=== PATIENT | male | born 1970 | race Two or more races ===

== ENCOUNTER 2025-05-28 08:01 | Inpatient (IN) | payer OTHER, SELFPAY ==
[2025-05-26 14:19] VITALS: BP 156/96
[2025-05-26 18:17] VITALS: BMI 31.5
[2025-05-26 18:20] VITALS: BP 179/111
[2025-05-26 19:00] LABS: Hematocrit 46.3 % (39.0-52.0); Hemoglobin 16.0 g/dL (13.0-18.0); Mean Corp Hgb Conc. 34.6 g/dL (33.0-37.0); Mean Corpuscular Volume 80.7 fL (80.0-94.0); Nucleated Red Blood Cells % 0 % (-); Platelet Count 301 10^3/uL (130-400); Red Cell Dist. Width 13.3 % (11.5-14.5)
[2025-05-26 19:15] LABS: ALT (SGPT) 37 U/L (0-50); AST (SGOT) 32 U/L (17-59); Albumin 4.8 g/dl (3.5-5.0); Alkaline Phosphatase 101 U/L (38-126); Blood Urea Nitrogen 11 mg/dl (9-20); Calcium 9.6 mg/dl (8.4-10.2); Carbon Dioxide 24 mmol/L (22-30); Chloride 106 mmol/L (98-107); Estimated Creatinine Clearance > 125 ml/min; Glucose 90 mg/dl (70-99); Potassium 3.6 mmol/L (3.5-5.1); Sodium 141 mmol/L (135-145); Total Protein 7.3 g/dl (6.3-8.2); eGFR > 60.00
--- NOTE | 2025-05-26 20:03 | ED.GENMED ---
History of Present Illness
General
Chief Complaint: Weakness
Source: patient and family
Exam Limitations: none
Time Seen by Provider: 05/26/25 18:06
Nursing documentation reviewed up to this point in time: agreed with
History of Present Illness
History of Present Illness:
55-year-old male presenting to the emergency department today with concerns of significant weakness diffusely maximal to the lower extremities. Apparently has had some degree of weakness to his lower extremities for many years. He follow-up with a
primary care doctor about this and he was told that he has muscle atrophy. He did have a back injury as a child and had some degree of weakness that was ongoing. He claims that over the past few years this has been worsening but specifically over
the past few days has gotten to the point where he cannot engage in activities of daily living. He was unable to get in and out of a car today. He has been using a cane for multiple years. He denies any known specific diagnosis is otherwise. He
does have a history of back surgeries. He has clonus and weakness in the arms as well as legs. Denies any recent fevers nausea vomiting chest pain shortness of breath any changes in bowel movements or bladder function.
Past History
Past History
ED Past Medical History: None
ED Past Surgical History: None
Social History
Tobacco: Non-smoker
Review of Systems
Review of Systems
Allergies reviewed?: Yes
All Other Systems: ROS reviewed and negative except as documented in HPI and ROS
Phy Exam
Physical Exam
Physical Exam:
GENERAL: Alert , in no apparent distress
EYE: pupils equal and reactive
NECK: Supple, no significant adenopathy.
ENT: o/p clr, mmm.
CARDIAC: Regular rate and rhythm .
LUNGS: Clear breath sounds bilaterally, no acute respiratory distress, no wheezes/rales/rhonchi
ABDOMEN: Soft, without focal tenderness, no r/g, no cvat
NEUROLOGICAL: Alert and oriented, patient is unable to move the lower extremities bilaterally to any significant extent. Unable to move against gravity. Does not have patellar tendon reflexes that are appreciable on my exam. Does have sensation
but claims that it is decreased bilaterally. 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
SKIN: Warm and dry, skin intact.
MUSCULOSKELETAL: No edema, well perfused.
PSYCH: Normal and appropriate interaction.
Course
Orders/Labs/Results
Orders:
Orders
05/26/25 18:31
CT Head W/o Iv Contrast Urgent
Comment:
Reason For Exam: diffuse weakness
05/26/25 18:50
CBC/With Diff [Complete Blood Count/With Diff] Urgent
CMP [Comprehensive Metabolic Panel] Urgent
ESR [Erythrocyte Sed Rate] Urgent
05/26/25 20:05
CRP [C-Reactive Protein] Urgent
Urinalysis Reflex To Culture Urgent
Date Specimen was Collected: 05/26/25
Time Specimen was Collected: 19:53
Urine Microscopic Reflex Cult Urgent
Abnormal Lab Results
05/26/25 05/26/25
18:50 20:05
Absolute Neuts (auto) 7.7 H 10^3/uL
(1.4-6.5)
Absolute Monos (auto) 0.7 H 10^3/uL
(0.1-0.6)
Neutrophils % 79.9 H %
(42.2-75.2)
Lymphocytes % 12.7 L %
(20.5-51.1)
Creatinine 0.4 L mg/dL
(0.7-1.3)
Total Bilirubin 3.0 H mg/dl
(0.2-1.3)
Urine Ketones 3+ A
(Negative)
Ur Occult Blood Reflex 1+ A
(Negative)
Urine RBC 3-6 A /HPF
(0-2)
Urine Bacteria (Reflex) Few A
(Negative)
Urine Albumin (Reflex) 1+ A
(Neg - Trace)
05/26/25 18:50
05/26/25 18:50
Vital Signs
Initial and Last Documented VS:
Initial Vital Signs
Temp Pulse Resp BP Pulse Ox
98.8 F 108 16 156/96 98
05/26/25 14:19 05/26/25 14:19 05/26/25 14:19 05/26/25 14:19 05/26/25 14:19
Last Documented Vital Signs
Temp Pulse Resp BP Pulse Ox
98.8 F 68 15 153/109 94
05/26/25 14:19 05/27/25 00:11 05/27/25 00:11 05/27/25 00:12 05/27/25 00:11
MDM/Problems Addressed
MDM/Problems Addressed:
55-year-old male presenting to the emergency department today with concerns of generalized weakness fatigue maximal to his legs worsening over many years but specifically severe over the past few days. He has no specific explanation for this does
not follow-up with any outpatient doctors for this. This finally got so bad that he cannot perform normal activities at home. No specific explanation labs urinalysis or head CT. Plan to admit for PT assessment management consult and potential
neuroeval
*Pulse Oximetry
SaO2: 100
Oxygen Mode of Delivery: Room air
Patient hypoxic: no (94)
*Critical Care Note
Total Time (30-74mins, 75-104mins- exclusive of procedures): Not Applicable
ED Attending Note
-
Portions of this chart may have been created with voice recognition software.� Occasional wrong word or��sound alike� substitutions may have occurred due to the inherent limitations of voice recognition software.
Discharge Plan
Departure
Patient Disposition: Admit
Date of Disposition: 05/27/25
Time of Disposition: 00:15
Admit to: Med/Surg
Admit to doctor: Angelica
Presentation/result/management discussed w/ accepting MD/DO: Hospitalist
Patient with high blood pressure during this ER visit?: No
Condition: Good
Covid-19: Not Applicable
Discharge Problem:
Generalized weakness
Prescriptions:
No Action
clindamycin HCl 300 MG capsule
300 mg PO TID Qty: 21 0RF
Referrals:
Foster Valencia MD [Family Provider, Internal Medicine]
Interventions
Interventions:
*Risk Screen - Suicide Last Done: 05/26/25 14:19
*General Assessment Last Done: 05/26/25 18:13
*Neglect/Abuse Screening Last Done: 05/26/25 14:19
*ED- Fall Risk Assessment Last Done: 05/26/25 18:13
*ED COVID-19 Vaccine History Last Done: 05/26/25 18:13
ED- Cardiac Assessment Last Done: 05/26/25 18:13
ED- Neurological Assessment Last Done: 05/26/25 18:13
ED- Pulmonary Assessment Last Done: 05/26/25 18:13
Discharge Date and Time
Print Language: CZECH
[2025-05-26 20:15] LABS: Urine Character Clear (Clear)
[2025-05-26 20:23] LABS: Urine Squamous Cell 0-2 /LPF (Few)
[2025-05-26 20:40] LABS: C-Reactive Protein < 5.00 mg/L (0.0-10.00)
[2025-05-27] VITALS (11 sets, daily range): BP systolic 128–169; BP diastolic 82–109; BMI 28.6
--- NOTE | 2025-05-27 01:29 | HPS.HSE ---
Family Physician
-
Family Physician: Foster Valencia MD
Chief Complaint
-
Weakness
History of Present Illness
This is a 55-year-old male who reports a past medical history of spinal stenosis of the lumbar spine requiring fusion of L4-5 and discectomy at age 19 with residual weakness ever since presenting to the emergency department with progressive weakness
over the last several months without any specified time of change.
Patient reported that about 6 years ago he has had chronic worsening weakness and was evaluated by physicians. He had lab studies and they did not find any abnormality. He was started on physical therapy. Was told that he had significant muscle
atrophy. However patient was unable to continue with physical therapy during COVID. He also attempted home physical therapy but insurance will not cover.
Patient stated that over the last few weeks he has been planning on starting therapy in the fall but his weakness has worsened to the point of coming to the emergency department. He reports that he is now unable to ambulate will despite use of a
walker. He has to crawl to get himself between bedside and commode. He also has difficulty using his bilateral upper extremities for support. Patient denies having any pain. He denies any neck pain or back pain. He denies any paresthesias or
numbness. He denies any recent injuries. He has no fevers or chills. He denies any nausea vomiting or diarrhea. He denies having any headache. There has been no vision changes. He denies any urinary symptoms specifically denies incontinence of
the bowel or bladder. He has not followed with any physician for many years.
In the emergency department he was afebrile, blood pressure was 150/100 with a pulse of 68 satting 98% on room air.
CBC was unremarkable. Electrolytes BUN and creatinine were all in the normal range. His LFTs were normal. Inflammatory markers were negative. Her urinalysis was negative. CT of the head shows no acute intracranial abnormality.
Medical History
Past Medical History
Past Medical History: Reports Other (Chronic generalized weakness, lumbar stenosis status post L4-5 fusion and discectomy at age 19)
Past Surgical History: Reports Orthopedic
Social History
Tobacco: Non-smoker
Alcohol: Occasional
Drug: None
Personal: Single
Living: Alone
Employment: Employed
Family History
Family History: Not pertinent
Allergies / Home Medications
Allergies reflects when Allergies were last updated in [facility].
Home Medications with original date entered in [facility]
Allergy/Medication List:
Allergies
Allergy/AdvReac Type Severity Reaction Status Date / Time
amoxicillin Allergy Anaphylaxis Verified 05/26/25 14:18
Penicillins Allergy Anaphylaxis Verified 05/26/25 14:18
povidone-iodine (From Allergy Rash Verified 05/26/25 14:18
Betadine)
Home Medications
clindamycin HCl 300 mg capsule 300 mg PO TID #21 caps 04/20/17
Review of Systems
-
Constitutional: Reports No Symptoms
EENT: Reports No Symptoms
Respiratory: Reports No Symptoms
Cardiac: Reports No Symptoms
Abdomen/GI: Reports No Symptoms
: Reports No Symptoms
Musculoskeletal: Reports No Symptoms
Skin: Reports No Symptoms
Neurological: Reports Weakness
Endocrine: Reports No Symptoms
Hematologic/Lymphatic: Reports No Symptoms
Psych: Reports No Symptoms
Physical Exam
Vital Signs
Vital Signs
Temp Pulse Resp BP Pulse Ox
98.8 F 68 15 153/109 94
05/26/25 14:19 05/27/25 00:11 05/27/25 00:11 05/27/25 00:12 05/27/25 00:11
Physical Exam
General: Well Developed, Well Nourished and No Apparent Distress
HEENT: NormoCephalic, Moist mucous membranes and Atraumatic
Respiratory: Clear
Cardiac: S1/S2 and Regular Rhythm; No Murmur or Rub
GI: Soft, Non Tender, Non Distended and Normal Bowel Sounds; No Organomegaly
Rectal: Deferred by Provider
Musculoskeletal: No Clubbing, No Cyanosis and No Edema
Skin: No Rash
Neuro: AO x 3, Cranial Nerves Intact and Other (3 out of 5 weakness in bilateral lower extremities from the hip to the ankles and toes. 3 out of 5 to 4 out of 5 weakness in the upper extremities bilaterally. Negative straight leg raise)
Hematologic/Lymphatic: No Lymphadenopathy
Laboratory Results
-
05/26/25 18:50
05/26/25 18:50
Laboratory Results
Total Bilirubin 3.0 mg/dl (0.2-1.3) H 05/26/25 18:50
AST 32 U/L (17-59) 05/26/25 18:50
ALT 37 U/L (0-50) 05/26/25 18:50
Alkaline Phosphatase 101 U/L (38-126) 05/26/25 18:50
Data Reviewed
-
CT Scan: Report Reviewed by me
Lab Data: Labs Reviewed by me
Impression/Plan
-
IMPRESSION:
55-year-old with longstanding history of generalized weakness secondary to L4-5 fusion at age 19 presenting to the emergency department with worsening weakness without any findings of an acute infectious process, no focal deficits consistent with
stroke and a negative CT, labs shows no toxic metabolic encephalopathy send patient has no new medications or intoxications.'s examination is negative for an acute spinous process with negative stress left leg and no neck pain or tenderness. He has
no alarm signs such as bladder or bowel incontinence and no saddle anesthesia. He is weakness seems to be quite profound and out of proportion to his ability to manage at home.
PLAN:
Generalized weakness -history of L4-5 fusion with chronic lower extremity weakness and also has had chronic upper extremity weakness that was thought to be secondary to muscle atrophy now presenting with inability to ambulate and manage at home. No
focal findings on history exam labs or imaging. No vision changes or CN anomaly suggestive of MG/LE.
-Admit to MedSurg observation
-Will get MRI of the brain and C-spine
-Inflammatory markers are negative, will check CPK but unlikely any myopathy
-No indication for any new pain control agent
-Start PT evaluation
-Case management for discharge planning
DVT prophylaxis�Lovenox subcu
CODE STATUS�full code
--- NOTE | 2025-05-27 03:30 | PTCARENOTE ---
Received patient from ED. Patient AAOx3, transferred directly from stretcher to the bed. Patient assessed. Patient's legs very weak. Patient verbalized an understanding to ring for all transfers. Patient oriented to the unit. Bed alarm placed.
[2025-05-27 06:28] LABS: Blood Urea Nitrogen 8 mg/dl (9-20); Calcium 9.3 mg/dl (8.4-10.2); Carbon Dioxide 22 mmol/L (22-30); Chloride 106 mmol/L (98-107); Estimated Creatinine Clearance > 125 ml/min; Glucose 85 mg/dl (70-99); Potassium 3.2 mmol/L (3.5-5.1); Sodium 140 mmol/L (135-145); eGFR > 60.00
[2025-05-27] MEDS: 0.45%NACL 1000 IV ×2 (09:29→22:53)
[2025-05-27] MEDS: KCL 40 MEQ PO (09:33)
--- NOTE | 2025-05-27 12:00 | W.PN.HOSP.TC ---
Today's Communication/Plan
-
Assessment / Plan
Assessment / Plan
General: No Apparent Distress, Comfortable and Conversant
HEENT: NormoCephalic, Moist mucous membranes, Atraumatic
Respiratory: Clear and Non Labored Respirations
Cardiac: S1/S2 and Regular Rhythm; No Rub or Gallop
GI: Soft, Non Tender, Non Distended and Normal Bowel Sounds
Musculoskeletal: No Edema, no deformity, decreased muscle bulk throughout upper and lower extremities
Skin: Warm and dry
: NO Urena
Neuro: Awake, Alert, Nonfocal/grossly intact, upper extremity paresthesias, generalized weakness in his extremities lower extremities worse than upper extremities
Psych: Calm and Intact Judgment/Insight
Mr. Collins is a 55-year-old male with a medical history of lumbar spinal stenosis (due to vertebral disc herniations, status post spinal fusion at age 19) who presented with progressive weakness in his upper and lower extremities over the past few
months which is now limiting his ability to ambulate. He had previously been able to ambulate with the assistance of a cane or walker. However, recently he has had to move about his home by crawling and now his arms have become so weak he is
unable even to do that which is why he has presented for medical evaluation. He does not follow-up with any physicians on a regular basis.
Generalized weakness:
- Appears acute on chronic as he had some residual lower extremity weakness following his spinal fusion at age 19, however has worsened over the last few months and is now affecting his arms as well
- No demyelinating disease seen on brain and C-spine MRI, does show C5-6 uncovertebral/facet disease contributing to minimal spinal canal and moderate neuroforaminal stenosis
- Does have mildly elevated CK
- Appreciate neurology input
- To be evaluated by PT/OT
- Only mild electrolyte abnormalities with serum potassium of 3.2 which is being repleted
Hypokalemia:
- Mild, replete
- Monitor
Elevated CK:
- Mild to moderately elevated at 477
- Does not meet criteria for rhabdomyolysis although this may be a smoldering case due to neuromuscular pathology
- No renal dysfunction
- Continue IV fluids
- ESR and CRP negative
- Further neurology evaluation for possible neuromuscular pathology
- Repeat CK with morning labs
Hyperbilirubinemia:
- No abdominal symptoms
- Appears to be an isolated hyperbilirubinemia
- Transaminases and alk phos within normal limits
- Will repeat LFTs in the morning with a direct bilirubin
Hypertension:
- Not on antihypertensive medications at home although does not follow-up regularly with physicians
- Will start him on low-dose losartan especially considering proteinuria
- Monitor, adjust regimen as needed
DVT prophylaxis: Lovenox
CODE STATUS: Full code
Total time spent on today's encounter was 52 minutes
Anticipated Discharge: 24 - 48 hours
Subjective/Interval History
-
Date of Service: May 27, 2025
Patient was seen and examined at bedside this morning. Still feeling generalized weakness in his arms and legs.
Objective Data
-
Labs:
Laboratory Results
05/27/25
05:09
Sodium 140
Potassium 3.2 L
Chloride 106
Carbon Dioxide 22
BUN 8 L
Creatinine 0.4 L
Glucose 85
Calcium 9.3
Vital Signs:
Vital Signs
Temp Pulse Resp BP Pulse Ox
98.2 F 92 16 165/98 100
05/27/25 07:05 05/27/25 09:44 05/27/25 07:05 05/27/25 09:44 05/27/25 10:15
Review of Systems
-
History Source: Patient
All other systems: Reviewed and negative
Constitutional: Reports Weakness
Physical Exam
-
General: No Apparent Distress
[2025-05-27] MEDS: COZAAR 25 MG PO (12:44)
--- NOTE | 2025-05-27 16:39 | CM ---
Met with patient at bedside
Pharmacy verified: [facility] @ [address] [place] [address]
Lives alone; split level home; 73 yr old mother is visiting for now; 0 steps to enter home; unable to do the stairs; make shift one floor living space on the lower level of the house
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
Transportation home to be determined; arrived via ambulance
No SNF or Home Health utilization history
CM Consult for Home Health/VN; agency options identified; preference is [facility]; referral sent via [facility]
Plan: Discharge to home when medically stable w/ Home Health services
--- NOTE | 2025-05-27 16:44 | CON.NEURO ---
Neuro Assessment/Plan
Assessment
brain MRI imgs rev'd, normal
MRI c-spine report rev'd mild degenerative changes that do not explain his quadriparesis
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
check EMG, TT sent to Dr Casas to see if its possible
spoke with patient/family re suspected dx, EMG, and if CIDP then IVIG
Consultation
Order
Date of Consultation: 05/27/25
Requesting Provider:
Reason for Consult:
Subjective/Objective
Subjective Data
Date of Service: May 27, 2025
from h&p:
This is a 55-year-old male who reports a past medical history of spinal stenosis of the lumbar spine requiring fusion of L4-5 and discectomy at age 19 with residual weakness ever since presenting to the emergency department with progressive weakness
over the last several months without any specified time of change.
Patient reported that about 6 years ago he has had chronic worsening weakness and was evaluated by physicians. He had lab studies and they did not find any abnormality. He was started on physical therapy. Was told that he had significant muscle
atrophy. However patient was unable to continue with physical therapy during COVID. He also attempted home physical therapy but insurance will not cover.
Patient stated that over the last few weeks he has been planning on starting therapy in the fall but his weakness has worsened to the point of coming to the emergency department. He reports that he is now unable to ambulate will despite use of a
walker. He has to crawl to get himself between bedside and commode. He also has difficulty using his bilateral upper extremities for support. Patient denies having any pain. He denies any neck pain or back pain. He denies any paresthesias or
numbness. He denies any recent injuries. He has no fevers or chills. He denies any nausea vomiting or diarrhea. He denies having any headache. There has been no vision changes. He denies any urinary symptoms specifically denies incontinence of
the bowel or bladder. He has not followed with any physician for many years.
patient tells me at age 19 herniated disc/sports injury with left>right leg weakness, had 2x discectomy no hardware made a full recovery. did well until ~6 years ago then developed weakness left then right leg but was able to function. past few
months rapidly progress weakness, and 1.5 weeks unable to function.
+tingling hands/feet, +pain from pinched nerve by left shoulder
Last EMG age 19 prior to spine surgery
fhx: mom has 3x autoimmune diseases
Objective Data
Vital Signs
Temp Pulse Resp BP Pulse Ox
37.6 C 87 16 143/97 97
05/27/25 15:15 05/27/25 15:15 05/27/25 15:15 05/27/25 15:15 05/27/25 15:15
Lab Results
05/26/25 18:50
05/27/25 05:09
Sodium 140 mmol/L (135-145) 05/27/25 05:09
Potassium 3.2 mmol/L (3.5-5.1) L 05/27/25 05:09
BUN 8 mg/dl (9-20) L 05/27/25 05:09
Glucose 85 mg/dl (70-99) 05/27/25 05:09
Calcium 9.3 mg/dl (8.4-10.2) 05/27/25 05:09
Patient Allergies
amoxicillin Allergy (Verified 05/26/25 14:18)
Anaphylaxis
Penicillins Allergy (Verified 05/26/25 14:18)
Anaphylaxis
povidone-iodine (From Betadine) Allergy (Verified 05/26/25 14:18)
Rash
Physical Exam
-
AAOx3, speech clear, language intact
VFF, EOMI, face symmetric
bilateral arms some antigravity, bilateral legs move in plane of bed
diffusely decreased pinprick, moderate vibratory loss left > right leg, and mild vibratory loss
areflexic x4
Medications
-
Active Medications
Generic Name Dose Route Start Last Admin
Trade Name Freq PRN Reason Stop Dose Admin
Acetaminophen 650 mg 05/27/25 03:09
Acetaminophen 325 Mg Tablet PO 06/24/25 03:08
Q4HPRN PRN
mild pain/MARQUES/temp> 100.4F
Bisacodyl 10 mg 05/27/25 03:09
Bisacodyl 10 Mg Rectal Suppository RECTAL 06/24/25 03:08
[id number] PRN
constipation
Enoxaparin Sodium 40 mg 05/27/25 18:00
Enoxaparin Sodium 40 Mg/0.4 Ml Syringe SC 06/24/25 17:59
QPM LAVELLE
Sodium Chloride 1,000 mls @ 80 mls/hr 05/27/25 09:00 05/27/25 09:29
0.45%Nacl IV 1,000 mls
.[id number] LAVELLE Administration
Losartan Potassium 25 mg 05/27/25 13:00 05/27/25 12:44
Losartan 25 Mg Tablet PO 06/24/25 12:59 25 mg
DAILY LAVELLE Administration
Ondansetron HCl 4 mg 05/27/25 03:09
Ondansetron 4 Mg/2 Ml Vial IV 06/24/25 03:08
Q6HPRN PRN
nausea and vomiting
Polyethylene Glycol 17 grams 05/27/25 03:09
Polyethylene Glycol Powder 17 Grams Packet PO 06/24/25 03:08
DAILYPRN PRN
constipation
Senna/Docusate Sodium 1 tablet 05/27/25 03:09
Docusate W/Senna (Kelsie-Colace) Tablet PO 06/24/25 03:08
BIDPRN PRN
constipation
Home Medications
�Medication �Instructions �Recorded
clindamycin HCl 300 mg capsule 300 mg PO TID #21 caps 04/20/17
--- NOTE | 2025-05-27 16:47 | CM ---
Addendum entered by Sugey Rosales 05/27/25 16:55:
Both CM consults were completed; no home health referrals were sent
Notified Attending via [facility] [employer] and requested PM&R consult order to determine if patient meets Acute Rehab criteria
Original Note:
Met with patient at bedside
Ph[facility] verified[facility] [address] [place] [address]
Lives alone; split level home; 73 yr old mother is visiting for now; 0 steps to enter home; unable to do the stairs; make shift one floor living space on the lower level of the house
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
Transportation home to be determined; arrived via ambulance
No SNF or Home Health utilization h
Discharge plan to be determined; PT recommends Acute Rehab vs. SNF; patient is agreeable with either
[2025-05-27] MEDS: LOVENOX 40 MG SC (17:06)
[2025-05-28 07:02] VITALS: BP 136/84
[2025-05-28 08:04] LABS: Hematocrit 42.4 % (39.0-52.0); Hemoglobin 14.2 g/dL (13.0-18.0); Mean Corp Hgb Conc. 33.5 g/dL (33.0-37.0); Mean Corpuscular Volume 83.3 fL (80.0-94.0); Nucleated Red Blood Cells % 0 % (-); Platelet Count 241 10^3/uL (130-400); Red Cell Dist. Width 13.3 % (11.5-14.5)
[2025-05-28] MEDS: COZAAR 25 MG PO (08:18)
[2025-05-28 08:42] LABS: ALT (SGPT) 27 U/L (0-50); AST (SGOT) 21 U/L (17-59); Albumin 3.8 g/dl (3.5-5.0); Alkaline Phosphatase 72 U/L (38-126); Blood Urea Nitrogen 7 mg/dl (9-20); Calcium 9.2 mg/dl (8.4-10.2); Carbon Dioxide 25 mmol/L (22-30); Chloride 107 mmol/L (98-107); Estimated Creatinine Clearance > 125 ml/min; Glucose 106 mg/dl (70-99); Magnesium 2.0 mg/dl (1.6-2.3); Potassium 4.2 mmol/L (3.5-5.1); Sodium 138 mmol/L (135-145); Total Protein 6.1 g/dl (6.3-8.2); eGFR > 60.00
[2025-05-28 09:49] LABS: C-Reactive Protein < 5.00 mg/L (0.0-10.00)
--- NOTE | 2025-05-28 10:13 | W.PN.NEURO.1 ---
Addendum entered and electronically signed by Prince Crespo MD 05/28/25 16:46:
Studies reviewed.
I have personally examined the patient. I reviewed and agree with the [employer] REPAIRER's Note.
My addenda:
Awake, alert, interactive. No acute distress.
Speech intact.
Follows 2-step requests w/o difficulty. No tremor.
Extra-ocular movements grossly intact.
Facial movements full and symmetric. Hearing intact to normal conversational volume.
Shoulder shrug equal bilaterally, unable to extend bilateral upper extremities fully. Unable to elevate legs off of bed
Neck: full ROM.
Chest: no dyspnea
Heart: no JVD
Ext: (-) Clubbing, (-) Cyanosis, (-) Edema
IMPRESSIONS/RECOMMENDATIONS:
Progressive onset of weakness beginning in bilateral lower extremities and progressing to involve bilateral upper extremities with mildly elevated CPK in the 300s�400s, elevated bilirubin and hyporeflexia. Symptoms are not variable during the day
or with activity. Imaging of the brain and cervical spine have been unremarkable. Differential diagnosis includes CIDP, myotonic dystrophy, metabolic disorder, and myasthenia gravis although this is unlikely
Check upper and lower extremity EMG study to determine if there is a motor and sensory component to symptoms as well as needle portion to determine if there is a muscular abnormality
Supportive care by physical therapy
Check blood work potential abnormalities
Consider lumbar puncture
No real benefit to imaging of the thoracic or lumbar spines
D/W patient
All questions answered.
Will continue to follow patient.
Original Note:
Today's Communication / Plan
-
-check EMG as planned
-check LP
-check blood work for metabolic disturbances
-PT/OT evaluations
-DVT prophylaxis
Neuro Assessment/Plan
Assessment
55 year old male with a medical history of lumbar spinal stenosis (due to vertebral disc herniations, status post spinal fusion at age 19) who presented with progressive weakness in his upper and lower extremities over the past few months which is
now limiting his ability to ambulate.
brain MRI imgs rev'd, normal
MRI c-spine report rev'd mild degenerative changes that do not explain his quadriparesis
Plan
Impression: progressive weakness of upper and lower extremities now limiting ambulation most likely due to neuromuscular disease as brain MRI and cervical MRI do not explain symptoms
-check EMG as planned
-check LP
-check blood work for metabolic disturbances
-PT/OT evaluations
-DVT prophylaxis
Subjective/Objective
Subjective Data
Date of Service: May 28, 2025
Right handed male, had 2 herniated discs and having sensation changes and weakness to b/l legs at the age of 19 which required surgery. Recently, progressive b/l leg weakness ongoing for a couple of years. Has done PT and did not see any
improvement. Has never seen a neurologist, as never obtained nerve testing. States left LLE worse than RLE. Upper extremities have been stable until a few months ago and now having more weakness. No issues with vision, no issues with speech or
swallowing. Denies issues with bowel/bladder.
Objective Data
Vital Signs
Temp Pulse Resp BP Pulse Ox
97.7 F 64 16 136/84 100
05/28/25 07:02 05/28/25 07:02 05/28/25 07:02 05/28/25 07:02 05/28/25 07:02
Lab Results
05/28/25 06:57
05/28/25 06:57
Sodium 138 mmol/L (135-145) 05/28/25 06:57
Potassium 4.2 mmol/L (3.5-5.1) D 05/28/25 06:57
BUN 7 mg/dl (9-20) L 05/28/25 06:57
Glucose 106 mg/dl (70-99) H 05/28/25 06:57
Calcium 9.2 mg/dl (8.4-10.2) 05/28/25 06:57
Phosphorus 3.8 mg/dl (2.5-4.5) 05/28/25 06:57
Vitamin B12 Cancelled 05/28/25 08:31
Patient Allergies
amoxicillin Allergy (Verified 05/26/25 14:18)
Anaphylaxis
Penicillins Allergy (Verified 05/26/25 14:18)
Anaphylaxis
povidone-iodine (From Betadine) Allergy (Verified 05/26/25 14:18)
Rash
Review of Systems
-
History Source: Patient
Constitutional: Weakness
EENT: No Symptoms Reported
Respiratory: No Symptoms
Cardiac: No Symptoms
Abdomen/GI: No Symptoms
Genitourinary: No Symptoms
Musculoskeletal: Muscle Weakness
Skin: No Symptoms
Neuro: Weakness
Physical Exam
-
General: No Apparent Distress and Comfortable
HEENT: Normocephalic, Atraumatic and Anicteric
Neck: Limited Range of Motion
Respiratory: No Dyspnea
Cardiac: No JVD
GI: Non-distended
Skin: Unremarkable
Extremities: No Clubbing, No Cyanosis and Edema +1 (b/l LEs)
Psych: Unremarkable
Extended Neurological Exam
Mood & Affect: Mood Unremarkable
Attention Span & Concentration: Awake, Interactive and No Difficulty with 2 Step Request
Memory: Unremarkable
Tremor: Hand Tremor Absent and Head Tremor Absent
Involuntary Movement: None
Speech: Quality Unremarkable, Quantity Unremarkable and Rate of Production Unremarkable
Cranial Nerves III, IV, : Extraocular Movement: Extraocular Movement Full in all Directions
Cranial Nerve VII: Facial Symmetry: Normal Facial Symmetry
Cranial Nerve VIII: Hearing: Unremarkable Hearing to Normal Conversational Volume
Muscle Strength, Overall: Reduced Bilaterally (LLE 2/5 RLE 2/5, b/l foot drop)
Pronator Drift: No Drift in Upper Extremities
Deep Tendon Reflexes: Absent Throughout (brachial radialis and b/l LEs)
Coordination: [id number] Testing Unremarkable and Reaches for Objects without Difficulty
Data Reviewed
-
CT Head: Report Reviewed and Image Reviewed
MRI Head: Report Reviewed and Image Reviewed
MRI Cervical Spine: Report Reviewed and Image Reviewed
Labs: Report Reviewed
EMG: Ordered
Reviewed with: Physician and Patient
Old Records: Summarized
[2025-05-28 10:55] LABS: Folate 10.9 ng/ml (2.76-20); Vitamin B12 264 pg/ml (239-931)
[2025-05-28] MEDS: 0.45%NACL 1000 IV (11:22)
--- NOTE | 2025-05-28 11:54 | W.PN.HOSP.TC ---
Today's Communication/Plan
-
EMG
Continue PT OT
Assessment / Plan
Assessment / Plan
Mr. Collins is a 55-year-old male with a medical history of lumbar spinal stenosis (due to vertebral disc herniations, status post spinal fusion at age 19) who presented with progressive weakness in his upper and lower extremities over the past few
months which is now limiting his ability to ambulate. He had previously been able to ambulate with the assistance of a cane or walker. However, recently he has had to move about his home by crawling and now his arms have become so weak he is
unable even to do that which is why he has presented for medical evaluation. He does not follow-up with any physicians on a regular basis.
Generalized weakness secondary to muscle weakness and atrophy
Clinical concern for neuromuscular disease
- Appears acute on chronic as he had some residual lower extremity weakness following his spinal fusion at age 19, however has worsened over the last few months and is now affecting his arms as well
- No demyelinating disease seen on brain and C-spine MRI, does show C5-6 uncovertebral/facet disease contributing to minimal spinal canal and moderate neuroforaminal stenosis
- Does have mildly elevated CK
- Appreciate neurology input-for EMG. Consider lumbar puncture.
- To be evaluated by PT/OT
- Only mild electrolyte abnormalities with serum potassium of 3.2 which is being repleted
Elevated CK:
- Mild to moderately elevated at 477
- Does not meet criteria for rhabdomyolysis although this may be a smoldering case due to neuromuscular pathology
- No renal dysfunction
- ESR and CRP negative
- Further neurology evaluation for possible neuromuscular pathology
Hyperbilirubinemia:
- Elevated and direct suspicious for Gilbert's
- No abdominal symptoms
- Appears to be an isolated hyperbilirubinemia
- Transaminases and alk phos within normal limits
Hypertension:
- Not on antihypertensive medications at home although does not follow-up regularly with physicians
- Will start him on low-dose losartan especially considering proteinuria
- Monitor, adjust regimen as needed
DVT prophylaxis: Lovenox
CODE STATUS: Full code
Anticipated Discharge: > 48 hours
Subjective/Interval History
-
Date of Service: May 28, 2025
Voices no new symptoms. Continued weakness in the extremities. Denies any bowel bladder disturbances. Denies any swallowing difficulties.
Objective Data
-
Labs:
Laboratory Results
05/28/25
06:57
WBC 6.4
Hgb 14.2
Hct 42.4
Plt Count 241
Sodium 138
Potassium 4.2 D
Chloride 107
Carbon Dioxide 25
BUN 7 L
Creatinine 0.4 L
Glucose 106 H
Calcium 9.2
Total Bilirubin 2.9 H
AST 21
ALT 27
Alkaline Phosphatase 72
Vital Signs:
Vital Signs
Temp Pulse Resp BP Pulse Ox
97.7 F 64 16 136/84 100
05/28/25 07:02 05/28/25 07:02 05/28/25 07:02 05/28/25 07:02 05/28/25 07:02
I&O
05/27/25 05/28/25 05/29/25
06:59 06:59 06:59
Intake Total 2087 / 2087
Output Total 1725 / 1725 500 / 500
Balance 363 / 363 -500 / -500
Physical Exam
-
General: Comfortable
Respiratory: Non Labored Respirations; Negative Accessory Resp Muscle Use
Neuro: AO x 3; Negative No Motor Deficits (BL LE 2/5 ; BL UE 4/5; atrophied lumbar muscles noted)
Data Reviewed
-
Labs: Labs Reviewed by me
[2025-05-28 15:29] VITALS: BP 146/91
--- NOTE | 2025-05-28 15:35 | CM ---
CM following re: discharge planning.
Reviewed pt's chart, met with pt and pt's mother at bedside.
PT and OT evaluations noted - acute rehab vs SNF recommended. Both pt and his mother are aware, expressed their agreement. [facility]hab requested. CM explained admission criteria for an acute rehab level of carte.
SNF level of care as an alternative discussed with the pt and his mother and they requested [facility]. A referral to [facility] made.
D/C plan: [facility] or [facility].
CM will follow to assist pt with discharge plan updates as hospitalization progresses
[2025-05-28] MEDS: LOVENOX 40 MG SC (18:21)
--- NOTE | 2025-05-28 18:55 | W.PN.UPDATE ---
Update Note
Progress Note Update
EMG/NCS of the left upper and left lower limbs was completed in the patient's hospital room.
Needle EMG abnormalities are present consistent with inflammatory or toxic/necrotic myopathy. Low amplitude, short duration polyphasic motor unit potentials with early recruitment are present throughout the left lower limb and in the left upper limb
but sparing the hand intrinsic musculature. Needle EMG abnormalities in the left leg show partial muscle fibrosis. Increased insertional activity and abnormal spontaneous activity reflecting acute muscle denervation is present in the proximal left
upper limb.
The abnormalities can be seen in polymyositis as well as inclusion body myositis although there are no hand intrinsic muscle abnormalities to suggest inclusion body myositis.
Full dictated report and tabular data sheets to follow.
[2025-05-28 23:00] VITALS: BP 143/86
[2025-05-29 07:05] VITALS: BP 136/87
[2025-05-29 07:17] LABS: Blood Urea Nitrogen 10 mg/dl (9-20); Calcium 9.5 mg/dl (8.4-10.2); Carbon Dioxide 24 mmol/L (22-30); Chloride 108 mmol/L (98-107); Estimated Creatinine Clearance > 125 ml/min; Glucose 112 mg/dl (70-99); Potassium 3.9 mmol/L (3.5-5.1); Sodium 139 mmol/L (135-145); eGFR > 60.00
[2025-05-29] MEDS: COZAAR 25 MG PO (07:35)
[2025-05-29] MEDS: VITAMIN B-12 1000 MCG PO (08:57)
--- NOTE | 2025-05-29 09:21 | W.PN.NEURO.1 ---
Addendum entered and electronically signed by Prince Crespo MD 05/29/25 16:20:
Studies reviewed.
I have personally examined the patient. I reviewed and agree with the [employer] RESPONDER's Note.
My addenda:
Awake, alert, interactive. No acute distress.
Speech intact. No tremor.
Extra-ocular movements grossly intact.
Facial movements full and symmetric. Hearing intact to normal conversational volume.
Normal UE movements bilaterally.
Neck: full ROM.
Chest: no dyspnea
Heart: no JVD
Ext: (-) Clubbing, (-) Cyanosis, (-) Edema
IMPRESSIONS/RECOMMENDATIONS:
Abrupt onset of worsening of bilateral upper and bilateral lower extremity weakness. EMG study was suggestive of polymyositis despite unremarkable ESR and CRP findings and minimally elevated CPK findings
Based on this finding and absence of neuropathic changes, patient will require further evaluation by subspecialists. Differential diagnosis includes hereditary myopathy despite absence of clear familial association and inflammatory causes.
Patient will need outpatient evaluation at [facility] at [facility]
Continue rehabilitation evaluations and treatment
There is no evidence that the patient would benefit from steroid infusions at this time
There is no evidence at this time the patient would benefit from lumbar puncture
Patient may require muscle biopsy which should be performed at a subspecialty center
Patient likely will need genetic testing to better determine if that is the cause for the patient's symptoms
Continue to replace newly discovered low vitamin B12 level
D/W patient
All questions answered.
Will continue to follow as needed.
Original Note:
Today's Communication / Plan
-
-check blood work for autoimmune diseases
-consider transfer to [facility] for further evaluation at [facility]
-vitamin B12 264, continue B12 supplementation
-check echo
Neuro Assessment/Plan
Assessment
55 year old male with a medical history of lumbar spinal stenosis (due to vertebral disc herniations, status post spinal fusion at age 19) who presented with progressive weakness in his upper and lower extremities over the past few months which is
now limiting his ability to ambulate.
brain MRI imgs rev'd, normal
MRI c-spine report rev'd mild degenerative changes that do not explain his quadriparesis
EMG showing Inflammatory or toxic/necrotic myopathy.
The abnormalities could be seen in polymyositis. Inclusion body myositis could also cause the abnormalities, however, there is sparing of the hand intrinsic musculature which would typically be involved in inclusion body myositis.
Labs: Vitamin B12 264, CRP<5, CK 477
Plan
Impression: progressive weakness of upper and lower extremities now limiting ambulation most likely due to myositis indicated by EMG
-check blood work for autoimmune diseases
-consider transfer to [facility] clinic for further evaluation at [facility]
-vitamin B12 264, continue B12 supplementation
-check echo
All questions encouraged and answered, plan of care discussed with Dr. Crespo and patient
Subjective/Objective
Subjective Data
Date of Service: May 29, 2025
No acute overnight events. No new neurologic complaints today.
Objective Data
Vital Signs
Temp Pulse Resp BP Pulse Ox
97.8 F 61 16 136/87 100
05/29/25 07:05 05/29/25 07:05 05/29/25 07:05 05/29/25 07:05 05/29/25 07:05
Lab Results
05/28/25 06:57
05/29/25 06:33
Sodium 139 mmol/L (135-145) 05/29/25 06:33
Potassium 3.9 mmol/L (3.5-5.1) 05/29/25 06:33
BUN 10 mg/dl (9-20) 05/29/25 06:33
Glucose 112 mg/dl (70-99) H 05/29/25 06:33
Calcium 9.5 mg/dl (8.4-10.2) 05/29/25 06:33
Phosphorus 3.8 mg/dl (2.5-4.5) 05/28/25 06:57
Vitamin B12 Cancelled 05/28/25 08:31
Patient Allergies
amoxicillin Allergy (Verified 05/26/25 14:18)
Anaphylaxis
Penicillins Allergy (Verified 05/26/25 14:18)
Anaphylaxis
povidone-iodine (From Betadine) Allergy (Verified 05/26/25 14:18)
Rash
Physical Exam
-
General: No Apparent Distress and Comfortable
HEENT: Normocephalic, Atraumatic and Anicteric
Neck: Full Range of Motion
Respiratory: No Dyspnea
Cardiac: No JVD
GI: Non-distended
Skin: Unremarkable
Extremities: No Clubbing, No Cyanosis and Edema +1 (b/l LEs)
Psych: Unremarkable
Extended Neurological Exam
Mood & Affect: Mood Unremarkable
Attention Span & Concentration: Awake, Alert, Interactive and No Difficulty with 2 Step Request
Memory: Unremarkable
Tremor: Hand Tremor Absent and Head Tremor Absent
Involuntary Movement: None
Speech: Quality Unremarkable, Quantity Unremarkable and Rate of Production Unremarkable
Cranial Nerve VII: Facial Symmetry: Normal Facial Symmetry
Cranial Nerve VIII: Hearing: Unremarkable Hearing to Normal Conversational Volume
Muscle Strength, Overall: Reduced Bilaterally (LLE 2/5 RLE 2/5, b/l foot drop)
Pronator Drift: No Drift in Upper Extremities
Coordination: Reaches for Objects without Difficulty
Data Reviewed
-
CT Head: Report Reviewed and Image Reviewed
MRI Head: Report Reviewed and Image Reviewed
MRI Cervical Spine: Report Reviewed and Image Reviewed
Labs: Report Reviewed
EMG: Report Reviewed
Reviewed with: Physician and Patient
Old Records: Summarized
--- NOTE | 2025-05-29 11:57 | W.PN.HOSP.TC ---
Today's Communication/Plan
-
Consult hematology
Assessment / Plan
Assessment / Plan
Mr. Colilns is a 55-year-old male with a medical history of lumbar spinal stenosis (due to vertebral disc herniations, status post spinal fusion at age 19) who presented with progressive weakness in his upper and lower extremities over the past few
months which is now limiting his ability to ambulate. He had previously been able to ambulate with the assistance of a cane or walker. However, recently he has had to move about his home by crawling and now his arms have become so weak he is
unable even to do that which is why he has presented for medical evaluation. He does not follow-up with any physicians on a regular basis.
Generalized weakness secondary to muscle weakness and atrophy
Clinical concern for neuromuscular disease
- Appears acute on chronic as he had some residual lower extremity weakness following his spinal fusion at age 19, however has worsened over the last few months and is now affecting his arms as well
- No demyelinating disease seen on brain and C-spine MRI, does show C5-6 uncovertebral/facet disease contributing to minimal spinal canal and moderate neuroforaminal stenosis
- Does have mildly elevated CK
- EMG
Inflammatory or toxic/necrotic myopathy.
The abnormalities could be seen in polymyositis. Inclusion body myositis could also cause the abnormalities, however, there is sparing of the hand intrinsic musculature which would typically be involved in inclusion body myositis.
- Consult rheumatology and if no rheumatology services available will transfer to [facility]
- To be evaluated by PT/OT
- Appreciate neurology input
Elevated CK: Suspect secondary to some form of myositis
- Mild to moderately elevated at 477
- Does not meet criteria for rhabdomyolysis although this may be a smoldering case due to neuromuscular pathology
- No renal dysfunction
- ESR and CRP negative
Hyperbilirubinemia:
- Elevated and direct suspicious for Gilbert's
- No abdominal symptoms
- Appears to be an isolated hyperbilirubinemia
- Transaminases and alk phos within normal limits
Hypertension:
- Not on antihypertensive medications at home although does not follow-up regularly with physicians
- Will start him on low-dose losartan especially considering proteinuria
- Monitor, adjust regimen as needed
DVT prophylaxis: Lovenox
CODE STATUS: Full code
Discussed with neurology
Discussed with mom at bedside
Total time spent on today's encounter was 52 minutes which included time spent in counseling the patient/family regarding diagnosis and treatment plan as listed above, goals of care, and symptom management. Case was discussed with nursing staff,
specialists, and care coordinators/case management. All labs and imaging personally reviewed by me. Remainder the time spent in detailed review of previous records, lab data, imaging, and other medical provider documentation.
Anticipated Discharge: > 48 hours
Subjective/Interval History
-
Date of Service: May 29, 2025
No new symptoms
Continued muscle weakness
Tolerating diet without dysphagia
No urinary or bowel disturbances
Objective Data
-
Labs:
Laboratory Results
05/29/25
06:33
Sodium 139
Potassium 3.9
Chloride 108 H
Carbon Dioxide 24
BUN 10
Creatinine 0.3 L
Glucose 112 H
Calcium 9.5
Vital Signs:
Vital Signs
Temp Pulse Resp BP Pulse Ox
97.8 F 61 16 136/87 100
05/29/25 07:05 05/29/25 07:05 05/29/25 07:05 05/29/25 07:05 05/29/25 07:05
I&O
05/28/25 05/29/25 05/30/25
06:59 06:59 06:59
Intake Total 8 / 2088 1680 / 1680
Output Total 1725 / 1725 975 / 975
Balance 363 / 363 705 / 705
Physical Exam
-
General: Comfortable
Respiratory: Non Labored Respirations; Negative Accessory Resp Muscle Use
Cardiac: Regular Rhythm and S1/S2
GI: Soft
Neuro: AO x 3; Negative No Motor Deficits (Strength in limbs as yesterday)
Psych: Calm
Data Reviewed
-
Labs: Labs Reviewed by me
[2025-05-29 15:30] VITALS: BP 154/101
[2025-05-29] MEDS: LOVENOX 40 MG SC (18:05)
[2025-05-29 23:10] VITALS: BP 168/95
[2025-05-30 02:30] LABS: ANA, IgG Reflex to HEp-2 None Detected (None Detected)
[2025-05-30 07:27] VITALS: BP 139/99
[2025-05-30 07:54] LABS: Blood Urea Nitrogen 12 mg/dl (9-20); Calcium 8.9 mg/dl (8.4-10.2); Carbon Dioxide 25 mmol/L (22-30); Chloride 107 mmol/L (98-107); Estimated Creatinine Clearance > 125 ml/min; Glucose 106 mg/dl (70-99); Potassium 4.2 mmol/L (3.5-5.1); Sodium 139 mmol/L (135-145); eGFR > 60.00
[2025-05-30] MEDS: COZAAR 25 MG PO (09:18)
[2025-05-30] MEDS: VITAMIN B-12 1000 MCG PO (09:18)
--- NOTE | 2025-05-30 10:07 | W.PN.HOSP.TC ---
Today's Communication/Plan
-
Transfer to [place] when bed available
Assessment / Plan
Assessment / Plan
Mr. Collins is a 55-year-old male with a medical history of lumbar spinal stenosis (due to vertebral disc herniations, status post spinal fusion at age 19) who presented with progressive weakness in his upper and lower extremities over the past few
months which is now limiting his ability to ambulate. He had previously been able to ambulate with the assistance of a cane or walker. However, recently he has had to move about his home by crawling and now his arms have become so weak he is
unable even to do that which is why he has presented for medical evaluation. He does not follow-up with any physicians on a regular basis.
Generalized weakness secondary to muscle weakness and atrophy
- Appears acute on chronic as he had some residual lower extremity weakness following his spinal fusion at age 19, however has worsened over the last few months and is now affecting his arms as well
- No demyelinating disease seen on brain and C-spine MRI, does show C5-6 uncovertebral/facet disease contributing to minimal spinal canal and moderate neuroforaminal stenosis. Appreciate neurology input
- Does have mildly elevated CK
- EMG
Inflammatory or toxic/necrotic myopathy.
The abnormalities could be seen in polymyositis. Inclusion body myositis could also cause the abnormalities, however, there is sparing of the hand intrinsic musculature which would typically be involved in inclusion body myositis.
- Discussed with on-call rheumatology who said they do not come into the hospital anymore.
-Case was discussed with medicine and rheumatology at [facility] who accepted the patient. They requested that a surgical biopsy be performed while waiting for the bed and possible send the biopsy specimen to [place]. General surgery is happy
to do the biopsy. Spoke with our pathology director who is going to get in touch with [facility] regarding the logistics of sending the specimen there. if the specimen cannot be transported I would favor patient getting biopsy down at [place]
to avoid unnecessary second biopsy.
-Continue PT/OT
Elevated CK: Suspect secondary to some form of myositis
- Mild to moderately elevated at 477
- Does not meet criteria for rhabdomyolysis although this may be a smoldering case due to neuromuscular pathology
- No renal dysfunction
- ESR and CRP negative
Hyperbilirubinemia:
- Elevated and direct suspicious for Gilbert's
- No abdominal symptoms
- Appears to be an isolated hyperbilirubinemia
- Transaminases and alk phos within normal limits
Hypertension:
- Not on antihypertensive medications at home although does not follow-up regularly with physicians
- started on low-dose losartan especially considering proteinuria
- Monitor, adjust regimen as needed
DVT prophylaxis: Lovenox
CODE STATUS: Full code
Anticipated Discharge: Today
Subjective/Interval History
-
Date of Service: May 30, 2025
No new complaints. Continued muscle weakness. Tolerating diet.
Objective Data
-
Labs:
Laboratory Results
05/30/25
06:36
Sodium 139
Potassium 4.2
Chloride 107
Carbon Dioxide 25
BUN 12
Creatinine 0.4 L
Glucose 106 H
Calcium 8.9
Vital Signs:
Vital Signs
Temp Pulse Resp BP Pulse Ox
97.9 F 78 18 139/99 100
05/30/25 07:27 05/30/25 09:18 05/30/25 07:27 05/30/25 09:18 05/30/25 07:27
I&O
05/29/25 05/30/25 05/31/25
06:59 06:59 06:59
Intake Total 1680 / 1680 1440 / 1440
Output Total 975 / 975 1175 / 1175
Balance 705 / 705 265 / 265
Physical Exam
-
General: No Apparent Distress
Respiratory: Non Labored Respirations; Negative Accessory Resp Muscle Use
Cardiac: Regular Rhythm and S1/S2
Neuro: AO x 3
Psych: Calm; Negative Confused
Data Reviewed
-
Labs: Labs Reviewed by me
[2025-05-30 14:32] VITALS: BP 152/92; PULSE 66; O2SAT 98
--- NOTE | 2025-05-30 14:41 | CM ---
CM following re: discharge planning.
Reviewed pt's chart, met with pt.
Per MD pt will be transferred to [facility] when bd available.
D/C plan: transfer to [facility].
[2025-05-30 15:55] VITALS: BP 142/84
--- NOTE | 2025-05-30 16:33 | CON.MD ---
Addendum entered and electronically signed by Matty Lema MD 05/30/25 16:33:
Eyes: Conjunctiva/Lids: normal Pupils: Right eye pupil equal and reactive. Left eye with cloudiness, pupil round.�
Original Note:
Documented by User: Suellen Houser MD, Resident 05/30/25 11:07
Consultation - Medical
-
Referring Provider:��
Chief Complaint:��Weakness, chronic muscle loss
�
History of Present Illness:��55-year-old male with a medical history of lumbar spinal stenosis (due to vertebral disc herniations, status post spinal fusion at age 19) who presented with progressive weakness in his upper and lower extremities over
the past few months which is now limiting his ability to ambulate. He had previously been able to ambulate with the assistance of a cane or walker. However, recently he has had to move about his home by crawling and now his arms have become so
weak he is unable even to do that which is why he has presented for medical evaluation.
�
Past Medical History:�Spinal stenosis due to vertebral disc herniations
Procedure History:�Spinal fusion
Family History:��Not pertinent
�
Social History:�
Functional Level Premorbidly: Independent with all activities�
Functional Level Currently:��
PT: Significant weakness in bilateral lower extremities and bilateral upper extremities. Max assist x 2 for bed mobility and transfers.
� Recommends acute versus SNF pending progress
Patient desires intense physical therapy of 3 hours a day or more. He wants to return to his independent baseline, including returning to his job and be able to take care of his 12-year-old daughter.
Tobacco: Denies�
Alcohol: Denies�
Drug use: Denies�
�
Lives with:��Alone
24-hour assistance available:�Mother came from [facility] to help him recently
Number of floors:�Multilevel. He stays in the bottom level, having adapted his home to his weakness
Potential First floor set up:�Yes
Driving:�Yes
Occupation:��
��
�
Allergies:��
�
Allergy/AdvReac Type Severity Reaction Status Date / Time
amoxicillin Allergy Anaphylaxis Verified 05/26/25 14:18
Penicillins Allergy Anaphylaxis Verified 05/26/25 14:18
povidone-iodine (From Allergy Rash Verified 05/26/25 14:18
Betadine)
Review of Systems:�
Constitutional: Restless from sitting in bed all day at the hospital; is used to do his around his house
Eye: (x) Normal _�
Ear/Nose/Throat: (x) Normal _�
Respiratory: (x) Normal _�
Cardiovascular: (x) Normal _�
Gastrointestinal: (x) Normal _�
Genitourinary: (x) Normal _�
Musculoskeletal: (x) Normal _�
Integumentary: (x) Normal _�
Neurologic: (x) Normal _�
Psychiatric: (x) Normal _�
Endocrine: (x) Normal _�
Hematologic/Lymphatic: (x) Normal _�
Allergic/Immunologic: (x) Normal _�
�
Medications:�
�
Generic Name Dose Route Start Last Admin
Trade Name Freq PRN Reason Stop Dose Admin
Acetaminophen 650 mg 05/27/25 03:09
Acetaminophen 325 Mg Tablet PO 06/24/25 03:08
Q4HPRN PRN
mild pain/MARQUES/temp> 100.4F
Bisacodyl 10 mg 05/27/25 03:09
Bisacodyl 10 Mg Rectal Suppository RECTAL 06/24/25 03:08
[id number] PRN
constipation
Cyanocobalamin 1,000 mcg 05/30/25 08:00
Cyanocobalamin (Vitamin B-12) 500 Mcg Tablet PO 06/26/25 07:59
DAILY LAVELLE
Enoxaparin Sodium 40 mg 05/27/25 18:00 05/28/25 18:21
Enoxaparin Sodium 40 Mg/0.4 Ml Syringe SC 06/24/25 17:59 40 mg
QPM LAVELLE Administration
Losartan Potassium 25 mg 05/27/25 13:00 05/29/25 07:35
Losartan 25 Mg Tablet PO 06/24/25 12:59 25 mg
DAILY LAVELLE Administration
Ondansetron HCl 4 mg 05/27/25 03:09
Ondansetron 4 Mg/2 Ml Vial IV 06/24/25 03:08
Q6HPRN PRN
nausea and vomiting
Polyethylene Glycol 17 grams 05/27/25 03:09
Polyethylene Glycol Powder 17 Grams Packet PO 06/24/25 03:08
DAILYPRN PRN
constipation
Senna/Docusate Sodium 1 tablet 05/27/25 03:09
Docusate W/Senna (Kelsie-Colace) Tablet PO 06/24/25 03:08
BIDPRN PRN
constipation
Sodium Chloride 0 flush 05/29/25 09:00
Sodium Chloride 0.9% (Flush) Syringe IV 06/26/25 08:59
PER PROTOCOL LAVELLE
Vitals:�
�
Temp Pulse Resp BP Pulse Ox
97.8 F 61 16 136/87 100
05/29/25 07:05 05/29/25 07:05 05/29/25 07:05 05/29/25 07:05 05/29/25 07:05
Height 5 ft 7 in
Actual Weight 82.735 kg
Body Mass Index (BMI) 28.6
Physical Exam:�
General Appearance/Observation: Well-developed, well-nourished individual in no apparent distress.�
Pain/Comfort Assessment: Denies��
Mood/Affect: Appropriate�
�
Integumentary/Operative Site:�
�� Pressure Ulcer Evaluation: absent over heels.�
�� Other Type of Wound: absent�
�
Eyes: Conjunctiva/Lids: normal Pupils: pupils equal round and reactive to light and Accommodation�
Ears/Nose/Throat: oral mucosa moist,� throat clear. Lips/Teeth/Gums: normal�
Neck: No muscle spasm or tenderness�
Cardiovascular: Heart: regular, no murmur�
Pulses: dorsalis pedis 2+ bilaterally�
Respiratory: Respiratory Effort/Chest Expansion: normal Auscultation: Clear to auscultation bilaterally�
Gastrointestinal: abdomen not tender, no distension, normal abdominal bowel sounds�
Nasogastric tube _ Gastrostomy tube _ Jejunostomy tube _ Ostomy�
Genitourinary: No Urena�
Rectal Exam: Deferred�
Extremities: Edema: b/l pedal edema 1+ Cyanosis: None Trophic changes: Right knee anteriorly has white and erythematous scales. Patient states he will sometimes be on his knees to get around at home, to accommodate his lower extremity
weakness/weakness when walking. He denies a history of psoriasis.�
�
�
Neurology Exam:�
Orientation: Alert, Oriented to self, Time, Place�
Memory: Intact immediately and at 3 minutes�
Higher cortical function�
Repetition: Intact�
Comprehension: Intact�
Two step command: Intact�
Naming: Intact�
�
Cranial Nerves:�
�� CNII: Pupillary light reflex: Intact��� Visual Field: Intact�
�� CN III, IV, : Extraocular muscles: Intact��
�� CN V: Facial Sensation at Forehead: Intact, Maxilla: Intact, Mandible: Intact �
�� CN VII: Facial movement: Symmetric�
�� CN VIII: Hearing: Normal�
�� CN IX/X: Speech & swallow: Normal, Position of Uvula: Midline�
�� CN XI: Shoulder shrug: Symmetric�
�� CN XII: Tongue protrusion: Midline�
�
Sensory:�
�� Light touch: Intact in bilateral upper and lower extremities�
�� Proprioception:�Intact in bilateral upper and lower extremities�
�
Reflexes:�
�� Biceps: 2+ bilaterally�
�� Brachioradialis: 2+ bilaterally�
�� Triceps: 2+ bilaterally�
�� Patellar: 2+ bilaterally�
�� Achilles: 2+ bilaterally�
�� Babinski: Down going bilaterally�
�� Clonus: None�
�� Serena: Negative bilaterally�
Cerebellar: Dysmetria/Ataxia: None�
�
Musculoskeletal:�
�
Motor: (Manual muscle scale 0-5)�
Muscle� SA� EF� WE� EE� FF� FA� HF� KE� DF� EHL� PF�
Right��� 3-� 4-� 5� 4-� 5� 5� 1� 1� 1� 1� 2�
Left� 3-� 4� 5� 4� 5� 5� 1� 1� 1� 1� 2�
�
Tone: hypotonic most in lower extremities. Muscle wasting in all extremities: calves, thighs, upper arms, forearms
Range of Motion: Passively within normal limits in all extremities�
�
Lab Results�
��
05/28/25 06:57
05/29/25 06:33
WBC 6.4 10^3/uL (4.8-10.8) 05/28/25 06:57
Hgb 14.2 g/dL (13.0-18.0) 05/28/25 06:57
Hct 42.4 % (39.0-52.0) 05/28/25 06:57
MCV 83.3 fL (80.0-94.0) 05/28/25 06:57
Plt Count 241 10^3/uL (130-400) 05/28/25 06:57
ESR Cancelled 05/28/25 08:31
Sodium 139 mmol/L (135-145) 05/29/25 06:33
Potassium 3.9 mmol/L (3.5-5.1) 05/29/25 06:33
Chloride 108 mmol/L (98-107) H 05/29/25 06:33
Carbon Dioxide 24 mmol/L (22-30) 05/29/25 06:33
BUN 10 mg/dl (9-20) 05/29/25 06:33
Creatinine 0.3 mg/dL (0.7-1.3) L 05/29/25 06:33
eGFR > 60.00 05/29/25 06:33
Glucose 112 mg/dl (70-99) H 05/29/25 06:33
Calcium 9.5 mg/dl (8.4-10.2) 05/29/25 06:33
Phosphorus 3.8 mg/dl (2.5-4.5) 05/28/25 06:57
Magnesium 2.0 mg/dl (1.6-2.3) 05/28/25 06:57
Total Bilirubin 2.9 mg/dl (0.2-1.3) H 05/28/25 06:57
Direct Bilirubin 0.2 mg/dl (0.0-0.4) 05/28/25 06:57
AST 21 U/L (17-59) 05/28/25 06:57
ALT 27 U/L (0-50) 05/28/25 06:57
Alkaline Phosphatase 72 U/L (38-126) 05/28/25 06:57
C-Reactive Protein Cancelled 05/28/25 08:31
Total Protein 6.1 g/dl (6.3-8.2) L 05/28/25 06:57
Albumin 3.8 g/dl (3.5-5.0) 05/28/25 06:57
Diagnostic Results: as per HPI�
�
Assessment�
José Miguel Collins is a 55-year-old male with a PMH notable for lumbar stenosis status post spinal fusion as 19 years old who presents with an exacerbation of chronic weakness. Weakness started about 5 to 6 years ago, he has started physical therapy
but COVID-19 interrupted his program. Over the last several years, he has accommodated at home such as by crawling. He came to the ED because he could not get out of his car, which was unusual for him. After EMG/NCS, considering polymyositis
versus inclusion body myositis.
He is highly motivated to do physical therapy to return to his independent baseline and wants to do 3+ hours of therapy per day. He does stretches and exercises with equipment he brought from home when he is not working with PT.
Plan��
PM&R PT/OT to increase independence with ADLs, improve balance, coordination, endurance, strength, mobility, community reintegration, decreased burden of care on others and family education.�
Weakness: pending investigation of etiology (muscle biopsy anticipated)
- Would benefit from physical therapy / training on positioning and energy conservation
Peripheral polyneuropathy: Patient with a stocking and glove polyneuropathy distribution pattern. There are many potential etiologies of this type of neuropathy. Suggest getting an EMG/nerve conduction study which can be done inpatient or if
necessary as an outpatient. This will help limit the differential diagnosis. Common etiologies include diabetes, alcohol use, B12, thyroid disorder, autoimmune concerns. It is reasonable to check a B12, TSH, and hemoglobin A1c to start.� Patient at
high risk of falling with subsequent significant neuropathy.�
�
HTN: continue losartan 25mg PO daily, monitor closely�
�
DM II: Accu-Cheks, insulin sliding scale, metformin, aspart, lantus.��
�����������
Bilateral lower extremity edema: Consider TEDS as able. Increased fluid will cause more force requirement to move lower extremities which requires more strength and increases fatigue.�
�
Skin: monitor for pressure sores/rashes/lesions.�
Pain: acetaminophen or oxycodone as needed.�
Bowel: Colace and Senna, PRN bisacodyl.�
Bladder: Time void, PVRs, PRN straight cath.�
GI Prophylaxis: Pantoprazole�
DVT Prophylaxis: Enoxaparin 40 mg SC qPM
Pulmonary: Incentive spirometry�
Safety: Continue to reinforce assistance with all transfers.�
Code Status:� Full code
Dispo (date/plan/equipment needs): Acute rehab.� Social history reviewed.�
�
Functional and Medical Goals: Modified Independent with ADL�s, ambulation, transfers�
�
SUMMARY�
Things that must be addressed in Hospital prior to discharge:�
Blood pressure must be less than 180 systolic and 100 diastolic for 24 hours before being stable for transfer to SNF/acute rehab.�
Please give blood pressure parameters.�
Please comment on ROM, bracing and weight bearing precautions.�
Please comment on dvt chemoprophylaxis restrictions.�
�
Summary of recommendations:�
- Discharge Destination: Acute rehab�to optimize positioning, energy conservation. Would benefit from appropriate home equipment to accomodate weakness
�
Will continue to follow patient.�
Thank you for allowing me to care for your patient. Please contact me with any questions or concerns.�
�
This note was dictated using a voice recognition system. Please excuse any typographical errors from front end assistant. If you believe there are any discrepancies, please notify our office.�
�

Documented by User: Matty Lema MD 05/30/25 13:49
Consultation - Medical
-
Chief Complaint:��Weakness, chronic muscle loss
�
History of Present Illness: 55-year-old right-handed male with PMH (lumbar spinal stenosis from vertebral disc herniations, status post spinal fusion at age 19) presented to [facility] on 05/26/25 with progressive weakness in his upper and
lower extremities over the past few months which is now limiting his ability to ambulate. He had previously been able to ambulate with the assistance of a cane or walker. However, recently he has had to move about his home by crawling and now his
arms have become so weak he is unable even to do. That which is why he has presented for medical evaluation. No recent illnesses prior to decline.
�
Past Medical History:�Spinal stenosis due to vertebral disc herniations
Procedure History:�Spinal fusion
Family History:�Mother has polymyalgia rheumatica and other autoimmune disease with
�
Social History:�
Functional Level Premorbidly: Independent with all activities�
Functional Level Currently:�OT evaluation pending.
PT: Significant weakness in bilateral lower extremities and bilateral upper extremities. Max assist x 2 for bed mobility and transfers.
� Recommends acute versus SNF pending progress
Patient desires intense physical therapy of 3 hours a day or more. He wants to return to his independent baseline, including returning to his job and be able to take care of his 12-year-old daughter.
Tobacco: Denies�
Alcohol: Denies�
Drug use: Denies�
�
Lives with:��Alone
24-hour assistance available:�Mother came from [facility] to help him recently
Number of floors:�Multilevel. He stays in the bottom level, having adapted his home to his weakness
Potential First floor set up:�Yes
Driving:�Yes
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
��
�
Allergies:��
�
Allergy/AdvReac Type Severity Reaction Status Date / Time
amoxicillin Allergy Anaphylaxis Verified 05/26/25 14:18
Penicillins Allergy Anaphylaxis Verified 05/26/25 14:18
povidone-iodine (From Allergy Rash Verified 05/26/25 14:18
Betadine)
Review of Systems:�
Constitutional: Restless from sitting in bed all day at the hospital; is used to do his around his house
Eye: (x) Normal _no vision concerns
Ear/Nose/Throat: (x) Normal _no dysphagia
Respiratory: (x) Normal _�
Cardiovascular: (x) Normal _�
Gastrointestinal: (x) Normal _no constipation or incontinence
Genitourinary: (x) Normal _no dysuria or incontinence
Musculoskeletal: (x) abNormal _generalized weakness as noted
Integumentary: (x) Normal _�
Neurologic: (x) Normal _no numbness and tingling except for if sitting in a position for too long then moves and symptoms resolve
Psychiatric: (x) Normal _�
Endocrine: (x) Normal _�
Hematologic/Lymphatic: (x) Normal _�
Allergic/Immunologic: (x) Normal _�
�
Medications:�
�
Generic Name Dose Route Start Last Admin
Trade Name Freq PRN Reason Stop Dose Admin
Acetaminophen 650 mg 05/27/25 03:09
Acetaminophen 325 Mg Tablet PO 06/24/25 03:08
Q4HPRN PRN
mild pain/MARQUES/temp> 100.4F
Bisacodyl 10 mg 05/27/25 03:09
Bisacodyl 10 Mg Rectal Suppository RECTAL 06/24/25 03:08
[id number] PRN
constipation
Cyanocobalamin 1,000 mcg 05/30/25 08:00
Cyanocobalamin (Vitamin B-12) 500 Mcg Tablet PO 06/26/25 07:59
DAILY LAVELLE
Enoxaparin Sodium 40 mg 05/27/25 18:00 05/28/25 18:21
Enoxaparin Sodium 40 Mg/0.4 Ml Syringe SC 06/24/25 17:59 40 mg
QPM LAVELLE Administration
Losartan Potassium 25 mg 05/27/25 13:00 05/29/25 07:35
Losartan 25 Mg Tablet PO 06/24/25 12:59 25 mg
DAILY LAVELLE Administration
Ondansetron HCl 4 mg 05/27/25 03:09
Ondansetron 4 Mg/2 Ml Vial IV 06/24/25 03:08
Q6HPRN PRN
nausea and vomiting
Polyethylene Glycol 17 grams 05/27/25 03:09
Polyethylene Glycol Powder 17 Grams Packet PO 06/24/25 03:08
DAILYPRN PRN
constipation
Senna/Docusate Sodium 1 tablet 05/27/25 03:09
Docusate W/Senna (Kelsie-Colace) Tablet PO 06/24/25 03:08
BIDPRN PRN
constipation
Sodium Chloride 0 flush 05/29/25 09:00
Sodium Chloride 0.9% (Flush) Syringe IV 06/26/25 08:59
PER PROTOCOL LAVELLE
Vitals:�
�
Temp Pulse Resp BP Pulse Ox
97.8 F 61 16 136/87 100
05/29/25 07:05 05/29/25 07:05 05/29/25 07:05 05/29/25 07:05 05/29/25 07:05
Height 5 ft 7 in
Actual Weight 82.735 kg
Body Mass Index (BMI) 28.6
Physical Exam:�
General Appearance/Observation: Well-developed, well-nourished male with generalized muscle atrophy in no apparent distress.�
Pain/Comfort Assessment: Denies��
Mood/Affect: Appropriate�
�
Integumentary/Operative Site:� Right knee anteriorly has white and erythematous scales. Mild irritation over the left knee. None over extensor surfaces of arms. Patient states he will sometimes be on his knees to get around at home, to
accommodate his lower extremity weakness/weakness when walking. He denies a history of psoriasis.�
�� Pressure Ulcer Evaluation: absent over heels.�
�
Eyes: Conjunctiva/Lids: normal Pupils: pupils equal round and reactive to light and Accommodation�
Ears/Nose/Throat: oral mucosa moist,� throat clear. Lips/Teeth/Gums: normal�
Neck: No muscle spasm or tenderness�
Cardiovascular: Heart: regular, no murmur�
Pulses: dorsalis pedis 2+ bilaterally�
Respiratory: Respiratory Effort/Chest Expansion: normal Auscultation: Clear to auscultation bilaterally�
Gastrointestinal: abdomen not tender, no distension, normal abdominal bowel sounds�
Genitourinary: No Urena�
Rectal Exam: Deferred�
Extremities: Edema: b/l pedal edema 1+ Cyanosis: None Trophic changes: Yes bilateral shins
�
�
Neurology Exam:�
Orientation: Alert, Oriented to self, Time, Place�
Memory: Intact for recent medical concerns
Comprehension: Intact�
Two step command: Intact�
�
Cranial Nerves:�
�� CNII: Pupillary light reflex: Intact��� Visual Field: Intact�
�� CN III, IV, : Extraocular muscles: Intact��
�� CN V: Facial Sensation at Forehead: Intact, Maxilla: Intact, Mandible: Intact �
�� CN VII: Facial movement: Symmetric�
�� CN VIII: Hearing: Normal�
�� CN IX/X: Speech & swallow: Normal, Position of Uvula: Midline�
�� CN XI: Shoulder shrug: Symmetric�
�� CN XII: Tongue protrusion: Midline�
�
Sensory:�
�� Light touch: Intact in bilateral upper and lower extremities�
�� Proprioception:�Intact in bilateral upper and lower extremities�
�
Reflexes:�
�� Biceps: 0 bilaterally�
�� Brachioradialis: 0 bilaterally�
�� Triceps: 0 bilaterally�
�� Patellar: 0 bilaterally�
�� Achilles: 0 bilaterally�
�� Babinski: Down going bilaterally�
�� Clonus: None�
�� Serena: Negative bilaterally�
Cerebellar: Dysmetria/Ataxia: None�
�
Musculoskeletal:�Motor: (Manual muscle scale 0-5)�
Muscle� SA� EF� WE� EE� FF� FA� HF� KE� DF� EHL� PF�
Right��� 1� 2� 4� 3+� 4� 4� 1� 1� 1� 1� 2�
Left� 1� 3+ 4� 4� 3+� 3� 1� 1� 1� 1� 2�
�
Tone: hypotonic most in lower extremities. Muscle wasting in all extremities: calves, thighs, upper arms, forearms
Range of Motion: Limited range of motion bilateral shoulders, ankle dorsiflexion
�
Lab Results�
��
05/28/25 06:57
05/29/25 06:33
WBC 6.4 10^3/uL (4.8-10.8) 05/28/25 06:57
Hgb 14.2 g/dL (13.0-18.0) 05/28/25 06:57
Hct 42.4 % (39.0-52.0) 05/28/25 06:57
MCV 83.3 fL (80.0-94.0) 05/28/25 06:57
Plt Count 241 10^3/uL (130-400) 05/28/25 06:57
ESR Cancelled 05/28/25 08:31
Sodium 139 mmol/L (135-145) 05/29/25 06:33
Potassium 3.9 mmol/L (3.5-5.1) 05/29/25 06:33
Chloride 108 mmol/L (98-107) H 05/29/25 06:33
Carbon Dioxide 24 mmol/L (22-30) 05/29/25 06:33
BUN 10 mg/dl (9-20) 05/29/25 06:33
Creatinine 0.3 mg/dL (0.7-1.3) L 05/29/25 06:33
eGFR > 60.00 05/29/25 06:33
Glucose 112 mg/dl (70-99) H 05/29/25 06:33
Calcium 9.5 mg/dl (8.4-10.2) 05/29/25 06:33
Phosphorus 3.8 mg/dl (2.5-4.5) 05/28/25 06:57
Magnesium 2.0 mg/dl (1.6-2.3) 05/28/25 06:57
Total Bilirubin 2.9 mg/dl (0.2-1.3) H 05/28/25 06:57
Direct Bilirubin 0.2 mg/dl (0.0-0.4) 05/28/25 06:57
AST 21 U/L (17-59) 05/28/25 06:57
ALT 27 U/L (0-50) 05/28/25 06:57
Alkaline Phosphatase 72 U/L (38-126) 05/28/25 06:57
C-Reactive Protein Cancelled 05/28/25 08:31
Total Protein 6.1 g/dl (6.3-8.2) L 05/28/25 06:57
Albumin 3.8 g/dl (3.5-5.0) 05/28/25 06:57
Diagnostic Results: as per HPI�
�
Assessment�
55 y/o right handed M PMH (lumbar stenosis S/P spinal fusion) with an exacerbation of chronic weakness with EMG/NCS concerning for polymyositis versus inclusion body myositis resulting in ADL and ambulatory dysfunction.
Plan��
PM&R PT/OT to increase independence with ADLs, improve balance, coordination, endurance, strength, mobility, community reintegration, decreased burden of care on others and family education.�
Weakness: EMG/nerve conduction study concerning for polymyositis versus inclusion body myositis (muscle biopsy anticipated)
- Would benefit from physical therapy / training to help with strengthening of muscles, safe techniques for mobility, proper equipment for safety, and energy conservation.
HTN: losartan 25 mg PO daily, monitor closely�
Bilateral lower extremity edema: Consider TEDS as able. Increased fluid will cause more force requirement to move lower extremities which requires more strength and increases fatigue.�
�
Skin: monitor for pressure sores/rashes/lesions.�
Pain: acetaminophen as needed.�
Bowel: PRN bisacodyl or MiraLAX.�
Bladder: Denies any urinary complaints. Could consider postvoid residual to ensure adequate emptying.
DVT Prophylaxis: Mechanical and enoxaparin 40 mg SC qPM
Pulmonary: Incentive spirometry�
Safety: Continue to reinforce assistance with all transfers.�
Code Status:� Full code
Dispo (date/plan/equipment needs): Acute rehab.� Social history reviewed.�
Functional and Medical Goals: Modified Independent with ADL�s, ambulation, transfers�
- Discharge Destination: Acute rehab to help with strengthening of muscles, safe techniques for mobility, proper equipment for safety, and energy conservation.
Attending Statement: I performed a history and examined the patient today.� I reviewed the care plan with therapy, nursing, and the resident.� I agree with the history and ROS above as modified.� The physical exam and plan documented reflects my
examination and plan.� A total of 60 minutes were spent with the patient preparing for the evaluation, obtaining history, performing examination and evaluation, counseling, data review, case management, care coordination, box order person, and EMR
documentation.�
� � � � �
Thank you for allowing me to care for your patient. Please contact me with any questions or concerns.�
Consultation
-
Date/Time Consultation Performed: 05/30/25
Requesting Provider: Dr. Gabriele Monge
Performing Provider: Dr. Suellen Houser, Dr. Matty Lema
Reason for Consultation: Weakness, difficulty walking
[2025-05-30] MEDS: LOVENOX 40 MG SC (17:08)
[2025-05-30 23:17] LABS: Albumin 3.58 g/dL (3.75-5.01); SPEP IFE Reflex Not Done; Total Protein-Electrophoresis 5.9 g/dL (6.3-8.2)
[2025-05-31 07:05] VITALS: BP 140/97
[2025-05-31] MEDS: VITAMIN B-12 1000 MCG PO (09:16)
[2025-05-31] MEDS: COZAAR 25 MG PO (09:16)
--- NOTE | 2025-05-31 10:41 | W.PN.HOSP.TC ---
Today's Communication/Plan
-
DC to [facility] when bed is available
Assessment / Plan
Assessment / Plan
Mr. Collins is a 55-year-old male with a medical history of lumbar spinal stenosis (due to vertebral disc herniations, status post spinal fusion at age 19) who presented with progressive weakness in his upper and lower extremities over the past few
months which is now limiting his ability to ambulate. He had previously been able to ambulate with the assistance of a cane or walker. However, recently he has had to move about his home by crawling and now his arms have become so weak he is
unable even to do that which is why he has presented for medical evaluation. He does not follow-up with any physicians on a regular basis.
Generalized weakness secondary to muscle weakness and atrophy
- Appears acute on chronic as he had some residual lower extremity weakness following his spinal fusion at age 19, however has worsened over the last few months and is now affecting his arms as well
- No demyelinating disease seen on brain and C-spine MRI, does show C5-6 uncovertebral/facet disease contributing to minimal spinal canal and moderate neuroforaminal stenosis. Appreciate neurology input
- Does have mildly elevated CK
- EMG
Inflammatory or toxic/necrotic myopathy.
The abnormalities could be seen in polymyositis. Inclusion body myositis could also cause the abnormalities, however, there is sparing of the hand intrinsic musculature which would typically be involved in inclusion body myositis.
- Discussed with on-call rheumatology who said they do not come into the hospital anymore.
-Case was discussed with medicine and rheumatology at [facility] on 05/29 and they accepted the patient. They requested that a surgical biopsy be performed while waiting for the bed and possible send the biopsy specimen to [place]. General
surgery is happy to do the biopsy. Spoke with our pathology director who is going to get in touch with [facility] regarding the logistics of sending the specimen there. if the specimen cannot be transported I would favor patient getting
biopsy down at [place] to avoid unnecessary second biopsy.
-Continue PT/OT
Elevated CK: Suspect secondary to some form of myositis
- Mild to moderately elevated at 477
- Does not meet criteria for rhabdomyolysis although this may be a smoldering case due to neuromuscular pathology
- No renal dysfunction
- ESR and CRP negative
Hyperbilirubinemia:
- Elevated and direct suspicious for Gilbert's
- No abdominal symptoms
- Appears to be an isolated hyperbilirubinemia
- Transaminases and alk phos within normal limits
Hypertension:
- Not on antihypertensive medications at home although does not follow-up regularly with physicians
- started on low-dose losartan especially considering proteinuria
- Monitor, adjust regimen as needed
DVT prophylaxis: Lovenox
CODE STATUS: Full code
Anticipated Discharge: Today
Subjective/Interval History
-
Date of Service: May 31, 2025
No changes since yesterday. No overnight events.
Objective Data
-
Vital Signs:
Vital Signs
Temp Pulse Resp BP Pulse Ox
98.1 F 64 16 140/97 100
05/31/25 07:05 05/31/25 09:16 05/31/25 07:05 05/31/25 09:16 05/31/25 07:05
I&O
05/30/25 05/31/25 06/01/25
06:59 06:59 06:59
Intake Total 1440 / 1440 1560 / 1560
Output Total 1175 / 1175 1875 / 1875
Balance 265 / 265 -315 / -315
Physical Exam
-
General: Comfortable
Respiratory: Non Labored Respirations; Negative Accessory Resp Muscle Use
Neuro: AO x 3
Psych: Calm; Negative Confused
--- NOTE | 2025-05-31 15:04 | CM ---
CM following re: discharge planning.
Reviewed pt's chart, met with pt.
Per MD pt will be transferred to [facility] when bed available.
D/C plan: transfer to [facility].
[2025-05-31 15:05] VITALS: BP 140/95
[2025-05-31] MEDS: LOVENOX 40 MG SC (18:12)
[2025-05-31 23:06] VITALS: BP 133/82
[2025-06-01 07:09] VITALS: BP 149/91
[2025-06-01] MEDS: VITAMIN B-12 1000 MCG PO (09:30)
[2025-06-01] MEDS: COZAAR 25 MG PO (09:31)
--- NOTE | 2025-06-01 10:31 | W.PN.HOSP.TC ---
Today's Communication/Plan
-
Await tranfer to [place]
Assessment / Plan
Assessment / Plan
Mr. Collins is a 55-year-old male with a medical history of lumbar spinal stenosis (due to vertebral disc herniations, status post spinal fusion at age 19) who presented with progressive weakness in his upper and lower extremities over the past few
months which is now limiting his ability to ambulate. He had previously been able to ambulate with the assistance of a cane or walker. However, recently he has had to move about his home by crawling and now his arms have become so weak he is
unable even to do that which is why he has presented for medical evaluation. He does not follow-up with any physicians on a regular basis.
Generalized weakness secondary to muscle weakness and atrophy
- Appears acute on chronic as he had some residual lower extremity weakness following his spinal fusion at age 19, however has worsened over the last few months and is now affecting his arms as well
- No demyelinating disease seen on brain and C-spine MRI, does show C5-6 uncovertebral/facet disease contributing to minimal spinal canal and moderate neuroforaminal stenosis. Appreciate neurology input
- Does have mildly elevated CK
- EMG
Inflammatory or toxic/necrotic myopathy.
The abnormalities could be seen in polymyositis. Inclusion body myositis could also cause the abnormalities, however, there is sparing of the hand intrinsic musculature which would typically be involved in inclusion body myositis.
- Discussed with on-call rheumatology who said they do not come into the hospital anymore.
-Case was discussed with medicine and rheumatology at [facility] on 05/29 and they accepted the patient. They requested that a surgical biopsy be performed while waiting for the bed and possible send the biopsy specimen to [place]. General
surgery is happy to do the biopsy. Spoke with our pathology director who is going to get in touch with [facility] regarding the logistics of sending the specimen there. if the specimen cannot be transported I would favor patient getting
biopsy down at [place] to avoid unnecessary second biopsy.
-Continue PT/OT
Elevated CK: Suspect secondary to some form of myositis
- Mild to moderately elevated at 477
- Does not meet criteria for rhabdomyolysis although this may be a smoldering case due to neuromuscular pathology
- No renal dysfunction
- ESR and CRP negative
Hyperbilirubinemia:
- Elevated and direct suspicious for Gilbert's
- No abdominal symptoms
- Appears to be an isolated hyperbilirubinemia
- Transaminases and alk phos within normal limits
Hypertension:
- Not on antihypertensive medications at home although does not follow-up regularly with physicians
- started on low-dose losartan especially considering proteinuria
- Monitor, adjust regimen as needed
DVT prophylaxis: Lovenox
CODE STATUS: Full code
Anticipated Discharge: Today
Subjective/Interval History
-
Date of Service: June 01, 2025
No new issues. Remains with muscle weakness and inability to stand and perform activities of daily living.
No fever or chills.
No swallowing difficulty.
Objective Data
-
Vital Signs:
Vital Signs
Temp Pulse Resp BP Pulse Ox
98.1 F 61 16 149/91 100
06/01/25 07:09 06/01/25 09:31 06/01/25 07:09 06/01/25 09:31 06/01/25 07:09
I&O
05/31/25 06/01/25 06/02/25
06:59 06:59 06:59
Intake Total 1560 / 1560 1860 / 1860
Output Total 1875 / 1875 2630 / 2630
Balance -315 / -315 -770 / -770
Physical Exam
-
General: Comfortable
Respiratory: Non Labored Respirations; Negative Accessory Resp Muscle Use
Cardiac: Regular Rhythm and S1/S2
Neuro: AO x 3
Psych: Calm; Negative Confused
--- NOTE | 2025-06-01 13:22 | CM ---
CM following re: discharge planning.
Reviewed pt's chart, met with pt.
Awaiting transfer to [facility] when bed available.
D/C plan: transfer to [facility].
[2025-06-01 15:36] VITALS: BP 143/93
[2025-06-01] MEDS: LOVENOX 40 MG SC (17:56)
[2025-06-01 23:10] VITALS: BP 147/87
[2025-06-02 07:05] VITALS: BP 138/90
[2025-06-02 08:07] VITALS: BP 138/90
[2025-06-02] MEDS: COZAAR 25 MG PO (08:34)
[2025-06-02] MEDS: VITAMIN B-12 1000 MCG PO (08:35)
--- NOTE | 2025-06-02 09:41 | W.PN.HOSP.TC ---
Today's Communication/Plan
-
DC to [facility] when bed is available
Assessment / Plan
Assessment / Plan
Mr. Collins is a 55-year-old male with a medical history of lumbar spinal stenosis (due to vertebral disc herniations, status post spinal fusion at age 19) who presented with progressive weakness in his upper and lower extremities over the past few
months which is now limiting his ability to ambulate. He had previously been able to ambulate with the assistance of a cane or walker. However, recently he has had to move about his home by crawling and now his arms have become so weak he is
unable even to do that which is why he has presented for medical evaluation. He does not follow-up with any physicians on a regular basis.
Generalized weakness secondary to muscle weakness and atrophy
- Appears acute on chronic as he had some residual lower extremity weakness following his spinal fusion at age 19, however has worsened over the last few months and is now affecting his arms as well
- No demyelinating disease seen on brain and C-spine MRI, does show C5-6 uncovertebral/facet disease contributing to minimal spinal canal and moderate neuroforaminal stenosis. Appreciate neurology input
- Does have mildly elevated CK
- EMG
Inflammatory or toxic/necrotic myopathy.
The abnormalities could be seen in polymyositis. Inclusion body myositis could also cause the abnormalities, however, there is sparing of the hand intrinsic musculature which would typically be involved in inclusion body myositis.
- Discussed with on-call rheumatology who said they do not come into the hospital anymore.
-Case was discussed with medicine and rheumatology at [facility] on 05/29 and they accepted the patient. They requested that a surgical biopsy be performed while waiting for the bed and possible send the biopsy specimen to [place]. General
surgery is happy to do the biopsy. Spoke with our pathology director who is going to get in touch with [facility] regarding the logistics of sending the specimen there. if the specimen cannot be transported I would favor patient getting
biopsy down at [place] to avoid unnecessary second biopsy.
-Continue PT/OT
Elevated CK: Suspect secondary to some form of myositis
- Mild to moderately elevated at 477
- Does not meet criteria for rhabdomyolysis although this may be a smoldering case due to neuromuscular pathology
- No renal dysfunction
- ESR and CRP negative
Hyperbilirubinemia:
- Elevated and direct suspicious for Gilbert's
- No abdominal symptoms
- Appears to be an isolated hyperbilirubinemia
- Transaminases and alk phos within normal limits
Hypertension:
- Not on antihypertensive medications at home although does not follow-up regularly with physicians
- started on low-dose losartan especially considering proteinuria
- Monitor, adjust regimen as needed
DVT prophylaxis: Lovenox
CODE STATUS: Full code
Discussed with the transfer center-he is on the board for transfer today
Anticipated Discharge: Today
Subjective/Interval History
-
Date of Service: June 02, 2025
No overnight events. No new issues. Remains with lumbar weakness as before. No fever or chills. Denies swallowing difficulty or shortness of breath.
Objective Data
-
Vital Signs:
Vital Signs
Temp Pulse Resp BP Pulse Ox
98.1 F 75 20 138/90 100
06/02/25 07:05 06/02/25 08:34 06/02/25 07:05 06/02/25 08:34 06/02/25 09:38
I&O
06/01/25 06/02/25 06/03/25
06:59 06:59 06:59
Intake Total 1860 / 1860 1320 / 1320
Output Total 2630 / 2630 1500 / 1500
Balance -770 / -770 -180 / -180
Physical Exam
-
General: Comfortable
Respiratory: Non Labored Respirations; Negative Accessory Resp Muscle Use
Cardiac: Negative Tachycardic
Neuro: AO x 3
Psych: Calm; Negative Confused
[2025-06-02 15:43] VITALS: BP 152/90
[2025-06-02] MEDS: LOVENOX 40 MG SC (17:43)
[2025-06-02 23:02] VITALS: BP 129/82
[2025-06-03 06:10] VITALS: BMI 28.7
[2025-06-03 07:05] VITALS: BP 136/85
[2025-06-03] MEDS: VITAMIN B-12 1000 MCG PO (08:03)
[2025-06-03] MEDS: COZAAR 25 MG PO (08:03)
--- NOTE | 2025-06-03 14:21 | W.PN.HOSP.TC ---
Today's Communication/Plan
-
DC to [facility] when bed available
Assessment / Plan
Assessment / Plan
Mr. Collins is a 55-year-old male with a medical history of lumbar spinal stenosis (due to vertebral disc herniations, status post spinal fusion at age 19) who presented with progressive weakness in his upper and lower extremities over the past few
months which is now limiting his ability to ambulate. He had previously been able to ambulate with the assistance of a cane or walker. However, recently he has had to move about his home by crawling and now his arms have become so weak he is
unable even to do that which is why he has presented for medical evaluation. He does not follow-up with any physicians on a regular basis.
Generalized weakness secondary to muscle weakness and atrophy
- Appears acute on chronic as he had some residual lower extremity weakness following his spinal fusion at age 19, however has worsened over the last few months and is now affecting his arms as well
- No demyelinating disease seen on brain and C-spine MRI, does show C5-6 uncovertebral/facet disease contributing to minimal spinal canal and moderate neuroforaminal stenosis. Appreciate neurology input
- Does have mildly elevated CK
- EMG
Inflammatory or toxic/necrotic myopathy.
The abnormalities could be seen in polymyositis. Inclusion body myositis could also cause the abnormalities, however, there is sparing of the hand intrinsic musculature which would typically be involved in inclusion body myositis.
- Discussed with on-call rheumatology who said they do not come into the hospital anymore.
-Case was discussed with medicine and rheumatology at [facility] on 05/29 and they accepted the patient. They requested that a surgical biopsy be performed while waiting for the bed and possible send the biopsy specimen to [place]. General
surgery is happy to do the biopsy. Spoke with our pathology director who is going to get in touch with [facility] regarding the logistics of sending the specimen there. if the specimen cannot be transported I would favor patient getting
biopsy down at [place] to avoid unnecessary second biopsy.
-Continue PT/OT
Elevated CK: Suspect secondary to some form of myositis
- Mild to moderately elevated at 477
- Does not meet criteria for rhabdomyolysis although this may be a smoldering case due to neuromuscular pathology
- No renal dysfunction
- ESR and CRP negative
Hyperbilirubinemia:
- Elevated and direct suspicious for Gilbert's
- No abdominal symptoms
- Appears to be an isolated hyperbilirubinemia
- Transaminases and alk phos within normal limits
Hypertension:
- Not on antihypertensive medications at home although does not follow-up regularly with physicians
- started on low-dose losartan especially considering proteinuria
- Monitor, adjust regimen as needed
DVT prophylaxis: Lovenox
CODE STATUS: Full code
Discussed with the transfer center again today - await bed availability
Anticipated Discharge: Within 24 hours
Subjective/Interval History
-
Date of Service: June 03, 2025
No new complaints
Remains weak with his muscles
Objective Data
-
Vital Signs:
Vital Signs
Temp Pulse Resp BP Pulse Ox
97.8 F 72 20 136/83 99
06/03/25 07:05 06/03/25 08:03 06/03/25 07:05 06/03/25 08:03 06/03/25 11:20
I&O
06/02/25 06/03/25 06/04/25
06:59 06:59 06:59
Intake Total 1320 / 1320 1560 / 1560
Output Total 1500 / 1500 1230 / 1230
Balance -180 / -180 330 / 330
Physical Exam
-
Respiratory: Non Labored Respirations; Negative Accessory Resp Muscle Use
Cardiac: Regular Rhythm and S1/S2; Negative Tachycardic
Neuro: AO x 3
[2025-06-03 15:05] VITALS: BP 138/100
[2025-06-03] MEDS: LOVENOX 40 MG SC (17:31)
[2025-06-03 23:15] VITALS: BP 140/88
[2025-06-04 07:50] VITALS: BP 139/88
[2025-06-04] MEDS: VITAMIN B-12 1000 MCG PO (08:05)
[2025-06-04] MEDS: COZAAR 25 MG PO (08:06)
--- NOTE | 2025-06-04 12:42 | CM ---
CM following re: discharge planning.
Reviewed pt's chart, met with pt.
Awaiting transfer to [facility] when bed available.
D/C plan: transfer to [facility].
--- NOTE | 2025-06-04 14:14 | W.PN.HOSP.TC ---
Today's Communication/Plan
-
Assessment / Plan
Assessment / Plan
General: No Apparent Distress, Comfortable and Conversant
HEENT: NormoCephalic, Moist mucous membranes, Atraumatic
Respiratory: Clear and Non Labored Respirations
Cardiac: S1/S2 and Regular Rhythm; No Rub or Gallop
GI: Soft, Non Tender, Non Distended and Normal Bowel Sounds
Musculoskeletal: No Edema, no deformity, decreased muscle bulk throughout upper and lower extremities
Skin: Warm and dry
: NO Urena
Neuro: Awake, Alert, Nonfocal/grossly intact, upper extremity paresthesias, generalized weakness in his extremities (lower extremities worse than upper extremities)
Psych: Calm and Intact Judgment/Insight
Mr. Collins is a 55-year-old male with a medical history of lumbar spinal stenosis (due to vertebral disc herniations, status post spinal fusion at age 19) who presented with progressive weakness in his upper and lower extremities over the past few
months which is now limiting his ability to ambulate. He had previously been able to ambulate with the assistance of a cane or walker. However, recently he has had to move about his home by crawling and now his arms have become so weak he is
unable even to do that which is why he has presented for medical evaluation. He does not follow-up with any physicians on a regular basis.
Generalized weakness secondary to muscle weakness and atrophy
- Appears acute on chronic as he had some residual lower extremity weakness following his spinal fusion at age 19, however has worsened over the last few months and is now affecting his arms as well
- No demyelinating disease seen on brain and C-spine MRI, does show C5-6 uncovertebral/facet disease contributing to minimal spinal canal and moderate neuroforaminal stenosis. Appreciate neurology input
- Does have mildly elevated CK, CRP and ESR within normal limits
- EMG showing inflammatory or toxic/necrotic myopathy, could be seen in polymyositis. Inclusion body myositis could also cause the abnormalities, however, there is sparing of the hand intrinsic musculature which would typically be involved in
inclusion body myositis.
- Discussed with on-call rheumatology who said they do not come into the hospital anymore.
-Case was discussed with medicine and rheumatology at [facility] on 05/29 and they accepted the patient. They requested that a surgical biopsy be performed while waiting for the bed and possible send the biopsy specimen to [place]. General
surgery is happy to do the biopsy. Spoke with our pathology director who is going to get in touch with [facility] regarding the logistics of sending the specimen there. if the specimen cannot be transported I would favor patient getting
biopsy down at [place] to avoid unnecessary second biopsy. Ongoing updates with [place] transfer center [phone]
-Continue PT/OT
Elevated CK: Suspect secondary to some form of myositis
- Mild to moderately elevated at 477
- Does not meet criteria for rhabdomyolysis although this may be a smoldering case due to neuromuscular pathology
- No renal dysfunction
- ESR and CRP negative
Hyperbilirubinemia:
- Elevated and direct suspicious for Gilbert's
- No abdominal symptoms
- Appears to be an isolated hyperbilirubinemia
- Transaminases and alk phos within normal limits
Hypertension:
- Not on antihypertensive medications at home although does not follow-up regularly with physicians
- started on low-dose losartan especially considering proteinuria
- Monitor, adjust regimen as needed
DVT prophylaxis: Lovenox
CODE STATUS: Full code
Discussed with the transfer center again today - await coordination with pathology regarding preparation of muscle biopsy specimens
Total time spent with patient care today was 54 minutes.
Anticipated Discharge: 24 - 48 hours
Subjective/Interval History
-
Date of Service: June 04, 2025
Patient was seen and examined at bedside this morning. Remains severely weak. Family decision about muscle biopsy for further evaluation of suspected polymyositis or inclusion body myositis.
Objective Data
-
Vital Signs:
Vital Signs
Temp Pulse Resp BP Pulse Ox
97.8 F 69 18 139/88 100
06/04/25 07:50 06/04/25 08:06 06/04/25 07:50 06/04/25 08:06 06/04/25 09:39
I&O
06/03/25 06/04/25 06/05/25
06:59 06:59 06:59
Intake Total 1560 / 1560 2160 / 2160
Output Total 1230 / 1230 2800 / 2800 525 / 525
Balance 330 / 330 -640 / -640 -525 / -525
Review of Systems
-
History Source: Patient
All other systems: Reviewed and negative
Constitutional: Reports Weakness
Physical Exam
-
General: No Apparent Distress
--- NOTE | 2025-06-04 14:54 | W.PN.UPDATE ---
Update Note
Progress Note Update
Spoke with Dr. Elise Duffy at [facility]. She spoke with Falca Montoya ([facility]) and the director of vital statistics of [facility]. The recommendations are to perform muscle biopsy at [place] with
pathology specimen sent to outside lab for evaluation. The results will be followed up and transfer can be reinitiated at that time if needed. At this point, plans for transfer will be canceled. The director of vital statistics recommended that the biopsy be
taken from a moderately atrophied muscle rather than a severely atrophied/end-stage muscle, preferably from a large muscle such as in the quads. Patient will be made n.p.o. after midnight for planned surgical muscle biopsy tomorrow 06/05.
[2025-06-04 15:54] VITALS: BP 149/90
--- NOTE | 2025-06-04 16:08 | CON.GS ---
Addendum entered and electronically signed by Mauricio Sabillon MD 06/05/25 08:35:
Patient seen and examined.
Patient is a 55 yo M with a PMH notable for lumbar spinal stenosis s/p L4-5 fusion with discectomy at the age of 19 following a sports injury with some residual lower extremity weakness. Since the pandemic (when he was unable to perform
PT) he has noticed a worsening in his lower extremity function. For the past few months he has noticed weakness involving in all 4 of his extremities including tingling of the hands and feet. He is currently undergoing rheumatologic and neurologic
workup. Request for lower extremity quadriceps muscle biopsy of the LEFT lower extremity.
Gen: NAD
Resp: comfortable on RA
Ext: cupping magaña noted over anterior LLE, atrophy and weakness of bilateral LE, strength 2/5, sensation to light touch diminished
Patient is a 55 yo M p/w acute on chronic extremity weakness. Request by Neurology and Rheumatology for muscle biopsy.
Plan for a muscle biopsy of the LEFT quadriceps muscle today in the OR. The procedure itself, as well as the risks, benefits, and alternatives was discussed. Specifically, we discussed the risks of bleeding, infection, injury to surrounding
structures, and need for further workup and procedures. Typical postprocedure recovery was discussed. All questions answered. Consent signed.
-- Surgical muscle biopsy of the LLE
-- NPO, IVF
-- Abx: Clindamycin
Original Note:
Consultation
-
Date/Time Consultation Performed: 06/04/25 1600
Reason for Consultation: muscle biopsy
Medical History
-
Chief Complaint: weakness
History of Present Illness:
Mr Collins is a 55 yo male who has a h/o lumbar spinal stenosis s/p fusion to L4, L5 with discectomy at the age of 19 after a sport's injury with some residual LE weakness. He has followed with PT in the past with chronic use of cane or walker. He
notes that since the pandemic when he was unable to do his PT, this worsened. He had begun doing his PT exercises at home but has never regained his strength and over the past years has progressively become more weak and atrophied. For the past few
months, his weakness has rapidly progressed and involved all 4 extremities with new onset of tingling in the hands and feet. He is currently undergoing rheumatologic and neurologic work up and surgery is consulted for muscle biopsy.
Past Medical History
Past Medical History: HTN
Past Surgical History: Orthopedic (L4-L5 discectomy and spinal fusion at age of 19)
Social History
Tobacco: Non-Smoker
Alcohol: Occasional
Family History
Family History: Reviewed & Not Pertinent
Allergies / Home Medications
Allergy/AdvReac Type Severity Reaction Status Date / Time
amoxicillin Allergy Anaphylaxis Verified 05/26/25 14:18
Penicillins Allergy Anaphylaxis Verified 05/26/25 14:18
povidone-iodine (From Allergy Rash Verified 05/26/25 14:18
Betadine)
�Medication �Instructions �Recorded �Confirmed �Type
clindamycin HCl 300 mg capsule 300 mg PO TID #21 caps 04/20/17 Rx
Review of Systems
-
History Source: Patient
All other systems: Negative unless noted
A 10 point review of systems was completed, and was negative except as per HPI.
Physical Exam
Vital Signs
Temp Pulse Resp BP Pulse Ox
98.2 F 87 18 149/90 97
06/04/25 15:54 06/04/25 15:54 06/04/25 15:54 06/04/25 15:54 06/04/25 15:54
06/03/25 06/04/25 06/05/25
06:59 06:59 06:59
Actual Weight 83.143 kg
Body Mass Index (BMI) 28.7
Lab Results
05/28/25 06:57
05/30/25 06:36
WBC 6.4 10^3/uL (4.8-10.8) 05/28/25 06:57
Hgb 14.2 g/dL (13.0-18.0) 05/28/25 06:57
Hct 42.4 % (39.0-52.0) 05/28/25 06:57
Plt Count 241 10^3/uL (130-400) 05/28/25 06:57
Abs Immat Gran (auto) 0.0 10^3/uL (0-0.05) 05/28/25 06:57
Neutrophils % 74.0 % (42.2-75.2) 05/28/25 06:57
Physical Exam
General: Comfortable
HEENT: Moist Mucous Membranes
Respiratory: Non Labored Respirations
GI: Soft and Non Tender
Musculoskeletal: Other (atrophy noted to BL UE and LE)
Skin: Warm and Dry
Neuro: Awake, Alert and AO x 3
Psych: Calm
Assessment / Plan
-
55 yo male h/o lumbar spinal stenosis s/p fusion to L4, L5 with discectomy at the age of 19 after a sport's injury with some residual LE weakness admitted for progressive weakness with muscle atrophy and pins/needles sensation. He is being worked up
in by neurology here at [facility] as well as the rheumatology service at [facility] remotely with definitive diagnosis yet to be made. Surgery is consulted for muscle biopsy. Last labs were on 05/30 and stable. AFVSS.
Plan:
NPO after MN for muscle biopsy
Labs in AM prior to OR
Pathology to be sent to [facility] for analysis after collection. Will d/w pathology for biopsy prep.
[2025-06-04] MEDS: LOVENOX 40 MG SC (17:04)
[2025-06-04 23:05] VITALS: BP 141/82
[2025-06-05] VITALS (9 sets, daily range): BP systolic 13–136; BP diastolic 71–91
[2025-06-05 07:23] LABS: APTT 28.0 Sec (23.4-35.0); INR 0.92; PT 12.7 Sec (11.4-14.6)
[2025-06-05 07:24] LABS: Hematocrit 47.4 % (39.0-52.0); Hemoglobin 15.3 g/dL (13.0-18.0); Mean Corp Hgb Conc. 32.3 g/dL (33.0-37.0); Mean Corpuscular Volume 85.9 fL (80.0-94.0); Platelet Count 303 10^3/uL (130-400); Red Cell Dist. Width 13.5 % (11.5-14.5)
[2025-06-05 07:35] LABS: Blood Urea Nitrogen 16 mg/dl (9-20); Calcium 9.3 mg/dl (8.4-10.2); Carbon Dioxide 26 mmol/L (22-30); Chloride 104 mmol/L (98-107); Estimated Creatinine Clearance > 125 ml/min; Glucose 114 mg/dl (70-99); Potassium 4.5 mmol/L (3.5-5.1); Sodium 138 mmol/L (135-145); eGFR > 60.00
[2025-06-05] MEDS: COZAAR 25 MG PO (08:25)
[2025-06-05] MEDS: VITAMIN B-12 1000 MCG PO (08:25)
--- NOTE | 2025-06-05 08:35 | W.SUR.PREOP ---
Pre-Operative Surgical Note
-
I have examined this patient prior to the performance of the scheduled procedure.
The patient's condition is unchanged from the time of the current History and
Physical and the patient is able to undergo the scheduled procedure.
--- NOTE | 2025-06-05 10:35 | W.PN.HOSP.TC ---
Today's Communication/Plan
-
Assessment / Plan
Assessment / Plan
General: No Apparent Distress, Comfortable and Conversant
HEENT: NormoCephalic, Moist mucous membranes, Atraumatic
Respiratory: Clear and Non Labored Respirations
Cardiac: S1/S2 and Regular Rhythm; No Rub or Gallop
GI: Soft, Non Tender, Non Distended and Normal Bowel Sounds
Musculoskeletal: No Edema, no deformity, decreased muscle bulk throughout upper and lower extremities
Skin: Warm and dry
: NO Urena
Neuro: Awake, Alert, Nonfocal/grossly intact, upper extremity paresthesias, generalized weakness in his extremities (lower extremities worse than upper extremities)
Psych: Calm and Intact Judgment/Insight
Mr. Collins is a 55-year-old male with a medical history of lumbar spinal stenosis (due to vertebral disc herniations, status post spinal fusion at age 19) who presented with progressive weakness in his upper and lower extremities over the past few
months which is now limiting his ability to ambulate. He had previously been able to ambulate with the assistance of a cane or walker. However, recently he has had to move about his home by crawling and now his arms have become so weak he is
unable even to do that which is why he has presented for medical evaluation. He does not follow-up with any physicians on a regular basis.
Generalized weakness secondary to muscle weakness and atrophy
- Appears acute on chronic as he had some residual lower extremity weakness following his spinal fusion at age 19, however has worsened over the last few months and is now affecting his arms as well
- No demyelinating disease seen on brain and C-spine MRI, does show C5-6 uncovertebral/facet disease contributing to minimal spinal canal and moderate neuroforaminal stenosis. Appreciate neurology input
- Does have mildly elevated CK, CRP and ESR within normal limits
- EMG showing inflammatory or toxic/necrotic myopathy, could be seen in polymyositis. Inclusion body myositis could also cause the abnormalities, however, there is sparing of the hand intrinsic musculature which would typically be involved in
inclusion body myositis.
- Discussed with on-call rheumatology who said they do not come into the hospital anymore.
- Case was discussed with medicine and rheumatology at [facility] on 05/29 and they accepted the patient. However after further discussion it is been decided that the best course of action is to obtain muscle biopsy at [facility]
and pathology results will be followed up by the wind field service manager at [facility] with treatment recommendations to follow. If needed patient can be transferred at that time. For now transfer has been canceled. [place] transfer center [phone]
-Continue PT/OT
Elevated CK: Suspect secondary to some form of myositis
- Mild to moderately elevated at 477 => 301
- Does not meet criteria for rhabdomyolysis although this may be a smoldering case due to neuromuscular pathology
- No renal dysfunction
- ESR and CRP negative
Hyperbilirubinemia:
- Elevated and direct suspicious for Gilbert's
- No abdominal symptoms
- Appears to be an isolated hyperbilirubinemia
- Transaminases and alk phos within normal limits
Hypertension:
- Not on antihypertensive medications at home although does not follow-up regularly with physicians
- started on low-dose losartan especially considering proteinuria
- Monitor, adjust regimen as needed
DVT prophylaxis: Lovenox
CODE STATUS: Full code
Total time spent with patient care today was 51 minutes.
Anticipated Discharge: > 48 hours
Subjective/Interval History
-
Date of Service: June 05, 2025
Patient was seen and examined at bedside this morning. His extremity weakness persist. He is scheduled for muscle biopsy today.
Objective Data
-
Labs:
Laboratory Results
06/05/25
06:09
WBC 8.5
Hgb 15.3
Hct 47.4
Plt Count 303
PT 12.7
INR 0.92
APTT 28.0
Sodium 138
Potassium 4.5
Chloride 104
Carbon Dioxide 26
BUN 16
Creatinine 0.4 L
Glucose 114 H
Calcium 9.3
Vital Signs:
Vital Signs
Temp Pulse Resp BP Pulse Ox
98.1 F 65 18 134/89 100
06/05/25 07:00 06/05/25 08:25 06/05/25 07:00 06/05/25 08:25 06/05/25 07:00
I&O
06/04/25 06/05/25 06/06/25
06:59 06:59 06:59
Intake Total 2160 / 2160 960 / 960
Output Total 2800 / 2800 1075 / 1075
Balance -640 / -640 -115 / -115
Review of Systems
-
History Source: Patient
All other systems: Reviewed and negative
Constitutional: Reports Weakness
Neuro: Reports Weakness
Physical Exam
-
General: No Apparent Distress
--- NOTE | 2025-06-05 14:21 | W.IMMPOSTOP ---
Surgical Immed Post Op Note
-
Primary Surgeon: Ridge
Assisting Surgeon: None
Pre-op Diagnosis: Muscle weakness
Post-op Diagnosis: Muscle weakness
Procedure Performed: Muscle biopsy of LEFT quadriceps muscle
Anesthesia Type: MAC/local
Specimen / Cultures:
1. LEFT quad muscle biopsy
Estimated Blood Loss: 7 cc
Complications: None
Operative Findings:
1. LEFT anterior quad muscle biopsy x2 submitted and prepared according to package/kit instructions
2. Hemostatic operative field, wound closed in multiple layers
--- NOTE | 2025-06-05 14:53 | CM ---
CM following re: discharge planning.
Reviewed pt's chart, met with pt.
Per MD, transfer to [facility] cancelled yesterday, Muscle biopsy of LEFT quadriceps muscle procedure performed today at , continue supportive care.
Updated PT and OT evaluations noted - acute rehab recommended. [facility] rn following. Pt will need PM&R consult closer to discharge to confirm qualification for acute level of rehab.
[facility] SNF referral made and director of product marketing following re: pt's progress.
D/c plan: [facility] or [facility].
CM will follow with discharge plan updates as hospitalization progresses
[2025-06-05] MEDS: LOVENOX 40 MG SC (17:07)
--- NOTE | 2025-06-05 17:11 | W.PN.UPDATE ---
Update Note
Progress Note Update
Muscle biopsy obtained from anterior left thigh by surgical team, which is appreciated. Pathology pending. Will now start trial of high-dose glucocorticoids.
[2025-06-05] MEDS: DELTASONE 50 MG PO (17:48)
[2025-06-06] MEDS: TUMS CHEWABLE TABLET 400 MG PO (02:04)
[2025-06-06 07:00] VITALS: BP 139/88
[2025-06-06] MEDS: DELTASONE 50 MG PO (09:30)
[2025-06-06] MEDS: VITAMIN B-12 1000 MCG PO (09:30)
[2025-06-06] MEDS: COZAAR 25 MG PO (09:30)
--- NOTE | 2025-06-06 10:07 | W.PN.SURGUPD ---
Surgical Update
Surgical Update
Patient seen and examined. No complaints. Dressing evaluated and clean dry and intact. Replace as needed with dry gauze and either tape or an Gerry wrap to hold in place. Can do this for the next 2 to 3 days. Following no drainage no need for
further replacement. Steri-Strips will flake off in 2 to 3 weeks. Stitches will dissolve. Activities as tolerated. Biopsy results to be reviewed and interpreted by his Dental Front Office Assistant or Neurologist. All questions answered. Call or return to
the office as needed. Please call with any questions or concerns.
[2025-06-06 11:00] VITALS: BP 137/82
--- NOTE | 2025-06-06 12:33 | W.PN.HOSP.TC ---
Today's Communication/Plan
-
Assessment / Plan
Assessment / Plan
General: No Apparent Distress, Comfortable and Conversant
HEENT: NormoCephalic, Moist mucous membranes, Atraumatic
Respiratory: Clear and Non Labored Respirations
Cardiac: S1/S2 and Regular Rhythm; No Rub or Gallop
GI: Soft, Non Tender, Non Distended and Normal Bowel Sounds
Musculoskeletal: No Edema, no deformity, decreased muscle bulk throughout upper and lower extremities
Skin: Warm and dry
: NO Urena
Neuro: Awake, Alert, Nonfocal/grossly intact, upper extremity paresthesias, generalized weakness in his extremities (lower extremities worse than upper extremities)
Psych: Calm and Intact Judgment/Insight
Mr. Collins is a 55-year-old male with a medical history of lumbar spinal stenosis (due to vertebral disc herniations, status post spinal fusion at age 19) who presented with progressive weakness in his upper and lower extremities over the past few
months which is now limiting his ability to ambulate. He had previously been able to ambulate with the assistance of a cane or walker. However, recently he has had to move about his home by crawling and now his arms have become so weak he is
unable even to do that which is why he has presented for medical evaluation. He does not follow-up with any physicians on a regular basis.
Generalized weakness secondary to muscle weakness and atrophy
- Appears acute on chronic as he had some residual lower extremity weakness following his spinal fusion at age 19, however has worsened over the last few months and is now affecting his arms as well
- No demyelinating disease seen on brain and C-spine MRI, does show C5-6 uncovertebral/facet disease contributing to minimal spinal canal and moderate neuroforaminal stenosis. Appreciate neurology input
- Does have mildly elevated CK, CRP and ESR within normal limits
- EMG showing inflammatory or toxic/necrotic myopathy, could be seen in polymyositis. Inclusion body myositis could also cause the abnormalities, however, there is sparing of the hand intrinsic musculature which would typically be involved in
inclusion body myositis.
- Discussed with on-call rheumatology who said they do not come into the hospital anymore.
- Case was discussed with medicine and rheumatology at [facility] on 05/29 and they accepted the patient. However after further discussion it is been decided that the best course of action is to obtain muscle biopsy at [facility]
and pathology results will be followed up by the louver door assembler at [facility] with treatment recommendations to follow. If needed patient can be transferred at that time. For now transfer has been canceled. [place] transfer center [phone]
- Muscle biopsy taken from left anterior thigh 06/05, pathology pending
- Started on high-dose steroids currently with prednisone 50 mg p.o. daily
- Pending rehab placement, medically stable for discharge
Elevated CK:
- Suspect secondary to some form of myositis
- Mild to moderately elevated at 477 => 301
- Does not meet criteria for rhabdomyolysis although this may be a smoldering case due to neuromuscular pathology
- No renal dysfunction
- ESR and CRP negative
Hyperbilirubinemia:
- Elevated and direct suspicious for Gilbert's
- No abdominal symptoms
- Appears to be an isolated hyperbilirubinemia
- Transaminases and alk phos within normal limits
Hypertension:
- Not on antihypertensive medications at home although does not follow-up regularly with physicians
- started on low-dose losartan especially considering proteinuria
- Monitor, adjust regimen as needed
DVT prophylaxis: Lovenox
CODE STATUS: Full code
Total time spent with patient care today was 46 minutes.
Anticipated Discharge: 24 - 48 hours
Subjective/Interval History
-
Date of Service: June 06, 2025
Patient was seen and examined at bedside this morning. Muscle biopsy obtained from anterior left thigh yesterday. Started on high-dose steroids.
Objective Data
-
Vital Signs:
Vital Signs
Temp Pulse Resp BP Pulse Ox
98.3 F 94 16 137/82 99
06/06/25 11:00 06/06/25 11:00 06/06/25 11:00 06/06/25 11:00 06/06/25 11:00
I&O
06/05/25 06/06/25 06/07/25
06:59 06:59 06:59
Intake Total 960 / 960 1800 / 1800
Output Total 1075 / 1075 1675 / 1675
Balance -115 / -115 125 / 125
Review of Systems
-
History Source: Patient
All other systems: Reviewed and negative
Constitutional: Reports Weakness
Physical Exam
-
General: No Apparent Distress
--- NOTE | 2025-06-06 14:33 | CM ---
CM following re: discharge planning.
Reviewed pt's chart, met with pt.
According to MD pt is medically stable to be discharged.
PT and OT continue recommending acute rehab level of care.
PM&R consult noted - acute rehab recommended.
CM spoke to [facility] acute rehabilitation assistant, updated clinical faxed to [facility]. Awaiting for determination.
D/C plan: [facility]. Awaiting for determination. Pt will need an auth
[2025-06-06 15:00] VITALS: BP 157/91; BP 160/86; PULSE 88; O2SAT 99
[2025-06-06 16:16] VITALS: BP 160/86; PULSE 88; O2SAT 99
[2025-06-06] MEDS: LOVENOX 40 MG SC (17:50)
--- NOTE | 2025-06-06 19:55 | W.PN.NEURO.1 ---
Today's Communication / Plan
-
inflammatory myopathy vs mitochondrial myopathy vs limb girdle muscular dystrophy
await histopathology
prednisone 50
Neuro Assessment/Plan
Assessment
55 year old male with a medical history of lumbar spinal stenosis (due to vertebral disc herniations, status post spinal fusion at age 19) who presented with insidious onset x many years, with progressive weakness in his upper and lower extremities
over the past few months which is now limiting his ability to ambulate.
brain MRI imgs rev'd, normal
MRI c-spine report rev'd mild degenerative changes that do not explain his quadriparesis
EMG showing Inflammatory or toxic/necrotic myopathy.
The abnormalities could be seen in polymyositis. Inclusion body myositis could also cause the abnormalities, however, there is sparing of the hand intrinsic musculature which would typically be involved in inclusion body myositis.
Labs: Vitamin B12 264, CRP<5, CK 477
Impression: progressive weakness of upper and lower extremities now limiting ambulation
EMG showing myopathy
After the EMG, it was planned for him to transfer to [facility] for an inpatient [facility] clinic evaluation, but after several days waiting for a bed, it was determined that they won't be able to take him and the muscle biopsy was performed here yesterday.
muscle biopsy obtained and sent to [facility]
spoke with patient that this is either an inflammatory myopathy such as polymyositis that will respond to steroids, a type of mitochondrial myopathy, or a limb-girdle muscular dystrophy (LGMD), what Dr Casas's EMG report called 'necrotic myopathy'
which has somehow acutely decompensated, which is not expected, because an older age of onset suggests a milder phenotype, and therefore slower progression.
if mitochondrial myopathy or LGMD, it will not respond to steroids. He is too old for Duchenne/Sandoval/Myoshi. .
importance of histopathology is that inflammatory myopathies typically affect actin and myosin, where as LGMD would affect the cell membrane or it's anchoring proteins, in which case he should not overdo therapy as over-exercise the weakened muscle
fibers are more likely to rupture during contraction.
If this is an LGMD, the genetics is important because some of the genes have experimental gene therapies, and certain genes come with cardiac arrhythmias and he could require cardiac monitoring or ICD
Plan
agree with prednisone 50 started yesterday.
Subjective/Objective
Subjective Data
Date of Service: June 06, 2025
had muscle bx yesterday sent to [facility], ~1 week for results.
started on prednisone by Dr Barraza
Objective Data
Vital Signs
Temp Pulse Resp BP Pulse Ox
36.8 C 103 16 157/91 97
06/06/25 15:00 06/06/25 15:00 06/06/25 15:00 06/06/25 15:00 06/06/25 15:00
Lab Results
06/05/25 06:09
06/05/25 06:09
PT 12.7 Sec (11.4-14.6) 06/05/25 06:09
INR 0.92 06/05/25 06:09
APTT 28.0 Sec (23.4-35.0) 06/05/25 06:09
Sodium 138 mmol/L (135-145) 06/05/25 06:09
Potassium 4.5 mmol/L (3.5-5.1) 06/05/25 06:09
BUN 16 mg/dl (9-20) 06/05/25 06:09
Glucose 114 mg/dl (70-99) H 06/05/25 06:09
Calcium 9.3 mg/dl (8.4-10.2) 06/05/25 06:09
Phosphorus 3.8 mg/dl (2.5-4.5) 05/28/25 06:57
Vitamin B12 Cancelled 05/28/25 08:31
Patient Allergies
amoxicillin Allergy (Verified 05/26/25 14:18)
Anaphylaxis
Penicillins Allergy (Verified 05/26/25 14:18)
Anaphylaxis
povidone-iodine (From Betadine) Allergy (Verified 05/26/25 14:18)
Rash
[2025-06-06 23:04] VITALS: BP 143/91
[2025-06-07 07:16] VITALS: BP 152/88
[2025-06-07] MEDS: COZAAR 25 MG PO (07:57)
[2025-06-07] MEDS: DELTASONE 50 MG PO (07:57)
[2025-06-07] MEDS: VITAMIN B-12 1000 MCG PO (07:57)
--- NOTE | 2025-06-07 11:31 | W.PN.HOSP.TC ---
Today's Communication/Plan
-
Assessment / Plan
Assessment / Plan
General: No Apparent Distress, Comfortable and Conversant
HEENT: NormoCephalic, Moist mucous membranes, Atraumatic
Respiratory: Clear and Non Labored Respirations
Cardiac: S1/S2 and Regular Rhythm; No Rub or Gallop
GI: Soft, Non Tender, Non Distended and Normal Bowel Sounds
Musculoskeletal: No Edema, no deformity, decreased muscle bulk throughout upper and lower extremities
Skin: Warm and dry, left anterior thigh muscle biopsy site clean dry intact
: NO Urena
Neuro: Awake, Alert, Nonfocal/grossly intact, upper extremity paresthesias, generalized weakness in his extremities (lower extremities worse than upper extremities)
Psych: Calm and Intact Judgment/Insight
Mr. Collins is a 55-year-old male with a medical history of lumbar spinal stenosis (due to vertebral disc herniations, status post spinal fusion at age 19) who presented with progressive weakness in his upper and lower extremities over the past few
months which is now limiting his ability to ambulate. He had previously been able to ambulate with the assistance of a cane or walker. However, recently he has had to move about his home by crawling and now his arms have become so weak he is
unable even to do that which is why he has presented for medical evaluation. He does not follow-up with any physicians on a regular basis.
Generalized weakness secondary to muscle weakness and atrophy
- Appears acute on chronic as he had some residual lower extremity weakness following his spinal fusion at age 19, however has worsened over the last few months and is now affecting his arms as well
- No demyelinating disease seen on brain and C-spine MRI, does show C5-6 uncovertebral/facet disease contributing to minimal spinal canal and moderate neuroforaminal stenosis.
- Does have mildly elevated CK, CRP and ESR within normal limits
- EMG showing inflammatory or toxic/necrotic myopathy, could be seen in polymyositis. Inclusion body myositis could also cause the abnormalities, however, there is sparing of the hand intrinsic musculature which would typically be involved in
inclusion body myositis.
- Discussed with on-call rheumatology who said they do not come into the hospital anymore.
- Case was discussed with medicine and rheumatology at [facility] on 05/29 and they accepted the patient. However after further discussion it is been decided that the best course of action is to obtain muscle biopsy at [facility]
and pathology results will be followed up by the deputy court clerk at [facility] with treatment recommendations to follow. If needed patient can be transferred at that time. For now transfer has been canceled. [place] transfer center [phone]
- Muscle biopsy taken from left anterior thigh 06/05, pathology pending
- Started on high-dose steroids currently with prednisone 50 mg p.o. daily
- Will benefit from acute rehab after biopsy results and further treatment plans
Elevated CK:
- Suspect secondary to some form of myositis
- Mild to moderately elevated at 477 => 301
- Does not meet criteria for rhabdomyolysis although this may be a smoldering case due to neuromuscular pathology
- No renal dysfunction
- ESR and CRP negative
Hyperbilirubinemia:
- Elevated and direct suspicious for Gilbert's
- No abdominal symptoms
- Appears to be an isolated hyperbilirubinemia
- Transaminases and alk phos within normal limits
Hypertension:
- Not on antihypertensive medications at home although does not follow-up regularly with physicians
- started on low-dose losartan especially considering proteinuria
- Monitor, adjust regimen as needed
DVT prophylaxis: Lovenox
CODE STATUS: Full code
Total time spent with patient care today was 42 minutes.
Anticipated Discharge: > 48 hours
Subjective/Interval History
-
Date of Service: June 07, 2025
Patient was seen and examined at bedside this morning. In good spirits. Awaiting muscle biopsy results.
Objective Data
-
Vital Signs:
Vital Signs
Temp Pulse Resp BP Pulse Ox
98.2 F 65 18 152/88 100
06/07/25 07:16 06/07/25 07:57 06/07/25 07:16 06/07/25 07:57 06/07/25 07:16
I&O
06/06/25 06/07/25 06/08/25
06:59 06:59 06:59
Intake Total 1800 / 1800 1290 / 1290
Output Total 1675 / 1675 1625 / 1625
Balance 125 / 125 -335 / -335
Review of Systems
-
History Source: Patient
All other systems: Reviewed and negative
Neuro: Reports Weakness
Physical Exam
-
General: No Apparent Distress
--- NOTE | 2025-06-07 12:46 | CM ---
CM following re: discharge planning.
Reviewed pt's chart, met with pt.
According to pt is medically stable to be discharged.
PT and OT continue recommending acute rehab level of care.
PM&R consult noted - acute rehab recommended.
[place] acute rehab manager following and determination will be made after after biopsy results and further treatment plans
D/C plan: [place] acute rehab. Awaiting for determination. Pt will need an auth
[2025-06-07 15:13] VITALS: BP 130/84
[2025-06-07 16:42] VITALS: BP 157/92; PULSE 85; O2SAT 98
[2025-06-07] MEDS: LOVENOX 40 MG SC (18:10)
[2025-06-07 23:10] VITALS: BP 143/85
[2025-06-08 07:00] VITALS: BP 143/91
[2025-06-08] MEDS: VITAMIN B-12 1000 MCG PO (07:41)
[2025-06-08] MEDS: COZAAR 25 MG PO (07:41)
[2025-06-08] MEDS: DELTASONE 50 MG PO (07:41)
--- NOTE | 2025-06-08 11:23 | CM ---
CM following re: discharge planning.
Reviewed pt's chart, met with pt.
PT and OT continue recommending acute rehab level of care.
PM&R consult noted - acute rehab recommended.
[place] acute management liaison following and determination will be made after after biopsy results and further treatment plans
D/C plan: [place] acute rehab. Awaiting for determination. Pt will need an auth
--- NOTE | 2025-06-08 11:42 | W.PN.HOSP.TC ---
Today's Communication/Plan
-
Assessment / Plan
Assessment / Plan
General: No Apparent Distress, Comfortable and Conversant
HEENT: NormoCephalic, Moist mucous membranes, Atraumatic
Respiratory: Clear and Non Labored Respirations
Cardiac: S1/S2 and Regular Rhythm; No Rub or Gallop
GI: Soft, Non Tender, Non Distended and Normal Bowel Sounds
Musculoskeletal: No Edema, no deformity, decreased muscle bulk throughout upper and lower extremities
Skin: Warm and dry, left anterior thigh muscle biopsy site clean dry intact
: NO Urena
Neuro: Awake, Alert, Nonfocal/grossly intact, upper extremity paresthesias, generalized weakness in his extremities (lower extremities worse than upper extremities)
Psych: Calm and Intact Judgment/Insight
Mr. Collins is a 55-year-old male with a medical history of lumbar spinal stenosis (due to vertebral disc herniations, status post spinal fusion at age 19) who presented with progressive weakness in his upper and lower extremities over the past few
months which is now limiting his ability to ambulate. He had previously been able to ambulate with the assistance of a cane or walker. However, recently he has had to move about his home by crawling and now his arms have become so weak he is
unable even to do that which is why he has presented for medical evaluation. He does not follow-up with any physicians on a regular basis.
Generalized weakness secondary to muscle weakness and atrophy
- Appears acute on chronic as he had some residual lower extremity weakness following his spinal fusion at age 19, however has worsened over the last few months and is now affecting his arms as well
- No demyelinating disease seen on brain and C-spine MRI, does show C5-6 uncovertebral/facet disease contributing to minimal spinal canal and moderate neuroforaminal stenosis.
- Does have mildly elevated CK, CRP and ESR within normal limits
- EMG showing inflammatory or toxic/necrotic myopathy, could be seen in polymyositis. Inclusion body myositis could also cause the abnormalities, however, there is sparing of the hand intrinsic musculature which would typically be involved in
inclusion body myositis.
- Discussed with on-call rheumatology who said they do not come into the hospital anymore.
- Case was discussed with medicine and rheumatology at [facility] on 05/29 and they accepted the patient. However after further discussion it is been decided that the best course of action is to obtain muscle biopsy at [facility]
and pathology results will be followed up by the streetcar conductor at [facility] with treatment recommendations to follow. If needed patient can be transferred at that time. For now transfer has been canceled. [place] transfer center [phone]
- Muscle biopsy taken from left anterior thigh 06/05, pathology pending
- Started on high-dose steroids 06/05 with prednisone 50 mg p.o. daily
- Will benefit from acute rehab after biopsy results and further treatment plans
Elevated CK:
- Suspect secondary to some form of myositis
- Mild to moderately elevated at 477 => 301
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
- No renal dysfunction
- ESR and CRP negative
Hyperbilirubinemia:
- Elevated and direct suspicious for Gilbert's
- No abdominal symptoms
- Appears to be an isolated hyperbilirubinemia
- Transaminases and alk phos within normal limits
Hypertension:
- Not on antihypertensive medications at home although does not follow-up regularly with physicians
- started on low-dose losartan especially considering proteinuria
- Monitor, adjust regimen as needed
DVT prophylaxis: Lovenox
CODE STATUS: Full code
Total time spent with patient care today was 40 minutes.
Anticipated Discharge: > 48 hours
Subjective/Interval History
-
Date of Service: June 08, 2025
Patient was seen and examined at bedside this morning. Feeling well. Still has muscle weakness. Tolerating steroid treatment. Awaiting muscle biopsy results.
Objective Data
-
Vital Signs:
Vital Signs
Temp Pulse Resp BP Pulse Ox
98.2 F 67 20 143/91 100
06/08/25 07:00 06/08/25 07:41 06/08/25 07:00 06/08/25 07:41 06/08/25 07:00
I&O
06/07/25 06/08/25 06/09/25
06:59 06:59 06:59
Intake Total 1290 / 1290 1320 / 1320
Output Total 1625 / 1625 2150 / 2150
Balance -335 / -335 -830 / -830
Review of Systems
-
History Source: Patient
All other systems: Reviewed and negative
Musculoskeletal: Reports Muscle Weakness
Physical Exam
-
General: No Apparent Distress
[2025-06-08 15:27] VITALS: BP 133/79
[2025-06-08 16:27] VITALS: BP 133/79
[2025-06-08] MEDS: LOVENOX 40 MG SC (18:24)
[2025-06-08 23:07] VITALS: BP 136/92
[2025-06-09 07:00] VITALS: BP 133/81
[2025-06-09] MEDS: DELTASONE 50 MG PO (08:09)
[2025-06-09] MEDS: COZAAR 25 MG PO (08:09)
[2025-06-09] MEDS: VITAMIN B-12 1000 MCG PO (08:09)
--- NOTE | 2025-06-09 10:56 | W.PN.HOSP.TC ---
Today's Communication/Plan
-
Assessment / Plan
Assessment / Plan
General: No Apparent Distress, Comfortable and Conversant
HEENT: NormoCephalic, Moist mucous membranes, Atraumatic
Respiratory: Clear and Non Labored Respirations
Cardiac: S1/S2 and Regular Rhythm; No Rub or Gallop
GI: Soft, Non Tender, Non Distended and Normal Bowel Sounds
Musculoskeletal: No Edema, no deformity, decreased muscle bulk throughout upper and lower extremities
Skin: Warm and dry, left anterior thigh muscle biopsy site clean dry intact
: NO Urena
Neuro: Awake, Alert, Nonfocal/grossly intact, improving upper extremity paresthesias, generalized weakness in his extremities (lower extremities worse than upper extremities)
Psych: Calm and Intact Judgment/Insight
Mr. Collins is a 55-year-old male with a medical history of lumbar spinal stenosis (due to vertebral disc herniations, status post spinal fusion at age 19) who presented with progressive weakness in his upper and lower extremities over the past few
months which is now limiting his ability to ambulate. He had previously been able to ambulate with the assistance of a cane or walker. However, recently he has had to move about his home by crawling and now his arms have become so weak he is
unable even to do that which is why he has presented for medical evaluation. He does not follow-up with any physicians on a regular basis.
Generalized weakness secondary to muscle weakness and atrophy
- Appears acute on chronic as he had some residual lower extremity weakness following his spinal fusion at age 19, however has worsened over the last few months and is now affecting his arms as well
- No demyelinating disease seen on brain and C-spine MRI, does show C5-6 uncovertebral/facet disease contributing to minimal spinal canal and moderate neuroforaminal stenosis.
- Does have mildly elevated CK, CRP and ESR within normal limits
- EMG showing inflammatory or toxic/necrotic myopathy, could be seen in polymyositis. Inclusion body myositis could also cause the abnormalities, however, there is sparing of the hand intrinsic musculature which would typically be involved in
inclusion body myositis.
- Case was discussed with medicine and rheumatology at [facility] on 05/29 and they accepted the patient. However after further discussion it is been decided that the best course of action is to obtain muscle biopsy at [facility]
and pathology results will be followed up by the economics department chair at [facility] with treatment recommendations to follow. If needed patient can be transferred at that time. For now transfer has been canceled. [place] transfer center [phone]
- Muscle biopsy taken from left anterior thigh 06/05, pathology pending
- Started on high-dose steroids 06/05 with prednisone 50 mg p.o. daily
- Will benefit from acute rehab after biopsy results and further treatment plans
Elevated CK:
- Suspect secondary to some form of myositis
- Mild to moderately elevated at 477 => 301
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
- No renal dysfunction
- ESR and CRP negative
Hyperbilirubinemia:
- Elevated and direct suspicious for Gilbert's
- No abdominal symptoms
- Appears to be an isolated hyperbilirubinemia
- Transaminases and alk phos within normal limits
Hypertension:
- Not on antihypertensive medications at home although does not follow-up regularly with physicians
- started on low-dose losartan especially considering proteinuria
- Monitor, adjust regimen as needed
DVT prophylaxis: Lovenox
CODE STATUS: Full code
Total time spent with patient care today was 42 minutes.
Anticipated Discharge: > 48 hours
Subjective/Interval History
-
Date of Service: June 09, 2025
Patient was seen and examined at bedside this morning. Says his paresthesias are improving after starting treatment with steroids.
Objective Data
-
Vital Signs:
Vital Signs
Temp Pulse Resp BP Pulse Ox
98.3 F 68 20 133/81 98
06/09/25 07:00 06/09/25 07:00 06/09/25 07:00 06/09/25 07:00 06/09/25 07:00
I&O
06/08/25 06/09/25 06/10/25
06:59 06:59 06:59
Intake Total 1320 / 1320 930 / 930
Output Total 2150 / 2150 1625 / 1625
Balance -830 / -830 -695 / -695
Review of Systems
-
History Source: Patient
All other systems: Reviewed and negative
Physical Exam
-
General: No Apparent Distress
[2025-06-09 15:00] VITALS: BP 124/83
[2025-06-09] MEDS: LOVENOX 40 MG SC (17:23)
[2025-06-09 23:33] VITALS: BP 144/79
[2025-06-10 06:28] LABS: Hematocrit 44.4 % (39.0-52.0); Hemoglobin 14.8 g/dL (13.0-18.0); Mean Corp Hgb Conc. 33.3 g/dL (33.0-37.0); Mean Corpuscular Volume 83.6 fL (80.0-94.0); Nucleated Red Blood Cells % 0 % (-); Platelet Count 300 10^3/uL (130-400); Red Cell Dist. Width 13.4 % (11.5-14.5)
[2025-06-10 06:44] LABS: ALT (SGPT) 55 U/L (0-50); AST (SGOT) 21 U/L (17-59); Albumin 3.8 g/dl (3.5-5.0); Alkaline Phosphatase 86 U/L (38-126); Blood Urea Nitrogen 21 mg/dl (9-20); Calcium 9.1 mg/dl (8.4-10.2); Carbon Dioxide 24 mmol/L (22-30); Chloride 105 mmol/L (98-107); Estimated Creatinine Clearance > 125 ml/min; Glucose 130 mg/dl (70-99); Potassium 4.5 mmol/L (3.5-5.1); Sodium 135 mmol/L (135-145); Total Protein 6.1 g/dl (6.3-8.2); eGFR > 60.00
[2025-06-10 07:13] VITALS: BP 127/79
[2025-06-10] MEDS: DELTASONE 50 MG PO (08:26)
[2025-06-10] MEDS: VITAMIN B-12 1000 MCG PO (08:26)
[2025-06-10] MEDS: COZAAR 25 MG PO (08:26)
--- NOTE | 2025-06-10 12:59 | W.PN.HOSP.TC ---
Today's Communication/Plan
-
Assessment / Plan
Assessment / Plan
General: No Apparent Distress, Comfortable and Conversant
HEENT: NormoCephalic, Moist mucous membranes, Atraumatic
Respiratory: Clear and Non Labored Respirations
Cardiac: S1/S2 and Regular Rhythm; No Rub or Gallop
GI: Soft, Non Tender, Non Distended and Normal Bowel Sounds
Musculoskeletal: No Edema, no deformity, decreased muscle bulk throughout upper and lower extremities
Skin: Warm and dry, left anterior thigh muscle biopsy site clean dry intact
: NO Urena
Neuro: Awake, Alert, Nonfocal/grossly intact, improving upper extremity paresthesias, generalized weakness in his extremities (lower extremities worse than upper extremities)
Psych: Calm and Intact Judgment/Insight
Mr. Collins is a 55-year-old male with a medical history of lumbar spinal stenosis (due to vertebral disc herniations, status post spinal fusion at age 19) who presented with progressive weakness in his upper and lower extremities over the past few
months which is now limiting his ability to ambulate. He had previously been able to ambulate with the assistance of a cane or walker. However, recently he has had to move about his home by crawling and now his arms have become so weak he is
unable even to do that which is why he has presented for medical evaluation. He does not follow-up with any physicians on a regular basis.
Generalized weakness secondary to muscle weakness and atrophy
- Appears acute on chronic as he had some residual lower extremity weakness following his spinal fusion at age 19, however has worsened over the last few months and is now affecting his arms as well
- No demyelinating disease seen on brain and C-spine MRI, does show C5-6 uncovertebral/facet disease contributing to minimal spinal canal and moderate neuroforaminal stenosis.
- Does have mildly elevated CK, CRP and ESR within normal limits
- EMG showing inflammatory or toxic/necrotic myopathy, could be seen in polymyositis. Inclusion body myositis could also cause the abnormalities, however, there is sparing of the hand intrinsic musculature which would typically be involved in
inclusion body myositis.
- Case was discussed with medicine and rheumatology at [facility] on 05/29 and they accepted the patient. However after further discussion it is been decided that the best course of action is to obtain muscle biopsy at [facility]
and pathology results will be followed up by the biological science technician at [facility] with treatment recommendations to follow. If needed patient can be transferred at that time. For now transfer has been canceled. [place] transfer center [phone]
- Muscle biopsy taken from left anterior thigh 06/05, pathology pending
- Started on high-dose steroids 06/05 with prednisone 50 mg p.o. daily
- Will benefit from acute rehab after biopsy results and further treatment plans
Elevated CK:
- Suspect secondary to some form of myositis
- Mild to moderately elevated at 477 => 301 => 115 (after 5 days of steroids)
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
- No renal dysfunction
- ESR and CRP negative
Hyperbilirubinemia:
- Elevated indirect suspicious for Gilbert's
- No abdominal symptoms
- Appears to be an isolated hyperbilirubinemia
- Transaminases and alk phos within normal limits
Hypertension:
- Not on antihypertensive medications at home although does not follow-up regularly with physicians
- started on low-dose losartan especially considering proteinuria
- Monitor, adjust regimen as needed
DVT prophylaxis: Lovenox
CODE STATUS: Full code
Total time spent with patient care today was 42 minutes.
Anticipated Discharge: > 48 hours
Subjective/Interval History
-
Date of Service: June 10, 2025
Patient was seen and examined at bedside this morning. Comfortable. Awaiting pathology from muscle biopsy.
Objective Data
-
Labs:
Laboratory Results
06/10/25
05:45
WBC 13.9 H
Hgb 14.8
Hct 44.4
Plt Count 300
Sodium 135
Potassium 4.5
Chloride 105
Carbon Dioxide 24
BUN 21 H
Creatinine 0.4 L
Glucose 130 H
Calcium 9.1
Total Bilirubin 1.2
AST 21
ALT 55 H
Alkaline Phosphatase 86
Vital Signs:
Vital Signs
Temp Pulse Resp BP Pulse Ox
97.8 F 66 18 127/79 100
06/10/25 07:13 06/10/25 07:13 06/10/25 07:13 06/10/25 07:13 06/10/25 08:00
I&O
06/09/25 06/10/25 06/11/25
06:59 06:59 06:59
Intake Total 930 / 930 1470 / 1470
Output Total 1625 / 1625 1670 / 1670 775 / 775
Balance -695 / -695 -200 / -200 -775 / -775
Review of Systems
-
History Source: Patient
All other systems: Reviewed and negative
Physical Exam
-
General: No Apparent Distress
[2025-06-10 15:02] VITALS: BP 112/73
[2025-06-10] MEDS: LOVENOX 40 MG SC (17:19)
[2025-06-10 23:01] VITALS: BP 119/87
[2025-06-11 07:04] VITALS: BP 138/86
[2025-06-11] MEDS: COZAAR 25 MG PO (08:26)
[2025-06-11] MEDS: VITAMIN B-12 1000 MCG PO (08:26)
[2025-06-11] MEDS: DELTASONE 50 MG PO (08:26)
--- NOTE | 2025-06-11 09:59 | W.PN.HOSP.TC ---
Today's Communication/Plan
-
Continue prednisone
Follow biopsy report
Check CPK.
Assessment / Plan
Assessment / Plan
Mr. Collins is a 55-year-old male with a medical history of lumbar spinal stenosis (due to vertebral disc herniations, status post spinal fusion at age 19) who presented with progressive weakness in his upper and lower extremities over the past few
months which is now limiting his ability to ambulate. He had previously been able to ambulate with the assistance of a cane or walker. However, recently he has had to move about his home by crawling and now his arms have become so weak he is
unable even to do that which is why he has presented for medical evaluation. He does not follow-up with any physicians on a regular basis.
Generalized weakness secondary to muscle weakness and atrophy
- Appears acute on chronic as he had some residual lower extremity weakness following his spinal fusion at age 19, however has worsened over the last few months and is now affecting his arms as well
- No demyelinating disease seen on brain and C-spine MRI, does show C5-6 uncovertebral/facet disease contributing to minimal spinal canal and moderate neuroforaminal stenosis.
- Does have mildly elevated CK, CRP and ESR within normal limits
- EMG showing inflammatory or toxic/necrotic myopathy, could be seen in polymyositis. Inclusion body myositis could also cause the abnormalities, however, there is sparing of the hand intrinsic musculature which would typically be involved in
inclusion body myositis.
- Case was discussed with medicine and rheumatology at [facility] on 05/29 and they accepted the patient. However after further discussion it is been decided that the best course of action is to obtain muscle biopsy at [facility]
and pathology results will be followed up by the dry mill worker at [facility] with treatment recommendations to follow. If needed patient can be transferred at that time. For now transfer has been canceled. [place] transfer center [phone]
- Muscle biopsy taken from left anterior thigh 06/05, pathology pending
- Started on high-dose steroids 06/05 with prednisone 50 mg p.o. daily - Improvement noted -check CPK
- Will benefit from acute rehab after biopsy results and further treatment plans
Elevated CK:
- Suspect secondary to some form of myositis
- Mild to moderately elevated at 477 => 301 => 115 (after 5 days of steroids)
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
- No renal dysfunction
- ESR and CRP negative
Hyperbilirubinemia:
- Elevated indirect suspicious for Gilbert's
- No abdominal symptoms
- Appears to be an isolated hyperbilirubinemia
- Transaminases and alk phos within normal limits
Hypertension:
- Not on antihypertensive medications at home although does not follow-up regularly with physicians
- started on low-dose losartan especially considering proteinuria
- Monitor, adjust regimen as needed
DVT prophylaxis: Lovenox
CODE STATUS: Full code
Anticipated Discharge: > 48 hours
Subjective/Interval History
-
Date of Service: June 11, 2025
Feeling improved with initiation of steroids.
Upper body including arm strength is better. Able to sit forward by himself. Also feeling strong in his feet with transfers and mobility.
Objective Data
-
Vital Signs:
Vital Signs
Temp Pulse Resp BP Pulse Ox
97.7 F 73 18 138/86 100
06/11/25 07:04 06/11/25 07:04 06/11/25 07:04 06/11/25 07:04 06/11/25 08:00
I&O
06/10/25 06/11/25 06/12/25
06:59 06:59 06:59
Intake Total 1470 / 1470 840 / 840
Output Total 1670 / 1670 2650 / 2650
Balance -200 / -200 -1810 / -1810
Physical Exam
-
Respiratory: Non Labored Respirations; Negative Accessory Resp Muscle Use
Cardiac: Regular Rhythm and S1/S2
Neuro: AO x 3
Psych: Calm
[2025-06-11 15:10] VITALS: BP 115/69
[2025-06-11] MEDS: LOVENOX 40 MG SC (18:12)
[2025-06-11 23:06] VITALS: BP 126/87
[2025-06-12 07:05] VITALS: BP 128/84
[2025-06-12] MEDS: DELTASONE 50 MG PO (08:39)
[2025-06-12] MEDS: COZAAR 25 MG PO (08:39)
[2025-06-12] MEDS: VITAMIN B-12 1000 MCG PO (08:39)
--- NOTE | 2025-06-12 10:21 | W.PN.HOSP.TC ---
Today's Communication/Plan
-
CW steroids per neuro
Await muscle BX report
CW PT
Assessment / Plan
Assessment / Plan
Mr. Collins is a 55-year-old male with a medical history of lumbar spinal stenosis (due to vertebral disc herniations, status post spinal fusion at age 19) who presented with progressive weakness in his upper and lower extremities over the past few
months which is now limiting his ability to ambulate. He had previously been able to ambulate with the assistance of a cane or walker. However, recently he has had to move about his home by crawling and now his arms have become so weak he is
unable even to do that which is why he has presented for medical evaluation. He does not follow-up with any physicians on a regular basis.
Generalized weakness secondary to muscle weakness and atrophy
- Appears acute on chronic as he had some residual lower extremity weakness following his spinal fusion at age 19, however has worsened over the last few months and is now affecting his arms as well
- No demyelinating disease seen on brain and C-spine MRI, does show C5-6 uncovertebral/facet disease contributing to minimal spinal canal and moderate neuroforaminal stenosis.
- Does have mildly elevated CK, CRP and ESR within normal limits
- EMG showing inflammatory or toxic/necrotic myopathy, could be seen in polymyositis. Inclusion body myositis could also cause the abnormalities, however, there is sparing of the hand intrinsic musculature which would typically be involved in
inclusion body myositis.
- Case was discussed with medicine and rheumatology at [facility] on 05/29 and they accepted the patient. However after further discussion it is been decided that the best course of action is to obtain muscle biopsy at [facility]
and pathology results will be followed up by the ambulatory services representative at [facility] with treatment recommendations to follow. If needed patient can be transferred at that time. For now transfer has been canceled. [place] transfer center [phone]
- Muscle biopsy taken from left anterior thigh 06/05, pathology pending
- Started on high-dose steroids 06/05 with prednisone 50 mg p.o. daily - Improvement noted - CPK -normalized
- Will benefit from acute rehab after biopsy results and further treatment plans
- Checked with Path lab today - Muscle bx specimen sent to [facility]
Elevated CK:
- Normalized CPK on steroids
- Suspect secondary to some form of myositis
- Mild to moderately elevated at 477 => 301 => 115 (after 5 days of steroids)
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
- No renal dysfunction
- ESR and CRP negative
Hyperbilirubinemia:
- Elevated indirect suspicious for Gilbert's
- No abdominal symptoms
- Appears to be an isolated hyperbilirubinemia
- Transaminases and alk phos within normal limits
Hypertension:
- Not on antihypertensive medications at home although does not follow-up regularly with physicians
- started on low-dose losartan especially considering proteinuria
- Monitor, adjust regimen as needed
DVT prophylaxis: Lovenox
CODE STATUS: Full code
Anticipated Discharge: > 48 hours
Subjective/Interval History
-
Date of Service: June 12, 2025
No new symptoms
Feeling slowly improved with regards to strength in muscle. Still not able to stand up .No been in chair yet.
Objective Data
-
Vital Signs:
Vital Signs
Temp Pulse Resp BP Pulse Ox
98.4 F 72 18 128/84 100
06/12/25 07:05 06/12/25 08:39 06/12/25 07:05 06/12/25 08:39 06/12/25 07:05
I&O
06/11/25 06/12/25 06/13/25
06:59 06:59 06:59
Intake Total 840 / 840 480 / 480
Output Total 2650 / 2650 1200 / 1200
Balance -1810 / -1810 -720 / -720
Physical Exam
-
General: Comfortable
Respiratory: Non Labored Respirations; Negative Accessory Resp Muscle Use
Cardiac: Regular Rhythm and S1/S2
Neuro: AO x 3
Psych: Calm; Negative Confused
Data Reviewed
-
Labs: Labs Reviewed by me
[2025-06-12 14:17] VITALS: BP 131/92; PULSE 100; O2SAT 100
[2025-06-12 14:21] VITALS: BP 131/92; PULSE 91; O2SAT 100
--- NOTE | 2025-06-12 14:29 | CM ---
CM following re: discharge planning.
Reviewed pt's chart, met with pt.
PT and OT continue recommending acute rehab level of care.
PM&R consult noted - acute rehab recommended.
[place] acute rehabilitation assistant following and determination will be made after after biopsy results and further treatment plans
D/C plan: [place] acute rehab. Awaiting for determination. Pt will need an auth
[2025-06-12 15:15] VITALS: BP 127/78
[2025-06-12] MEDS: LOVENOX 40 MG SC (18:26)
[2025-06-12 23:27] VITALS: BP 124/76
[2025-06-13 07:05] VITALS: BP 137/86
[2025-06-13] MEDS: VITAMIN B-12 1000 MCG PO (09:15)
[2025-06-13] MEDS: DELTASONE 50 MG PO (09:15)
[2025-06-13] MEDS: COZAAR 25 MG PO (09:15)
--- NOTE | 2025-06-13 09:51 | W.PN.NEURO.1 ---
Today's Communication / Plan
-
agree with prednisone 50 milligrams daily
Patient may undergo physical therapy immediately, there is no real risk to profound injury with performance of therapy at this time
Will need outpatient genetic testing
Neuro Assessment/Plan
Assessment
55 year old male with a medical history of lumbar spinal stenosis (due to vertebral disc herniations, status post spinal fusion at age 19) who presented with insidious onset x many years, with progressive weakness in his upper and lower extremities
over the past few months which is now limiting his ability to ambulate.
brain MRI normal
MRI c-spine report mild degenerative changes that do not explain his quadriparesis
EMG showing Inflammatory or toxic/necrotic myopathy.
The abnormalities could be seen in polymyositis.
Labs: Vitamin B12 264, CRP<5, CK 477
Impression: progressive weakness of upper and lower extremities now limiting ambulation
EMG showing myopathy
After the EMG, it was planned for him to transfer to [place] for an inpatient [facility] clinic evaluation, but after several days waiting for a bed, it was determined that they won't be able to take him and the muscle biopsy was performed here
muscle biopsy obtained and sent to [place]
DDX: Inflammatory myopathy that will respond to steroids, or a type of mitochondrial myopathy
Plan
agree with prednisone 50 milligrams daily
Patient may undergo physical therapy immediately, there is no real risk to profound injury with performance of therapy at this time
Will need outpatient genetic testing
Will follow as needed.
Subjective/Objective
Subjective Data
Date of Service: June 13, 2025
Objective Data
Vital Signs
Temp Pulse Resp BP Pulse Ox
36.8 C 68 16 137/86 96
06/13/25 07:05 06/13/25 09:15 06/13/25 07:05 06/13/25 09:15 06/13/25 07:05
Lab Results
06/10/25 05:45
06/10/25 05:45
PT 12.7 Sec (11.4-14.6) 06/05/25 06:09
INR 0.92 06/05/25 06:09
APTT 28.0 Sec (23.4-35.0) 06/05/25 06:09
Sodium 135 mmol/L (135-145) 06/10/25 05:45
Potassium 4.5 mmol/L (3.5-5.1) 06/10/25 05:45
BUN 21 mg/dl (9-20) H 06/10/25 05:45
Glucose 130 mg/dl (70-99) H 06/10/25 05:45
Calcium 9.1 mg/dl (8.4-10.2) 06/10/25 05:45
Phosphorus 3.8 mg/dl (2.5-4.5) 05/28/25 06:57
Vitamin B12 Cancelled 05/28/25 08:31
Patient Allergies
amoxicillin Allergy (Verified 05/26/25 14:18)
Anaphylaxis
Penicillins Allergy (Verified 05/26/25 14:18)
Anaphylaxis
povidone-iodine (From Betadine) Allergy (Verified 05/26/25 14:18)
Rash
Past History
Past History
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
ED Past Surgical History: None
Social History
Tobacco: Non-smoker
Family History
Family History: Other (Reviewed and noncontributory)
Medications
-
Medications:
Generic Name Dose Route Start Last Admin
Trade Name Freq PRN Reason Stop Dose Admin
Acetaminophen 650 mg 05/27/25 03:09
Acetaminophen 325 Mg Tablet PO 06/24/25 03:08
Q4HPRN PRN
mild pain/MARQUES/temp> 100.4F
Bisacodyl 10 mg 05/27/25 03:09
Bisacodyl 10 Mg Rectal Suppository RECTAL 06/24/25 03:08
[id number] PRN
constipation
Calcium Carbonate 400 mg 06/06/25 01:54 06/06/25 02:04
Calcium Antacid 200 Mg (Calcium Carbonate 500 Mg) Chew Tablet PO 07/04/25 01:53 400 mg
Q4HPRN PRN Administration
indigestion
Cyanocobalamin 1,000 mcg 05/30/25 08:00 06/13/25 09:15
Cyanocobalamin (Vitamin B-12) 500 Mcg Tablet PO 06/26/25 07:59 1,000 mcg
DAILY LAVELLE Administration
Enoxaparin Sodium 40 mg 05/27/25 18:00 06/12/25 18:26
Enoxaparin Sodium 40 Mg/0.4 Ml Syringe SC 06/24/25 17:59 40 mg
QPM LAVELLE Administration
Losartan Potassium 25 mg 05/27/25 13:00 06/13/25 09:15
Losartan 25 Mg Tablet PO 06/24/25 12:59 25 mg
DAILY LAVELLE Administration
Ondansetron HCl 4 mg 05/27/25 03:09
Ondansetron 4 Mg/2 Ml Vial IV 06/24/25 03:08
Q6HPRN PRN
nausea and vomiting
Polyethylene Glycol 17 grams 05/27/25 03:09
Polyethylene Glycol Powder 17 Grams Packet PO 06/24/25 03:08
DAILYPRN PRN
constipation
Prednisone 50 mg 06/05/25 18:00 06/13/25 09:15
Prednisone 50 Mg Tablet PO 07/03/25 17:59 50 mg
DAILY LAVELLE Administration
Senna/Docusate Sodium 1 tablet 05/27/25 03:09
Docusate W/Senna (Kelsie-Colace) Tablet PO 06/24/25 03:08
BIDPRN PRN
constipation
Sodium Chloride 0 flush 05/29/25 09:00
Sodium Chloride 0.9% (Flush) Syringe IV 06/26/25 08:59
PER PROTOCOL LAVELLE
--- NOTE | 2025-06-13 10:19 | W.PN.HOSP.TC ---
Today's Communication/Plan
-
Continue with prednisone
Await muscle biopsy report
Assessment / Plan
Assessment / Plan
Mr. Collins is a 55-year-old male with a medical history of lumbar spinal stenosis (due to vertebral disc herniations, status post spinal fusion at age 19) who presented with progressive weakness in his upper and lower extremities over the past few
months which is now limiting his ability to ambulate. He had previously been able to ambulate with the assistance of a cane or walker. However, recently he has had to move about his home by crawling and now his arms have become so weak he is
unable even to do that which is why he has presented for medical evaluation. He does not follow-up with any physicians on a regular basis.
Generalized weakness secondary to muscle weakness and atrophy
- Appears acute on chronic as he had some residual lower extremity weakness following his spinal fusion at age 19, however has worsened over the last few months and is now affecting his arms as well
- No demyelinating disease seen on brain and C-spine MRI, does show C5-6 uncovertebral/facet disease contributing to minimal spinal canal and moderate neuroforaminal stenosis.
- Does have mildly elevated CK, CRP and ESR within normal limits
- EMG showing inflammatory or toxic/necrotic myopathy, could be seen in polymyositis. Inclusion body myositis could also cause the abnormalities, however, there is sparing of the hand intrinsic musculature which would typically be involved in
inclusion body myositis.
- Case was discussed with medicine and rheumatology at [facility] on 05/29 and they accepted the patient. However after further discussion it is been decided that the best course of action is to obtain muscle biopsy at [facility]
and pathology results will be followed up by the color printer operator at [facility] with treatment recommendations to follow. If needed patient can be transferred at that time. For now transfer has been canceled. [place] transfer center [phone]
- Muscle biopsy taken from left anterior thigh 06/05, pathology pending
- Started on high-dose steroids 06/05 with prednisone 50 mg p.o. daily - Improvement noted - CPK -normalized. Continue current dose of prednisone.
- Will benefit from acute rehab after biopsy results and further treatment plans
- Muscle bx specimen sent to [facility]-report pending
Elevated CK:
- Normalized CPK on steroids
- Suspect secondary to some form of myositis
- Mild to moderately elevated at 477 => 301 => 115 (after 5 days of steroids)
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
- No renal dysfunction
- ESR and CRP negative
Hyperbilirubinemia:
- Elevated indirect suspicious for Gilbert's
- No abdominal symptoms
- Appears to be an isolated hyperbilirubinemia
- Transaminases and alk phos within normal limits
Hypertension:
- Not on antihypertensive medications at home although does not follow-up regularly with physicians
- started on low-dose losartan especially considering proteinuria
- Monitor, adjust regimen as needed
DVT prophylaxis: Lovenox
CODE STATUS: Full code
Anticipated Discharge: > 48 hours
Subjective/Interval History
-
Date of Service: June 13, 2025
No overnight events. No new complaints. Slow improvement in his weakness.
Objective Data
-
Vital Signs:
Vital Signs
Temp Pulse Resp BP Pulse Ox
98.2 F 68 16 137/86 96
06/13/25 07:05 06/13/25 09:15 06/13/25 07:05 06/13/25 09:15 06/13/25 07:05
I&O
06/12/25 06/13/25 06/14/25
06:59 06:59 06:59
Intake Total 480 / 480 1280 / 1280
Output Total 1200 / 1200 1650 / 1650
Balance -720 / -720 -370 / -370
Physical Exam
-
General: Comfortable
Respiratory: Non Labored Respirations; Negative Accessory Resp Muscle Use
Cardiac: Regular Rhythm and S1/S2
Neuro: AO x 3
Psych: Calm
--- NOTE | 2025-06-13 13:28 | CM ---
CM following re: discharge planning.
Reviewed pt's chart, met with pt.
PT and OT continue recommending acute rehab level of care.
PM&R consult noted - acute rehab recommended.
[place] acute rehabilitation case coordinator following and determination will be made after after biopsy results and further treatment plans. Report pending.
D/C plan: [facility]. Awaiting for determination. Pt will need an auth
[2025-06-13 15:00] VITALS: BP 134/74
[2025-06-13] MEDS: LOVENOX 40 MG SC (18:09)
[2025-06-13 23:20] VITALS: BP 117/79
[2025-06-14 06:25] VITALS: BMI 29.6
[2025-06-14 07:00] VITALS: BP 134/80
[2025-06-14] MEDS: DELTASONE 50 MG PO (08:57)
[2025-06-14] MEDS: COZAAR 25 MG PO (08:57)
[2025-06-14] MEDS: VITAMIN B-12 1000 MCG PO (08:57)
--- NOTE | 2025-06-14 11:32 | W.PN.HOSP.TC ---
Today's Communication/Plan
-
Follow muscle bx report
CW steroids
Assessment / Plan
Assessment / Plan
Mr. Collins is a 55-year-old male with a medical history of lumbar spinal stenosis (due to vertebral disc herniations, status post spinal fusion at age 19) who presented with progressive weakness in his upper and lower extremities over the past few
months which is now limiting his ability to ambulate. He had previously been able to ambulate with the assistance of a cane or walker. However, recently he has had to move about his home by crawling and now his arms have become so weak he is
unable even to do that which is why he has presented for medical evaluation. He does not follow-up with any physicians on a regular basis.
Generalized weakness secondary to muscle weakness and atrophy
- Appears acute on chronic as he had some residual lower extremity weakness following his spinal fusion at age 19, however has worsened over the last few months and is now affecting his arms as well
- No demyelinating disease seen on brain and C-spine MRI, does show C5-6 uncovertebral/facet disease contributing to minimal spinal canal and moderate neuroforaminal stenosis.
- Does have mildly elevated CK, CRP and ESR within normal limits
- EMG showing inflammatory or toxic/necrotic myopathy, could be seen in polymyositis. Inclusion body myositis could also cause the abnormalities, however, there is sparing of the hand intrinsic musculature which would typically be involved in
inclusion body myositis.
- Case was discussed with medicine and rheumatology at [facility] on 05/29 and they accepted the patient. However after further discussion it is been decided that the best course of action is to obtain muscle biopsy at [facility]
and pathology results will be followed up by the marketing project specialist at [facility] with treatment recommendations to follow. If needed patient can be transferred at that time. For now transfer has been canceled. [place] transfer center [phone]
- Muscle biopsy taken from left anterior thigh 06/05, pathology pending
- Started on high-dose steroids 06/05 with prednisone 50 mg p.o. daily - Improvement noted - CPK -normalized. Continue current dose of prednisone.
- Will benefit from acute rehab after biopsy results and further treatment plans
- Muscle bx specimen sent to [facility]-report still pending
Elevated CK:
- Normalized CPK on steroids
- Suspect secondary to some form of myositis
- Mild to moderately elevated at 477 => 301 => 115 (after 5 days of steroids)
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
- No renal dysfunction
- ESR and CRP negative
Hyperbilirubinemia:
- Elevated indirect suspicious for Gilbert's
- No abdominal symptoms
- Appears to be an isolated hyperbilirubinemia
- Transaminases and alk phos within normal limits
Hypertension:
- Not on antihypertensive medications at home although does not follow-up regularly with physicians
- started on low-dose losartan especially considering proteinuria
- Monitor, adjust regimen as needed
DVT prophylaxis: Lovenox
CODE STATUS: Full code
Anticipated Discharge: > 48 hours
Subjective/Interval History
-
Date of Service: June 14, 2025
No overnight events
Objective Data
-
Vital Signs:
Vital Signs
Temp Pulse Resp BP Pulse Ox
98.2 F 67 18 134/80 100
06/14/25 07:00 06/14/25 07:00 06/14/25 07:00 06/14/25 07:00 06/14/25 07:00
I&O
06/13/25 06/14/25 06/15/25
06:59 06:59 06:59
Intake Total 1280 / 1280 1800 / 1800
Output Total 1650 / 1650 1979 / 1979
Balance -370 / -370 -180 / -180
Physical Exam
-
Respiratory: Non Labored Respirations; Negative Accessory Resp Muscle Use
Cardiac: Regular Rhythm and S1/S2
Neuro: AO x 3
Psych: Calm; Negative Confused
--- NOTE | 2025-06-14 11:41 | CM ---
Following up on patient today.
RN stated that they are still waiting for biopsy report that was sent on 06/05/2025. Referral was made to [facility] weeks prior so once patient is close to discharge, will re-refer to [facility] at that point.
PLAN: Likely Acute Rehab when ready for discharge.
[2025-06-14 15:00] VITALS: BP 117/84
[2025-06-14 16:33] VITALS: BP 139/95; PULSE 112; O2SAT 99
[2025-06-14 16:41] VITALS: BP 139/95; PULSE 112; O2SAT 99
[2025-06-14] MEDS: LOVENOX 40 MG SC (18:10)
[2025-06-14 23:11] VITALS: BP 138/86
[2025-06-14 23:15] VITALS: BP 138/86
[2025-06-15 06:00] VITALS: BMI 29.7
[2025-06-15 07:00] VITALS: BP 140/89
[2025-06-15] MEDS: VITAMIN B-12 1000 MCG PO (08:39)
[2025-06-15] MEDS: COZAAR 25 MG PO (08:39)
[2025-06-15] MEDS: DELTASONE 50 MG PO (08:39)
--- NOTE | 2025-06-15 14:41 | W.PN.NEURO.1 ---
Today's Communication / Plan
-
agree with prednisone 50 milligrams daily until seen by subspecialist
Patient may undergo physical therapy immediately, there is no real risk to profound injury with performance of therapy at this time
Will need outpatient genetic testing for NT5C1A
Neuro Assessment/Plan
Assessment
55 year old male with a medical history of lumbar spinal stenosis (due to vertebral disc herniations, status post spinal fusion at age 19) who presented with insidious onset x many years, with progressive weakness in his upper and lower extremities
over the past few months which is now limiting his ability to ambulate.
brain MRI normal
MRI c-spine report mild degenerative changes that do not explain his quadriparesis
EMG showing Inflammatory or toxic/necrotic myopathy.
The abnormalities could be seen in polymyositis.
Labs: Vitamin B12 264, CRP<5, CK 477
Impression: progressive weakness of upper and lower extremities now limiting ambulation
EMG showing myopathy
After the EMG, it was planned for him to transfer to [place] for an inpatient [facility] clinic evaluation, but after several days waiting for a bed, it was determined that they won't be able to take him and the muscle biopsy was performed here
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
Plan
agree with prednisone 50 milligrams daily until seen by subspecialist
Patient may undergo physical therapy immediately, there is no real risk to profound injury with performance of therapy at this time
Will need outpatient genetic testing for NT5C1A
Will follow as needed.
Subjective/Objective
Subjective Data
Date of Service: June 15, 2025
Objective Data
Vital Signs
Temp Pulse Resp BP Pulse Ox
36.9 C 70 20 140/89 100
06/15/25 07:00 06/15/25 07:00 06/15/25 07:00 06/15/25 07:00 06/15/25 07:00
Lab Results
08/31/25 05:45
06/10/25 05:45
PT 12.7 Sec (11.4-14.6) 06/05/25 06:09
INR 0.92 06/05/25 06:09
APTT 28.0 Sec (23.4-35.0) 06/05/25 06:09
Sodium 135 mmol/L (135-145) 06/10/25 05:45
Potassium 4.5 mmol/L (3.5-5.1) 06/10/25 05:45
BUN 21 mg/dl (9-20) H 06/10/25 05:45
Glucose 130 mg/dl (70-99) H 06/10/25 05:45
Calcium 9.1 mg/dl (8.4-10.2) 06/10/25 05:45
Phosphorus 3.8 mg/dl (2.5-4.5) 05/28/25 06:57
Vitamin B12 Cancelled 05/28/25 08:31
Patient Allergies
amoxicillin Allergy (Verified 05/26/25 14:18)
Anaphylaxis
Penicillins Allergy (Verified 05/26/25 14:18)
Anaphylaxis
povidone-iodine (From Betadine) Allergy (Verified 05/26/25 14:18)
Rash
Past History
Past History
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
ED Past Surgical History: None
Social History
Tobacco: Non-smoker
Family History
Family History: Other (Reviewed and noncontributory)
Medications
-
Medications:
Generic Name Dose Route Start Last Admin
Trade Name Freq PRN Reason Stop Dose Admin
Acetaminophen 650 mg 05/27/25 03:09
Acetaminophen 325 Mg Tablet PO 06/24/25 03:08
Q4HPRN PRN
mild pain/MARQUES/temp> 100.4F
Bisacodyl 10 mg 05/27/25 03:09
Bisacodyl 10 Mg Rectal Suppository RECTAL 06/24/25 03:08
[id number] PRN
constipation
Calcium Carbonate 400 mg 06/06/25 01:54 06/06/25 02:04
Calcium Antacid 200 Mg (Calcium Carbonate 500 Mg) Chew Tablet PO 07/04/25 01:53 400 mg
Q4HPRN PRN Administration
indigestion
Cyanocobalamin 1,000 mcg 05/30/25 08:00 06/15/25 08:39
Cyanocobalamin (Vitamin B-12) 500 Mcg Tablet PO 06/26/25 07:59 1,000 mcg
DAILY LAVELLE Administration
Enoxaparin Sodium 40 mg 05/27/25 18:00 06/14/25 18:10
Enoxaparin Sodium 40 Mg/0.4 Ml Syringe SC 06/24/25 17:59 40 mg
QPM LAVELLE Administration
Losartan Potassium 25 mg 05/27/25 13:00 06/15/25 08:39
Losartan 25 Mg Tablet PO 06/24/25 12:59 25 mg
DAILY LAVELLE Administration
Ondansetron HCl 4 mg 05/27/25 03:09
Ondansetron 4 Mg/2 Ml Vial IV 06/24/25 03:08
Q6HPRN PRN
nausea and vomiting
Polyethylene Glycol 17 grams 05/27/25 03:09
Polyethylene Glycol Powder 17 Grams Packet PO 06/24/25 03:08
DAILYPRN PRN
constipation
Prednisone 50 mg 06/05/25 18:00 06/15/25 08:39
Prednisone 50 Mg Tablet PO 07/03/25 17:59 50 mg
DAILY LAVELLE Administration
Senna/Docusate Sodium 1 tablet 05/27/25 03:09
Docusate W/Senna (Kelsie-Colace) Tablet PO 06/24/25 03:08
BIDPRN PRN
constipation
Sodium Chloride 0 flush 05/29/25 09:00
Sodium Chloride 0.9% (Flush) Syringe IV 06/26/25 08:59
PER PROTOCOL LAVELLE
--- NOTE | 2025-06-15 14:52 | CM ---
Addendum entered by Lucien Hall 06/15/25 16:07:
Per MD biopsy result is back and pt can be discharged to [facility].
CM spoke to [facility] acute court liaison and she confirmed their unit is full and first available bed most likely will be available on Wednesday. Per liaison, she will review the case again and will come back to me on Wednesday. Pt will need an auth after
confirmation that [facility] accepted the pt.
Original Note:
CM following re: discharge planning.
Reviewed pt's chart, met with pt.
PT and OT continue recommending acute rehab level of care.
PM&R consult noted - acute rehab recommended.
[facility] acute court liaison following and determination will be made after after biopsy results and further treatment plans. Report pending.
D/C plan: [facility]. Awaiting for determination. Pt will need an auth
[2025-06-15 15:00] VITALS: BP 127/78
--- NOTE | 2025-06-15 15:29 | W.PN.HOSP.TC ---
Today's Communication/Plan
-
Taper steroids
Acute rehab eval
DC planning
Assessment / Plan
Assessment / Plan
Mr. Collins is a 55-year-old male with a medical history of lumbar spinal stenosis (due to vertebral disc herniations, status post spinal fusion at age 19) who presented with progressive weakness in his upper and lower extremities over the past few
months which is now limiting his ability to ambulate. He had previously been able to ambulate with the assistance of a cane or walker. However, recently he has had to move about his home by crawling and now his arms have become so weak he is
unable even to do that which is why he has presented for medical evaluation. He does not follow-up with any physicians on a regular basis.
Generalized weakness secondary to muscle weakness and atrophy
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
-Discussed with rheumatology team as to [facility] who has no particular recommendation but did give a referral to Dr.Paul Zen finnegan specialist neurologist info at [facility] to follow.
- Told the patient about his diagnosis and gave info for follow up with [facility] neurologist.
- Will start steroids gradually 10 mg every week and once he comes to 20mg dose and if no improvement to consider switch to immune suppressive agents MTX/Azothioprine and see if any reponse
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
- Consult business banker for acute rehab.
Hypertension:
- Not on antihypertensive medications at home although does not follow-up regularly with physicians
- started on low-dose losartan especially considering proteinuria
- Monitor, adjust regimen as needed
DVT prophylaxis: Lovenox
CODE STATUS: Full code
Discussed with trailers and motor homes salesperson at [facility]
Discussed with neurologist at [facility]
Total time spent on today's encounter was 52 minutes which included time spent in counseling the patient/family regarding diagnosis and treatment plan as listed above, goals of care, and symptom management. Case was discussed with nursing staff,
specialists, and care coordinators/case management. All labs and imaging personally reviewed by me. Remainder the time spent in detailed review of previous records, lab data, imaging, and other medical provider documentation.
Anticipated Discharge: 24 - 48 hours
Subjective/Interval History
-
Date of Service: June 15, 2025
No new symptoms. Still with somewhat improved upper body strength .Weak in lower part of body still.
Objective Data
-
Vital Signs:
Vital Signs
Temp Pulse Resp BP Pulse Ox
98.5 F 70 20 140/89 100
06/15/25 07:00 06/15/25 07:00 06/15/25 07:00 06/15/25 07:00 06/15/25 07:00
I&O
06/14/25 06/15/25 06/16/25
06:59 06:59 06:59
Intake Total 1800 / 1800 1030 / 1030
Output Total 1979 / 1979 925 / 925
Balance -180 / -180 105 / 105
Physical Exam
-
General: Comfortable
Respiratory: Non Labored Respirations; Negative Accessory Resp Muscle Use
Cardiac: Regular Rhythm and S1/S2; Negative Tachycardic
Neuro: AO x 3
Data Reviewed
-
Labs: Labs Reviewed by me
[2025-06-15] MEDS: LOVENOX 40 MG SC (18:08)
[2025-06-15 23:07] VITALS: BP 129/80
[2025-06-16 05:39] VITALS: BMI 29.6
[2025-06-16 07:00] VITALS: BP 130/85
[2025-06-16] MEDS: VITAMIN B-12 1000 MCG PO (08:18)
[2025-06-16] MEDS: DELTASONE 40 MG PO (08:18)
[2025-06-16] MEDS: COZAAR 25 MG PO (08:19)
--- NOTE | 2025-06-16 09:56 | W.PN.HOSP.TC ---
Today's Communication/Plan
-
DC planning to acute rehab
Assessment / Plan
Assessment / Plan
Mr. Collins is a 55-year-old male with a medical history of lumbar spinal stenosis (due to vertebral disc herniations, status post spinal fusion at age 19) who presented with progressive weakness in his upper and lower extremities over the past few
months which is now limiting his ability to ambulate. He had previously been able to ambulate with the assistance of a cane or walker. However, recently he has had to move about his home by crawling and now his arms have become so weak he is
unable even to do that which is why he has presented for medical evaluation. He does not follow-up with any physicians on a regular basis.
Generalized weakness secondary to muscle weakness and atrophy
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
- Discussed with rheumatology team at [facility] 06/15 who has no particular recommendation but did give a referral to Dr.Paul Zen finnegan specialist neurologist info at [facility] to follow.
- Told the patient about his diagnosis and gave info for follow up with [facility] neurologist.
- Will start steroids gradually 10 mg every week and once he comes to 20mg dose and if no improvement to consider switch to immune suppressive agents MTX/Azothioprine and see if any reponse
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
- Consult professor of food biochemistry for acute rehab.
Hypertension:
- Not on antihypertensive medications at home although does not follow-up regularly with physicians
- started on low-dose losartan especially considering proteinuria
- Monitor, adjust regimen as needed
DVT prophylaxis: Lovenox
CODE STATUS: Full code
Medically stable for DC to acute rehab
Anticipated Discharge: > 48 hours
Subjective/Interval History
-
Date of Service: June 16, 2025
Looks upbeat today. He said he went online and looked at his medical condition. He is planning on changes with nutritional plan with increased protein intake and omega-3 fatty acids. He is also looking forward for rehab.
Objective Data
-
Vital Signs:
Vital Signs
Temp Pulse Resp BP Pulse Ox
98 F 70 20 130/85 97
06/16/25 07:00 06/16/25 08:19 06/16/25 07:00 06/16/25 08:19 06/16/25 07:00
I&O
06/15/25 06/16/25 06/17/25
06:59 06:59 06:59
Intake Total 1030 / 1030 2340 / 2340
Output Total 925 / 925 2049
Balance 105 / 105 290 / 290
Physical Exam
-
General: Comfortable
Respiratory: Non Labored Respirations; Negative Accessory Resp Muscle Use
Neuro: AO x 3
Psych: Calm; Negative Confused
Data Reviewed
-
Labs: Labs Reviewed by me
[2025-06-16 15:00] VITALS: BP 113/73
[2025-06-16] MEDS: LOVENOX 40 MG SC (17:22)
--- NOTE | 2025-06-16 19:11 | W.PN.NEURO.1 ---
Today's Communication / Plan
-
muscle biopsy obtained and sent to [facility] with a diagnosis of inclusion body myositis (IBM) given. 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
since this is sporadic IBM, and not the hereditary IBM, he�s not really at risk for ALS, frontal, temporal, dementia, or Paget�s disease
steroids are not recommended, and I spoke with the patient and we decided to stop them. Since he�s been on it less than two weeks, there�s no real concern about suppression of Endogenous steroid production.
Unfortunately, it does not respond to any known medications, such as steroids, IVIG, immunosuppressants though there are experimental therapies in the works for which he will need to see [facility] clinic about, and I agree that the patient was referred to
Dr Darwin Kerr at [facility]. .
And as this is not a muscular dystrophy, I agree there is no concern for muscle cell rupture with physical therapy
Neuro Assessment/Plan
Assessment
55 year old male with a medical history of lumbar spinal stenosis (due to vertebral disc herniations, status post spinal fusion at age 19) who presented with insidious onset x many years, with progressive weakness in his upper and lower extremities
over the past few months which is now limiting his ability to ambulate.
brain MRI normal
MRI c-spine report mild degenerative changes that do not explain his quadriparesis
EMG showing Inflammatory or toxic/necrotic myopathy.
The abnormalities could be seen in polymyositis.
Labs: Vitamin B12 264, CRP<5, CK 477
Impression: progressive weakness of upper and lower extremities now limiting ambulation
EMG showing myopathy
After the EMG, it was planned for him to transfer to [facility] for an inpatient [facility] clinic evaluation, but after several days waiting for a bed, it was determined that they won't be able to take him and the muscle biopsy was performed here
muscle biopsy obtained and sent to [facility] with a diagnosis of inclusion body myositis (IBM) given. 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
since this is sporadic IBM, and not the hereditary IBM, he�s not really at risk for ALS, frontal, temporal, dementia, or Paget�s disease
steroids are not recommended, and I spoke with the patient and we decided to stop them. Since he�s been on it less than two weeks, there�s no real concern about suppression of Endogenous steroid production.
Unfortunately, it does not respond to any known medications, such as steroids, IVIG, immunosuppressants though there are experimental therapies in the works for which he will need to see [facility] clinic about, and I agree that the patient was referred to
Dr Darwin Kerr at [facility]. .
And as this is not a muscular dystrophy, I agree there is no concern for muscle cell rupture with physical therapy
Plan
Patient may undergo physical therapy immediately, there is no real risk to profound injury with performance of therapy at this time
Will need outpatient genetic testing for [id number]
Will follow as needed.
Subjective/Objective
Subjective Data
Date of Service: June 16, 2025
patient reports feeling stronger with exercise.
Objective Data
Vital Signs
Temp Pulse Resp BP Pulse Ox
37.2 C 89 20 113/73 97
06/16/25 15:00 06/16/25 15:00 06/16/25 15:00 06/16/25 15:00 06/16/25 15:00
Lab Results
06/10/25 05:45
06/10/25 05:45
PT 12.7 Sec (11.4-14.6) 06/05/25 06:09
INR 0.92 06/05/25 06:09
APTT 28.0 Sec (23.4-35.0) 06/05/25 06:09
Sodium 135 mmol/L (135-145) 06/10/25 05:45
Potassium 4.5 mmol/L (3.5-5.1) 06/10/25 05:45
BUN 21 mg/dl (9-20) H 06/10/25 05:45
Glucose 130 mg/dl (70-99) H 06/10/25 05:45
Calcium 9.1 mg/dl (8.4-10.2) 06/10/25 05:45
Phosphorus 3.8 mg/dl (2.5-4.5) 05/28/25 06:57
Vitamin B12 Cancelled 05/28/25 08:31
Patient Allergies
amoxicillin Allergy (Verified 05/26/25 14:18)
Anaphylaxis
Penicillins Allergy (Verified 05/26/25 14:18)
Anaphylaxis
povidone-iodine (From Betadine) Allergy (Verified 05/26/25 14:18)
Rash
[2025-06-16 23:00] VITALS: BP 131/86
[2025-06-17 04:54] VITALS: BMI 29.6
[2025-06-17 07:05] VITALS: BP 129/84
[2025-06-17] MEDS: VITAMIN B-12 1000 MCG PO (07:33)
[2025-06-17] MEDS: COZAAR 25 MG PO (07:33)
[2025-06-17 07:57] LABS: Hematocrit 46.8 % (39.0-52.0); Hemoglobin 15.2 g/dL (13.0-18.0); Mean Corp Hgb Conc. 32.5 g/dL (33.0-37.0); Mean Corpuscular Volume 86.2 fL (80.0-94.0); Platelet Count 309 10^3/uL (130-400); Red Cell Dist. Width 13.5 % (11.5-14.5)
[2025-06-17 08:04] LABS: Blood Urea Nitrogen 25 mg/dl (9-20); Calcium 9.1 mg/dl (8.4-10.2); Carbon Dioxide 27 mmol/L (22-30); Chloride 103 mmol/L (98-107); Estimated Creatinine Clearance > 125 ml/min; Glucose 89 mg/dl (70-99); Potassium 4.3 mmol/L (3.5-5.1); Sodium 135 mmol/L (135-145); eGFR > 60.00
--- NOTE | 2025-06-17 09:12 | W.PN.HOSP.TC ---
Today's Communication/Plan
-
Off of steroids now
Continue with PT
Await acute rehab placement
Assessment / Plan
Assessment / Plan
Mr. Collins is a 55-year-old male with a medical history of lumbar spinal stenosis (due to vertebral disc herniations, status post spinal fusion at age 19) who presented with progressive weakness in his upper and lower extremities over the past few
months which is now limiting his ability to ambulate. He had previously been able to ambulate with the assistance of a cane or walker. However, recently he has had to move about his home by crawling and now his arms have become so weak he is
unable even to do that which is why he has presented for medical evaluation. He does not follow-up with any physicians on a regular basis.
Generalized weakness secondary to muscle weakness and atrophy
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
- Discussed with rheumatology team at [facility] 06/15 who has no particular recommendation but did give a referral to Dr.Paul Zen finnegan specialist neurologist info at [facility] to follow.
- Told the patient about his diagnosis and gave info for follow up with [facility] neurologist.
- Was put on steroids but that discussed with Dr. 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
discontinued now.
-Continue with physical therapy. Await acute rehab placement.
-Follow-up with neuromuscular disease specialist at after discharge.
Hypertension:
- Not on antihypertensive medications at home although does not follow-up regularly with physicians
- started on low-dose losartan especially considering proteinuria
- Monitor, adjust regimen as needed
DVT prophylaxis: Lovenox
CODE STATUS: Full code
Medically stable for DC to acute rehab
Anticipated Discharge: Within 24 hours
Subjective/Interval History
-
Date of Service: June 17, 2025
No overnight events.
Voices no specific complaints.
Tolerating diet without nausea or vomiting. No swallowing difficulty. No voiding difficulties.
Objective Data
-
Labs:
Laboratory Results
06/17/25
07:11
WBC 13.7 H
Hgb 15.2
Hct 46.8
Plt Count 309
Sodium 135
Potassium 4.3
Chloride 103
Carbon Dioxide 27
BUN 25 H
Creatinine 0.6 L
Glucose 89
Calcium 9.1
Vital Signs:
Vital Signs
Temp Pulse Resp BP Pulse Ox
98.4 F 73 16 129/84 100
06/17/25 07:05 06/17/25 07:33 06/17/25 07:05 06/17/25 07:33 06/17/25 07:05
I&O
06/16/25 06/17/25 06/18/25
06:59 06:59 06:59
Intake Total 2340 / 2340 2340 / 2340
Output Total 2049 2450 / 245
Balance 290 / 290 -110 / -110
Physical Exam
-
General: Comfortable
Respiratory: Non Labored Respirations; Negative Accessory Resp Muscle Use
Cardiac: Regular Rhythm and S1/S2
Neuro: AO x 3
Psych: Calm; Negative Confused or Agitated
Data Reviewed
-
Labs: Labs Reviewed by me
[2025-06-17 11:27] VITALS: BP 145/86; PULSE 85; O2SAT 99
[2025-06-17 15:00] VITALS: BP 110/72
[2025-06-17] MEDS: LOVENOX 40 MG SC (17:09)
[2025-06-17 23:32] VITALS: BP 114/70
[2025-06-18 04:48] VITALS: BMI 30.1
[2025-06-18 07:05] VITALS: BP 134/84
[2025-06-18] MEDS: VITAMIN B-12 1000 MCG PO (09:31)
[2025-06-18] MEDS: COZAAR 25 MG PO (09:31)
[2025-06-18 09:34] VITALS: BP 161/99; PULSE 88
[2025-06-18 10:08] VITALS: BP 161/99; PULSE 88
--- NOTE | 2025-06-18 11:38 | CM ---
CM following re: discharge planning.
reviewed pt's chart, met with pt.
According to pt is medically stable to be discharge.
PM&R, PT and OT continue recommending acute rehab and pt preferred [facility].
CM spoke to [facility] clinical liaison and she confirmed [facility] and [facility] a bed available at [facility] [place]. Per liaison, by the time an auth is obtained they might have a bed available at
location. Pt is aware, expressed his agreement.
CM initiated an auth from [employer], , spoke to field support representative Jose, [facility] and requested pt's clinical faxed to [employer] for review [phone]. Reference
call number: [id number]. [facility] it will take up to 5 days to provide an auth.
Awaiting for an auth from [employer]
D/C plan: [facility] when an auth available.
CM will follow to assist pt with discharge to [facility].
--- NOTE | 2025-06-18 12:29 | W.PN.HOSP.TC ---
Today's Communication/Plan
-
Assessment / Plan
Assessment / Plan
Mr. Collins is a 55-year-old male with a medical history of lumbar spinal stenosis (due to vertebral disc herniations, status post spinal fusion at age 19) who presented with progressive weakness in his upper and lower extremities over the past few
months which is now limiting his ability to ambulate. He had previously been able to ambulate with the assistance of a cane or walker. However, recently he has had to move about his home by crawling and now his arms have become so weak he is
unable even to do that which is why he has presented for medical evaluation. He does not follow-up with any physicians on a regular basis.
Generalized weakness secondary to muscle weakness and atrophy
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
- Discussed with rheumatology team at [facility] 06/15 who has no particular recommendation but did give a referral to Dr. Darwin Kerr NM disease specialist neurologist info at [facility] to follow.
- Patient was given information about his diagnosis and info for follow up with [facility] neurologist, he called neurology office this morning and left a message to set up an appointment.
- Was put on steroids but discussed with Dr. 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
discontinued.
-Continue with physical therapy. Await acute rehab placement.
-Follow-up with neuromuscular disease specialist at [facility] after discharge.
Hypertension:
- Not on antihypertensive medications at home although does not follow-up regularly with physicians
- started on low-dose losartan especially considering proteinuria
- Monitor, adjust regimen as needed
DVT prophylaxis: Lovenox
CODE STATUS: Full code
Medically stable for DC to acute rehab
Anticipated Discharge: 24 - 48 hours
Subjective/Interval History
-
Date of Service: June 18, 2025
Patient was seen and examined at bedside this morning. Feeling stronger. Eagerly awaiting acute rehab placement.
Objective Data
-
Vital Signs:
Vital Signs
Temp Pulse Resp BP Pulse Ox
97.8 F 75 16 134/84 100
06/18/25 07:05 06/18/25 09:31 06/18/25 07:05 06/18/25 09:31 06/18/25 07:05
I&O
06/17/25 06/18/25 06/19/25
06:59 06:59 06:59
Intake Total 2340 / 2340 1320 / 1320
Output Total 2450 / 2450 1500 / 1500
Balance -110 / -110 -180 / -180
Review of Systems
-
History Source: Patient
All other systems: Reviewed and negative
Neuro: Reports Weakness
Physical Exam
-
General: No Apparent Distress
[2025-06-18 16:42] VITALS: BP 125/75
[2025-06-18] MEDS: LOVENOX 40 MG SC (17:16)
[2025-06-18 23:12] VITALS: BP 122/79
[2025-06-19 05:59] VITALS: BMI 29.7
[2025-06-19 07:14] VITALS: BP 116/78
[2025-06-19] MEDS: VITAMIN B-12 1000 MCG PO (07:48)
[2025-06-19] MEDS: COZAAR 25 MG PO (07:48)
--- NOTE | 2025-06-19 09:36 | CM ---
Addendum entered by Lily Prado 06/19/25 12:26:
Fax from [facility] requesting clinicals. reference # [id number] for Acute Rehab. Clinicals faxed to [phone], fax confirmation sheet received.
Original Note:
left vm at [facility] to check on auth [id number], await TCB.
--- NOTE | 2025-06-19 10:42 | W.PN.HOSP.TC ---
Today's Communication/Plan
-
Assessment / Plan
Assessment / Plan
Mr. Collins is a 55-year-old male with a medical history of lumbar spinal stenosis (due to vertebral disc herniations, status post spinal fusion at age 19) who presented with progressive weakness in his upper and lower extremities over the past few
months which is now limiting his ability to ambulate. He had previously been able to ambulate with the assistance of a cane or walker. However, recently he has had to move about his home by crawling and now his arms have become so weak he is
unable even to do that which is why he has presented for medical evaluation. He does not follow-up with any physicians on a regular basis.
Generalized weakness secondary to muscle weakness and atrophy
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
- Discussed with rheumatology team at [facility] 06/15 who has no particular recommendation but did give a referral to Dr. Darwin Kerr NM disease specialist neurologist info at [facility] to follow.
- Patient was given information about his diagnosis and info for follow up with [facility] neurologist, he called neurology office this morning and left a message to set up an appointment.
- Was put on steroids but discussed with Dr. 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
discontinued.
-Continue with physical therapy.
- Medically stable, awaiting acute rehab placement.
-Follow-up with neuromuscular disease specialist at [facility] after discharge.
Hypertension:
- Not on antihypertensive medications at home although does not follow-up regularly with physicians
- started on low-dose losartan especially considering proteinuria
- Monitor, adjust regimen as needed
DVT prophylaxis: Lovenox
CODE STATUS: Full code
Medically stable for DC to acute rehab
Anticipated Discharge: 24 - 48 hours
Subjective/Interval History
-
Date of Service: June 19, 2025
Patient was seen and examined at bedside this morning. Says he is feeling stronger every day. Awaiting acute rehab placement.
Objective Data
-
Vital Signs:
Vital Signs
Temp Pulse Resp BP Pulse Ox
98.0 F 67 18 116/79 100
06/19/25 07:14 06/19/25 07:48 06/19/25 07:14 06/19/25 07:48 06/19/25 07:14
I&O
06/18/25 06/19/25 06/20/25
06:59 06:59 06:59
Intake Total 1320 / 1320 1200 / 1200
Output Total 1500 / 1500 2175 / 2175
Balance -180 / -180 -975 / -975
Review of Systems
-
History Source: Patient
All other systems: Reviewed and negative
Physical Exam
-
General: No Apparent Distress
--- NOTE | 2025-06-19 12:31 | CM ---
Patient seen at bedside on 2 . Patient mother also present and expressed frustration with process and slowness of plan. CM reviewed insurance status and efforts to obtain auth. Mother indicated understanding and willingness to support patient
in plan. CM will continue to follow for discharge planning needs.
Plan; [facility] pending bed availability and insurance authorization when obtained.
[2025-06-19 15:08] VITALS: BP 117/72
[2025-06-19] MEDS: LOVENOX 40 MG SC (17:22)
[2025-06-19 23:00] VITALS: BP 123/76
[2025-06-20 06:00] VITALS: BMI 29.9
[2025-06-20 07:05] VITALS: BP 146/79
[2025-06-20] MEDS: VITAMIN B-12 1000 MCG PO (09:05)
[2025-06-20] MEDS: COZAAR 25 MG PO (09:05)
--- NOTE | 2025-06-20 10:50 | WOUNDNOTE ---
[facility] RN note: Patient seen during pressure injury prevention rounds. Patient's sacral and heel skin intact. Heel skin blanchable mild red and intact. Skin dry on feet. Forefeet with dry, mild red skin suspect could be athlete's feet. Patient declined
antifungal cream. Patient also declined: heel elevation, protective heel foam dressings and an air chair cushion. Patient is on a Centrella Pro mattress. Patient stated he moves self in the bed frequently and is comfortable on current bed. Po intake
is documented 100%. Patient waiting for [facility] approval. Instructed patient pressure injury prevention measures including elevating heels off bed. Discussed with DAVIDE Yu.
[2025-06-20 11:58] VITALS: BP 135/88; PULSE 82
[2025-06-20 12:01] VITALS: BP 135/88; PULSE 82
--- NOTE | 2025-06-20 12:49 | W.PN.HOSP.TC ---
Today's Communication/Plan
-
Assessment / Plan
Assessment / Plan
General: No Apparent Distress, Comfortable and Conversant
HEENT: NormoCephalic, Moist mucous membranes, Atraumatic
Respiratory: Clear and Non Labored Respirations
Cardiac: S1/S2 and Regular Rhythm; No Rub or Gallop
GI: Soft, Non Tender, Non Distended and Normal Bowel Sounds
Musculoskeletal: No Edema, no deformity, decreased muscle bulk throughout upper and lower extremities
Skin: Warm and dry, no deformity
: NO Urena
Neuro: Awake, Alert, Nonfocal/grossly intact, improving upper extremity paresthesias, generalized weakness in his extremities (lower extremities worse than upper extremities)
Psych: Calm and Intact Judgment/Insight
Mr. Collins is a 55-year-old male with a medical history of lumbar spinal stenosis (due to vertebral disc herniations, status post spinal fusion at age 19) who presented with progressive weakness in his upper and lower extremities over the past few
months which is now limiting his ability to ambulate. He had previously been able to ambulate with the assistance of a cane or walker. However, recently he has had to move about his home by crawling and now his arms have become so weak he is
unable even to do that which is why he has presented for medical evaluation. He does not follow-up with any physicians on a regular basis.
Generalized weakness secondary to muscle weakness and atrophy
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
- Discussed with rheumatology team at [facility] 06/15 who has no particular recommendation but did give a referral to Dr. Darwin Kerr NM disease specialist neurologist info at [facility] to follow.
- Patient was given information about his diagnosis and info for follow up with [facility] neurologist, he called neurology office this morning and left a message to set up an appointment.
- Was put on steroids but discussed with Dr. 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
discontinued.
-Continue with physical therapy.
- Medically stable, awaiting acute rehab placement.
-Follow-up with neuromuscular disease specialist at [facility] after discharge.
Hypertension:
- Not on antihypertensive medications at home although does not follow-up regularly with physicians
- started on low-dose losartan especially considering proteinuria
- Monitor, adjust regimen as needed
DVT prophylaxis: Lovenox
CODE STATUS: Full code
Medically stable for DC to acute rehab
Anticipated Discharge: 24 - 48 hours
Subjective/Interval History
-
Date of Service: June 20, 2025
Patient was seen and examined at bedside this morning. Comfortable. Awaiting acute rehab placement.
Objective Data
-
Vital Signs:
Vital Signs
Temp Pulse Resp BP Pulse Ox
97.9 F 71 16 146/79 100
06/20/25 07:05 06/20/25 07:05 06/20/25 07:05 06/20/25 07:05 06/20/25 07:05
I&O
06/19/25 06/20/25 06/21/25
06:59 06:59 06:59
Intake Total 1200 / 1200 1440 / 1440
Output Total 2175 / 2175 1550 / 1550
Balance -975 / -975 -110 / -110
Review of Systems
-
History Source: Patient
All other systems: Reviewed and negative
Neuro: Reports Weakness
Physical Exam
-
General: No Apparent Distress
[2025-06-20 15:00] VITALS: BP 133/84
--- NOTE | 2025-06-20 15:38 | CM ---
CM following re: discharge planning.
Reviewed pt' chart, met with pt. Pt politely accepted his waiting time for insurance approval stating he understand health care system.
[facility] spoke to door to door sales representative Brittany and she confirmed that an auth still pending.
D/C plan: [facility]. Awaiting for an auth
CM will follow to assist pt with discharge to [facility].
[2025-06-20] MEDS: LOVENOX 40 MG SC (17:03)
[2025-06-20 23:00] VITALS: BP 129/81
[2025-06-21 05:02] VITALS: BMI 29.5
[2025-06-21 07:00] VITALS: BP 127/79
[2025-06-21] MEDS: COZAAR 25 MG PO (07:49)
[2025-06-21] MEDS: VITAMIN B-12 1000 MCG PO (07:49)
--- NOTE | 2025-06-21 10:56 | W.PN.HOSP.TC ---
Today's Communication/Plan
-
Assessment / Plan
Assessment / Plan
General: No Apparent Distress, Comfortable and Conversant
HEENT: NormoCephalic, Moist mucous membranes, Atraumatic
Respiratory: Clear and Non Labored Respirations
Cardiac: S1/S2 and Regular Rhythm; No Rub or Gallop
GI: Soft, Non Tender, Non Distended and Normal Bowel Sounds
Musculoskeletal: No Edema, no deformity, decreased muscle bulk throughout upper and lower extremities
Skin: Warm and dry, no deformity
: NO Urena
Neuro: Awake, Alert, Nonfocal/grossly intact, improving upper extremity paresthesias, generalized weakness in his extremities (lower extremities worse than upper extremities)
Psych: Calm and Intact Judgment/Insight
Mr. Collins is a 55-year-old male with a medical history of lumbar spinal stenosis (due to vertebral disc herniations, status post spinal fusion at age 19) who presented with progressive weakness in his upper and lower extremities over the past few
months which is now limiting his ability to ambulate. He had previously been able to ambulate with the assistance of a cane or walker. However, recently he has had to move about his home by crawling and now his arms have become so weak he is
unable even to do that which is why he has presented for medical evaluation. He does not follow-up with any physicians on a regular basis.
Generalized weakness secondary to muscle weakness and atrophy
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
- Discussed with rheumatology team at [facility] 06/15 who has no particular recommendation but did give a referral to Dr. Darwin Kerr NM disease specialist neurologist info at [facility] to follow.
- Patient was given information about his diagnosis and info for follow up with [facility] neurologist, he called neurology office this morning and left a message to set up an appointment.
- Was put on steroids but discussed with Dr. 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
discontinued.
-Continue with physical therapy.
- Medically stable, awaiting acute rehab placement.
-Follow-up with neuromuscular disease specialist at [facility] after discharge.
Hypertension:
- Not on antihypertensive medications at home although does not follow-up regularly with physicians
- started on low-dose losartan especially considering proteinuria
- Monitor, adjust regimen as needed
DVT prophylaxis: Lovenox
CODE STATUS: Full code
Medically stable for DC to acute rehab
Anticipated Discharge: 24 - 48 hours
Subjective/Interval History
-
Date of Service: June 21, 2025
Patient was seen and examined at bedside this morning. Comfortable. Awaiting acute rehab placement.
Objective Data
-
Vital Signs:
Vital Signs
Temp Pulse Resp BP Pulse Ox
98.4 F 69 20 127/79 100
06/21/25 07:00 06/21/25 07:00 06/21/25 07:00 06/21/25 07:00 06/21/25 07:00
I&O
06/20/25 06/21/25 06/22/25
06:59 06:59 06:59
Intake Total 1440 / 1440 1560 / 1560
Output Total 1550 / 1550 1600 / 1600
Balance -110 / -110 -40 / -40
Review of Systems
-
History Source: Patient
All other systems: Reviewed and negative
Physical Exam
-
General: No Apparent Distress
--- NOTE | 2025-06-21 14:42 | CM ---
CM following re: discharge planning.
Reviewed pt' chart, met with pt.
CM called [employer] [phone], spoke to telemarketing sales representative Jhony and she confirmed that an auth still pending and per representative Booker, [facility] policy requires 10 business days to obtain an auth. CM stated that it was
mentioned on Wednesday06/18/25 by [facility] telemarketing sales representative that it takes 5 business days and representative Booker corrected - 10 business days. Case number remains the same: [id number]
Pt has been notified, responded with disappointed laughing and at the same time expressed understanding of health care insurances policies.
D/C plan: [facility]. Awaiting for an auth
CM will follow to assist pt with discharge to [facility].
[2025-06-21 15:02] VITALS: BP 128/86
[2025-06-21] MEDS: LOVENOX 40 MG SC (17:10)
[2025-06-21 23:02] VITALS: BP 115/81
[2025-06-22 07:00] VITALS: BP 119/78
[2025-06-22] MEDS: COZAAR 25 MG PO (08:38)
[2025-06-22] MEDS: VITAMIN B-12 1000 MCG PO (08:38)
--- NOTE | 2025-06-22 10:13 | W.PN.HOSP.TC ---
Today's Communication/Plan
-
Assessment / Plan
Assessment / Plan
General: No Apparent Distress, Comfortable and Conversant
HEENT: NormoCephalic, Moist mucous membranes, Atraumatic
Respiratory: Clear and Non Labored Respirations
Cardiac: S1/S2 and Regular Rhythm; No Rub or Gallop
GI: Soft, Non Tender, Non Distended and Normal Bowel Sounds
Musculoskeletal: No Edema, no deformity, decreased muscle bulk throughout upper and lower extremities
Skin: Warm and dry, no deformity
: NO Urena
Neuro: Awake, Alert, Nonfocal/grossly intact, improving upper extremity paresthesias, generalized weakness in his extremities (lower extremities worse than upper extremities)
Psych: Calm and Intact Judgment/Insight
Mr. Collins is a 55-year-old male with a medical history of lumbar spinal stenosis (due to vertebral disc herniations, status post spinal fusion at age 19) who presented with progressive weakness in his upper and lower extremities over the past few
months which is now limiting his ability to ambulate. He had previously been able to ambulate with the assistance of a cane or walker. However, recently he has had to move about his home by crawling and now his arms have become so weak he is
unable even to do that which is why he has presented for medical evaluation. He does not follow-up with any physicians on a regular basis.
Generalized weakness secondary to muscle weakness and atrophy
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
- Discussed with rheumatology team at [facility] 06/15 who has no particular recommendation but did give a referral to Dr. Darwin Kerr NM disease specialist neurologist info at [facility] to follow.
- Patient was given information about his diagnosis and info for follow up with [facility] neurologist, he called neurology office this morning and left a message to set up an appointment.
- Was put on steroids but discussed with Dr. 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
discontinued.
-Continue with physical therapy.
- Medically stable, awaiting acute rehab placement.
-Follow-up with neuromuscular disease specialist at [facility] after discharge.
Hypertension:
- Not on antihypertensive medications at home although does not follow-up regularly with physicians
- started on low-dose losartan especially considering proteinuria
- Monitor, adjust regimen as needed
DVT prophylaxis: Lovenox
CODE STATUS: Full code
Medically stable for DC to acute rehab
Anticipated Discharge: > 48 hours
Subjective/Interval History
-
Date of Service: June 22, 2025
Patient was seen and examined at bedside this morning. Feeling well. Still awaiting acute rehab placement.
Objective Data
-
Vital Signs:
Vital Signs
Temp Pulse Resp BP Pulse Ox
98.2 F 72 20 119/78 99
06/22/25 07:00 06/22/25 07:00 06/22/25 07:00 06/22/25 07:00 06/22/25 07:00
I&O
06/21/25 06/22/25 06/23/25
06:59 06:59 06:59
Intake Total 1560 / 1560 2400 / 2400
Output Total 1600 / 1600 1590 / 1590
Balance -40 / -40 810 / 810
Review of Systems
-
History Source: Patient
All other systems: Reviewed and negative
Physical Exam
-
General: No Apparent Distress
[2025-06-22 15:00] VITALS: BP 113/79
--- NOTE | 2025-06-22 15:18 | CM ---
Chart reviewed. [facility]
CM received call from [facility] w/ approved auth. Auth approved beginning 06/21, but will be adjusted to a start date of today, next review date is 06/29. Requesting for clinicals to be faxed a day before for updates.
Case number remains the same: [id number]
Updated Jacqueline/Derick
Updated hospitalist and nurse
Plan: D/c to [facility] re[facility] today
--- NOTE | 2025-06-22 15:35 | W.DCSUMMARY ---
Discharge Summary
Discharge Data
Date of Admission: 05/28/25
Date of Discharge: 06/22/25
Total time spent discharging patient (in min): 46
-
Pending Results: No
Hospital Course
Mr. Collins is a 55-year-old male with a medical history of lumbar spinal stenosis (due to vertebral disc herniations, status post spinal fusion at age 19) who presented with progressive weakness in his upper and lower extremities over the past few
months which was limiting his ability to ambulate. He had previously been able to ambulate with the assistance of a cane or walker. However, recently he has had to move about his home by crawling and now his arms have become so weak he is unable
even to do that which is why he presented for medical evaluation. He was admitted for further evaluation and management
MRI showed no evidence of demyelinating disease or stenosis that would explain his symptoms. EMG indicated inflammatory or toxic/necrotic myopathy. He underwent muscle biopsy from left anterior thigh on 06/05 and was subsequently started on
high-dose steroids. Biopsy results were positive for inclusion body myositis. Case was discussed with internal medicine and rheumatology at [facility] who recommended outpatient follow-up with Dr. Darwin Kerr who is a
neuromuscular specialist in the neurology department at [facility]. Steroids were ultimately discontinued. He was evaluated by physical and Occupational Therapy and ultimately excepted at [facility] for ongoing therapy after
hospital discharge. He was medically stable for discharge to [facility] acute rehab unit. He will need to follow-up with the neuromuscular specialist at [facility] after his time at rehab. Of note, he was started on low-dose losartan for blood pressure
control. He did have mild proteinuria noted on his urinalysis and will need to follow-up with his primary care physician for ongoing monitoring and medication adjustments as needed.
General: No Apparent Distress, Comfortable and Conversant
HEENT: NormoCephalic, Moist mucous membranes, Atraumatic
Respiratory: Clear and Non Labored Respirations
Cardiac: S1/S2 and Regular Rhythm; No Rub or Gallop
GI: Soft, Non Tender, Non Distended and Normal Bowel Sounds
Musculoskeletal: No Edema, no deformity, decreased muscle bulk throughout upper and lower extremities
Skin: Warm and dry, no deformity
: NO Urena
Neuro: Awake, Alert, Nonfocal/grossly intact, improving upper extremity paresthesias, generalized weakness in his extremities (lower extremities worse than upper extremities)
Psych: Calm and Intact Judgment/Insight
Discharge Plan
-
Patient Disposition: Acute Care Hospital
Discharge Orders:
Discharge Patient (As Directed); Ordered 06/22/25
Ordered By: Juan R Gill
Discharge Date and Time
Print Language: BENGALI
== END 2025-06-22 17:58 | DRG 501 ==
LOC: 2 NORTH 08:01
PROVIDERS: Internal Medicine; Physician Assistant; Psychiatry & Neurology Neurology; Registered Nurse; ADMITTING PHYSICIAN Internal Medicine; ATTENDING PHYSICIAN Internal Medicine; CONSULT PHYSICIAN Physical Medicine & Rehabilitation; CONSULT PHYSICIAN Psychiatry & Neurology Clinical Neurophysiology; EMERGENCY PHYSICIAN Student in an Organized Health Care Education/Training Program; FAMILY PHYSICIAN Internal Medicine; OTHER PHYSICIAN Surgery
PROC: 0KBR0ZX Excision of Left Upper Leg Muscle, Open Approach, Diagnostic (ICD-10-PCS; 2025-06-05)
DX: G72.41 Inclusion body myositis [IBM] (principal); G72.81 Critical illness myopathy; M62.50 Muscle wasting and atrophy, not elsewhere classified, unspecified site; I11.9 Hypertensive heart disease without heart failure; E11.41 Type 2 diabetes mellitus with diabetic mononeuropathy; E87.6 Hypokalemia; E80.6 Other disorders of bilirubin metabolism; R80.9 Proteinuria, unspecified; Z98.1 Arthrodesis status; Z88.0 Allergy status to penicillin; Z91.041 Radiographic dye allergy status; Z91.81 History of falling
CPT/HCPCS: 70450; 70551; 72141; 80048; 80053; 81003; 81015; 82248; 82550; 82607; 82746; 83735; 84100; 84155; 84165; 84443; 85025; 85027; 85610; 85652; 85730; 86038; 86140; 93306; 95886; 95911; 97110; 97163; 97167; 97530; 97535; 99284